=== PATIENT | female | born 1980 | race African-American/Black ===

== ENCOUNTER 2017-03-31 18:56 | Emergency (ER) | payer OTHER ==
[2017-03-31] MEDS ORDERED: ACETAMINOPHEN TAB 500 MG TAB PO STA (19:13)
--- NOTE | 2017-03-31 19:29 | ED ---
General Adult HPI - General Chief complaint: Chest Pain Stated complaint: chest pain Time Seen by Provider: 03/31/17 19:03 Source: patient, family, RN notes reviewed, old records reviewed Mode of arrival: wheelchair Limitations: no limitations - History of Present Illness Initial comments: Chief complaint and history of present illness a 36-year-old female here with his significant other. The patient reports she's had on-again off-again chest discomfort. No sensation. Nausea vomiting, no chills no fever no radiation of pain. Somewhat reproducible with deep pressure over the anterior chest wall. She can't think of having injured it but she does cleaning homes as a job. Patient reports she has had chest pain in the past review of her past chart from August 2015 find the patient with very similar complaints as final diagnosis of costochondritis. Patient states it feels somewhat like that. - Related Data Previous Rx's Medication Instructions Recorded Ibuprofen [Motrin] 600 mg PO Q6HR PRN #15 tab 03/31/17 Allergies Allergy/AdvReac Type Severity Reaction Status Date / Time No Known Allergies Allergy Verified 03/31/17 19:40 Review of Systems ROS Statement: Those systems with pertinent positive or pertinent negative responses have been documented in the HPI. Review of systems no visual acuity changes no headache no stiff neck no shortness of breath. She has anterior chest wall discomfort which can be reproduced by pushing hard on the anterior chest wall. Patient denies rashes or injuries. She does do housecleaning and some heavy lifting. Patient denies any GI/ problems or nausea vomiting or diarrhea. No change in appetite. No neuro deficits. All systems were reviewed. Past medical problems significant for hypertension and sickle cell trait. The patient's surgeries none. Family history grandmother had heart disease. Patient denies ALLERGIES nonsmoker drinks alcohol socially. She does smoke marijuana. ROS Other: All systems not noted in ROS Statement are negative. Past Medical History Past Medical History: Hypertension Additional Past Medical History / Comment(s): sickle cell trait History of Any Multi-Drug Resistant Organisms: None Reported Past Surgical History: No Surgical Hx Reported Past Psychological History: No Psychological Hx Reported Smoking Status: Never smoker Past Alcohol Use History: Occasional Past Drug Use History: Marijuana General Exam - General Exam Comments Initial Comments: General: The patient is awake and alert, in no distress, and does not appear acutely ill. You have a complaint of anterior chest wall discomfort. Vital signs shows temperature 98.2 pulse 80 respiratory rate 20 pulse ox 90% room air blood pressure 167/96. Patient reports that she does have a diagnosis of hypertension she used to be on blood pressure pills but has been noncompliant has not gone back for refills. We did discuss [id number] the danger of hypertension and the progressive worsening of symptoms possible stroke and heart attack. Eye: Pupils are equal, round and reactive to light, extra-ocular movements are intact ; there is normal conjunctiva bilaterally. No signs of icterus. Ears, nose, mouth and throat: There are moist mucous membranes and no oral lesions. Neck: The neck is supple, there is no tenderness. Cardiovascular: There is a regular rate and rhythm. No murmur, rub or gallop is appreciated. Slightly reproducible discomfort with her pushing on her own anterior chest wall. He states this feels like the chest pain that brought her in. Respiratory: Lungs are clear to auscultation, respirations are non-labored, breath sounds are equal. No wheezes, stridor, rales, or rhonchi. Gastrointestinal: Soft, non-distended, non-tender abdomen without masses or organomegaly noted. There is no rebound or guarding present. No CVA tenderness. Bowel sounds are unremarkable. Patient states no chance of being . Back: A complaint of back pain. Negative kidney punch his. Musculoskeletal: Normal ROM, no tenderness, There is no pedal edema. There is no calf tenderness or swelling. Sensation intact. Pulses equal bilaterally 2+. Neurological: No neuro deficits noted none complained of. No complaint of balance or weakness. Skin: Skin is warm and dry and no rashes or lesions are noted. Patient's denying any rashes. Limitations: no limitations Course Vital Signs 03/31/17 18:58 Temperature 98.2 F Pulse Rate 80 Respiratory 20 Rate Blood Pressure 167/96 O2 Sat by Pulse 98 Oximetry EKG Findings - EKG Comments: EKG Findings:: EKG was done and reviewed at 1921 showing normal sinus rhythm no acute ST elevation no ectopy no ischemic changes. Rate 66. I was 1:30 QRS 84 QT [address] Manzanares this EKG was compared to one done on 08/17/2015 and they are very similar. Dr. Manzanares Medical Decision Making - Medical Decision Making Medical decision making; patient's white count 8.8 hemoglobin 9.8 hematocrit of 32.3. D-dimer normal at 0.24. Potassium 3.9, BUN 11 creatinine 0.6 GFR greater than 60. Glucose 89. Troponin less than 0.012. Reticulocyte count normal 1.5. Has x-rays done AP and lateral views and reviewed by radiologist final impression is no acute cardiopulmonary process as read by Dr. Tang Discussed costochondritis patient was placed on ibuprofen for discomfort advised to follow-up with family physician. On discharge patient blood pressure 155/88. Again encouraged to follow with the family physician to take blood pressure pills if deemed necessary. - Lab Data Result diagrams: 03/31/17 19:28 03/31/17 19:28 Lab Results 03/31/17 03/31/17 03/31/17 Range/Units 19:28 19:28 19:28 WBC 8.8 (3.8-10.6) k/uL RBC 3.96 (3.80-5.40) m/uL Hgb 9.8 L (11.4-16.0) gm/dL Hct 32.3 L (34.0-46.0) % MCV 81.7 (80.0-100.0) fL MCH 24.9 L (25.0-35.0) pg MCHC 30.5 L (31.0-37.0) g/dL RDW 18.7 H (11.5-15.5) % Plt Count 267 (150-450) k/uL Neutrophils % 44 % Lymphocytes % 34 % Monocytes % 7 % Eosinophils % 10 % Basophils % 1 % Neutrophils # 3.9 (1.3-7.7) k/uL Lymphocytes # 3.0 (1.0-4.8) k/uL Monocytes # 0.6 (0-1.0) k/uL Eosinophils # 0.9 H (0-0.7) k/uL Basophils # 0.1 (0-0.2) k/uL Hypochromasia Moderate Anisocytosis Slight Microcytosis Slight Retic Count (0.5-2.0) % D-Dimer (<0.60) mg/L FEU Sodium 138 (137-145) mmol/L Potassium 3.9 (3.5-5.1) mmol/L Chloride 105 (98-107) mmol/L Carbon Dioxide 25 (22-30) mmol/L Anion Gap 8 mmol/L BUN 11 (7-17) mg/dL Creatinine 0.60 (0.52-1.04) mg/dL Est GFR (MDRD) Af Amer >60 (>60 ml/min/1.73 sqM) Est GFR (MDRD) Non-Af >60 (>60 ml/min/1.73 sqM) Glucose 89 (74-99) mg/dL Calcium 9.3 (8.4-10.2) mg/dL Total Bilirubin 0.5 (0.2-1.3) mg/dL AST 20 (14-36) U/L ALT 26 (9-52) U/L Alkaline Phosphatase 51 (38-126) U/L Total Creatine Kinase 88 (30-135) U/L CK-MB (CK-2) 0.3 (0.0-2.4) ng/mL CK-MB (CK-2) Rel Index 0.3 Troponin I <0.012 (0.000-0.034) ng/mL Total Protein 7.2 (6.3-8.2) g/dL Albumin 4.0 (3.5-5.0) g/dL 03/31/17 03/31/17 Range/Units 19:28 19:28 WBC (3.8-10.6) k/uL RBC (3.80-5.40) m/uL Hgb (11.4-16.0) gm/dL Hct (34.0-46.0) % MCV (80.0-100.0) fL MCH (25.0-35.0) pg MCHC (31.0-37.0) g/dL RDW (11.5-15.5) % Plt Count (150-450) k/uL Neutrophils % % Lymphocytes % % Monocytes % % Eosinophils % % Basophils % % Neutrophils # (1.3-7.7) k/uL Lymphocytes # (1.0-4.8) k/uL Monocytes # (0-1.0) k/uL Eosinophils # (0-0.7) k/uL Basophils # (0-0.2) k/uL Hypochromasia Anisocytosis Microcytosis Retic Count 1.5 (0.5-2.0) % D-Dimer 0.24 (<0.60) mg/L FEU Sodium (137-145) mmol/L Potassium (3.5-5.1) mmol/L Chloride (98-107) mmol/L Carbon Dioxide (22-30) mmol/L Anion Gap mmol/L BUN (7-17) mg/dL Creatinine (0.52-1.04) mg/dL Est GFR (MDRD) Af Amer (>60 ml/min/1.73 sqM) Est GFR (MDRD) Non-Af (>60 ml/min/1.73 sqM) Glucose (74-99) mg/dL Calcium (8.4-10.2) mg/dL Total Bilirubin (0.2-1.3) mg/dL AST (14-36) U/L ALT (9-52) U/L Alkaline Phosphatase (38-126) U/L Total Creatine Kinase (30-135) U/L CK-MB (CK-2) (0.0-2.4) ng/mL CK-MB (CK-2) Rel Index Troponin I (0.000-0.034) ng/mL Total Protein (6.3-8.2) g/dL Albumin (3.5-5.0) g/dL Disposition Clinical Impression: Costochondritis, acute Disposition: HOME SELF-CARE Condition: Fair Instructions: Costochondritis (ED) Additional Instructions: Try not to over stress your chest wall. Use ibuprofen 600 mg every 6 hours for pain. Follow-up with family physician evaluation for hypertension. Once you get to medications continue taking them. Prescriptions: Ibuprofen [Motrin] 600 mg PO Q6HR PRN #15 tab PRN Reason: Pain Referrals: None,Stated [Primary Care Provider] - 1-2 days Time of Disposition: 20:49
[2017-03-31 19:46] LABS: Anisocytosis Slight; Basophils # (A) 0.1 k/uL (0-0.2); Basophils % (A) 1 %; CH 25.1; CHCM 30.9; Eosinophils # (A) 0.9 k/uL (0-0.7); Eosinophils % (A) 10 %; HCT 32.3 % (34.0-46.0); HDW 3.03; HGB 9.8 gm/dL (11.4-16.0); Hypochromasia Moderate; Luc # (Auto) 0.37; Luc % (Auto) 4; Lymphocytes % (A) 34 %; MCH 24.9 pg (25.0-35.0); MCHC 30.5 g/dL (31.0-37.0); MCV 81.7 fL (80.0-100.0); Mean Platelet Volume 10.7; Microcytosis Slight; Monocytes # (A) 0.6 k/uL (0-1.0); Monocytes % (A) 7 %; Neutrophils # (A) 3.9 k/uL (1.3-7.7); Neutrophils % (A) 44 %; RBC 3.96 m/uL (3.80-5.40); RDW 18.7 % (11.5-15.5); WBC 8.8 k/uL (3.8-10.6)
--- NOTE | 2017-03-31 20:00 | XR ---
EXAMINATION TYPE: XR chest 2V DATE OF EXAM: 03/31/2017 COMPARISON: NONE HISTORY: Chest pain TECHNIQUE: Frontal and lateral views of the chest are obtained. FINDINGS: There is no focal air space opacity, pleural effusion, or pneumothorax seen. The cardiac silhouette size is within normal limits. The osseous structures are intact. IMPRESSION: No acute cardiopulmonary process.
[2017-03-31 20:14] LABS: ALT 26 U/L (9-52); AST 20 U/L (14-36); Alkaline Phosphatase 51 U/L (38-126); Anion Gap 8 mmol/L; Blood Urea Nitrogen 11 mg/dL (7-17); Calcium 9.3 mg/dL (8.4-10.2); Carbon Dioxide 25 mmol/L (22-30); Chloride 105 mmol/L (98-107); Glucose 89 mg/dL (74-99); Non-African American GFR(MDRD) >60 (>60 ml/min/1.73 sqM); Potassium 3.9 mmol/L (3.5-5.1); Sodium 138 mmol/L (137-145); Total Bilirubin 0.5 mg/dL (0.2-1.3); Total Protein 7.2 g/dL (6.3-8.2)
[2017-03-31 20:15] LABS: Creatine Kinase 88 U/L (30-135)
[2017-03-31 20:26] LABS: Creatine Kinase MB 0.3 ng/mL (0.0-2.4); Troponin I <0.012 ng/mL (0.000-0.034)
[2017-03-31 20:30] LABS: Reticulocyte % 1.5 % (0.5-2.0)
[2017-03-31] MEDS ORDERED: IBUPROFEN 600 MG STARTER PACK 4 TAB BTL PO STA (20:48)
[2017-03-31 21:37] VITALS: BP 145/72; PULSE 68; RESP 18; TEMP 98.1
== END 2017-03-31 21:37 | disposition home or self-care (01) ==
LOC: EC 18:56
DX: M94.0 Chondrocostal junction syndrome [Tietze] (principal)
CPT/HCPCS: 36415; 71020; 80053; 82550; 82553; 84484; 85025; 85045; 85379; 93005; 99285

== ENCOUNTER 2018-10-08 17:11 | Emergency (ER) | payer OTHER ==
[2018-10-08 17:16] VITALS: RESP 18
[2018-10-08] MEDS ORDERED: SODIUM CHLORIDE 0.9% 1,000 ML IV STA (17:43)
[2018-10-08] MEDS ORDERED: ACETAMINOPHEN TAB 500 MG TAB PO STA (17:43)
--- NOTE | 2018-10-08 17:45 | ED ---
General Adult HPI - General Chief complaint: Nausea/Vomiting/Diarrhea Stated complaint: Cough Time Seen by Provider: 10/08/18 17:21 Source: patient, RN notes reviewed, old records reviewed Mode of arrival: ambulatory Limitations: no limitations - History of Present Illness Initial comments: 37-year-old female patient past medical history of sickle cell trait presents to ED with complaint of 3 days of nonproductive cough, fevers, waxing waning nausea and vomiting. Patient also complains of some waxing and waning myalgias. Patient has not been previously evaluated for this problem. Patient denies other complaints. Patient denies chest pain, shortness breath, abdominal pain. Systemic: Pt denies fatigue, rash. Pt denies weakness, night sweats, weight loss. Neuro: Pt denies headache, visual disturbances, syncope or pre-syncope. HEENT: Pt denies ocular discharge or irritation, otalgia, rhinorrhea, pharyngitis or notable lymphadenopathy. Cardiopulmonary: Pt denies chest pain, SOB, heart palpitations, dyspnea on exertion. Abdominal/GI: Pt denies abdominal pain, diarrhea. : Pt denies dysuria, burning w/ urination, frequency/urgency. Denies new onset urinary or bowel incontinence. MSK: Pt denies loss of strength or function in extremities. Neuro: Pt denies new onset weakness, paresthesias. - Related Data Previous Rx's Medication Instructions Recorded Acetaminophen Tab [Tylenol] 1,000 mg PO TID 5 Days tablet 10/08/18 Ibuprofen [Motrin] 600 mg PO Q6HR PRN #40 day 10/08/18 Oseltamivir [Tamiflu] 75 mg PO Q12HR 5 Days cap 10/08/18 Allergies Allergy/AdvReac Type Severity Reaction Status Date / Time No Known Allergies Allergy Verified 10/08/18 17:38 Review of Systems ROS Statement: Those systems with pertinent positive or pertinent negative responses have been documented in the HPI. ROS Other: All systems not noted in ROS Statement are negative. Past Medical History Past Medical History: Hypertension Additional Past Medical History / Comment(s): sickle cell trait History of Any Multi-Drug Resistant Organisms: None Reported Past Surgical History: No Surgical Hx Reported Past Psychological History: No Psychological Hx Reported Smoking Status: Never smoker Past Alcohol Use History: Occasional Past Drug Use History: Marijuana General Exam - General Exam Comments Initial Comments: Constitutional: NAD, AOX3, Pt has pleasant affect. HEENT: NC/AT, trachea midline, neck supple, no lymphadenopathy. Posterior pharynx non erythematous, without exudates. External ears appear normal, without discharge. Mucous membranes moist. Eyes PERRLA, EOM intact. There is no scleral icterus. No pallor noted. Cardiopulmonary: RRR, no murmurs, rubs or gallops, no JVD noted. Lungs CTAB in anterior and posterior levi. No peripheral edema. Abdominal exam: Abdomen soft and non-distended. Abdomen non-tender to palpation in all 4 quadrants. Bowel sounds active in LLQ. No hepatosplenomegaly. No ecchymosis Neuro: CN II-XII grossly intact. No nuchal rigidity. MSK: No posterior calf tenderness bilaterally, homans sign negative bilaterally. Posterior tibialis and radial pulse +2 bilaterally. Sensation intact in upper and lower extremities. Full active ROM in upper and lower extremities, 5/5 stregnth. Limitations: no limitations Course Vital Signs 10/08/18 10/08/18 17:12 19:11 Temperature 100.4 F H 100.7 F H Pulse Rate 114 H 89 Respiratory 18 18 Rate Blood Pressure 143/96 147/96 O2 Sat by Pulse 100 100 Oximetry Medical Decision Making - Medical Decision Making 37-year-old female patient past medical history of sickle cell trait presents to ED with complaint of 3 days of nonproductive cough, fevers, waxing waning nausea and vomiting. Patient also complains of some waxing and waning myalgias. Patient has not been previously evaluated for this problem. Patient denies other complaints. Patient denies chest pain, shortness breath, abdominal pain. And vital signs initially displayed mild fever 100.4, mild tachycardia of 114. Heart rate within normal limits after fluid administration , antipyretic patient is still mildly febrile 100.7. Physical exam did not display acute pathology. Laboratory investigations revealed non-impressive CBC. Reticulocyte count 0.8. CMP noncompressive. UA contaminated. Influenza a positive. Chest x-ray displayed no acute process. Patient improved during course of treatment. Patient states that myalgias have improved with Tylenol, patient tolerating oral intake has not had any nausea or vomiting in ED. Patient to be treated with Tamiflu for influenza, will use tylenol / motrin for fever if necessary. Pt also prescribed zofran to use for nausea as needed. Pt denies that she is . Pt will follow up with PCP in 1-2 days. Pt to return to ED if new s/sx develop or if condition worsens in anyway. Case discussed with Dr. Bowles. - Lab Data Result diagrams: 10/08/18 18:08 10/08/18 18:08 Lab Results 10/08/18 10/08/18 10/08/18 Range/Units 18:00 18:08 18:08 WBC 4.3 (3.8-10.6) k/uL RBC 4.66 (3.80-5.40) m/uL Hgb 11.4 (11.4-16.0) gm/dL Hct 37.3 (34.0-46.0) % MCV 80.0 (80.0-100.0) fL MCH 24.6 L (25.0-35.0) pg MCHC 30.7 L (31.0-37.0) g/dL RDW 17.2 H (11.5-15.5) % Plt Count 274 (150-450) k/uL Neutrophils % 64 % Lymphocytes % 19 % Monocytes % 9 % Eosinophils % 2 % Basophils % 1 % Neutrophils # 2.8 (1.3-7.7) k/uL Lymphocytes # 0.8 L (1.0-4.8) k/uL Monocytes # 0.4 (0-1.0) k/uL Eosinophils # 0.1 (0-0.7) k/uL Basophils # 0.1 (0-0.2) k/uL Hypochromasia Moderate Anisocytosis Slight Microcytosis Slight Retic Count (0.5-2.0) % Sodium 137 (137-145) mmol/L Potassium 4.3 (3.5-5.1) mmol/L Chloride 100 (98-107) mmol/L Carbon Dioxide 28 (22-30) mmol/L Anion Gap 9 mmol/L BUN 6 L (7-17) mg/dL Creatinine 0.57 (0.52-1.04) mg/dL Est GFR (CKD-EPI)AfAm >90 (>60 ml/min/1.73 sqM) Est GFR (CKD-EPI)NonAf >90 (>60 ml/min/1.73 sqM) Glucose 99 (74-99) mg/dL Calcium 9.6 (8.4-10.2) mg/dL Total Bilirubin 0.2 (0.2-1.3) mg/dL AST 27 (14-36) U/L ALT 31 (9-52) U/L Alkaline Phosphatase 56 (38-126) U/L Total Protein 8.5 H (6.3-8.2) g/dL Albumin 4.4 (3.5-5.0) g/dL Urine Color Yellow Urine Appearance Cloudy H (Clear) Urine pH 6.5 (5.0-8.0) Ur Specific [place] 1.029 (1.001-1.035) Urine Protein 1+ H (Negative) Urine Glucose (UA) Negative (Negative) Urine Ketones Trace H (Negative) Urine Blood Negative (Negative) Urine Nitrite Negative (Negative) Urine Bilirubin Negative (Negative) Urine Urobilinogen 2.0 (<2.0) mg/dL Ur Leukocyte Esterase Trace H (Negative) Urine RBC 2 (0-5) /hpf Ur Squamous Epith Cells 96 H (0-4) /hpf Amorphous Sediment Occasional H (None) /hpf Urine Bacteria Few H (None) /hpf Hyaline Casts 16 H (0-2) /lpf Urine Mucus Occasional H (None) /hpf Influenza Type A RNA (Not Detectd) Influenza Type B (PCR) (Not Detectd) 10/08/18 10/08/18 Range/Units 18:08 18:08 WBC (3.8-10.6) k/uL RBC (3.80-5.40) m/uL Hgb (11.4-16.0) gm/dL Hct (34.0-46.0) % MCV (80.0-100.0) fL MCH (25.0-35.0) pg MCHC (31.0-37.0) g/dL RDW (11.5-15.5) % Plt Count (150-450) k/uL Neutrophils % % Lymphocytes % % Monocytes % % Eosinophils % % Basophils % % Neutrophils # (1.3-7.7) k/uL Lymphocytes # (1.0-4.8) k/uL Monocytes # (0-1.0) k/uL Eosinophils # (0-0.7) k/uL Basophils # (0-0.2) k/uL Hypochromasia Anisocytosis Microcytosis Retic Count 0.8 (0.5-2.0) % Sodium (137-145) mmol/L Potassium (3.5-5.1) mmol/L Chloride (98-107) mmol/L Carbon Dioxide (22-30) mmol/L Anion Gap mmol/L BUN (7-17) mg/dL Creatinine (0.52-1.04) mg/dL Est GFR (CKD-EPI)AfAm (>60 ml/min/1.73 sqM) Est GFR (CKD-EPI)NonAf (>60 ml/min/1.73 sqM) Glucose (74-99) mg/dL Calcium (8.4-10.2) mg/dL Total Bilirubin (0.2-1.3) mg/dL AST (14-36) U/L ALT (9-52) U/L Alkaline Phosphatase (38-126) U/L Total Protein (6.3-8.2) g/dL Albumin (3.5-5.0) g/dL Urine Color Urine Appearance (Clear) Urine pH (5.0-8.0) Ur Specific [place] (1.001-1.035) Urine Protein (Negative) Urine Glucose (UA) (Negative) Urine Ketones (Negative) Urine Blood (Negative) Urine Nitrite (Negative) Urine Bilirubin (Negative) Urine Urobilinogen (<2.0) mg/dL Ur Leukocyte Esterase (Negative) Urine RBC (0-5) /hpf Ur Squamous Epith Cells (0-4) /hpf Amorphous Sediment (None) /hpf Urine Bacteria (None) /hpf Hyaline Casts (0-2) /lpf Urine Mucus (None) /hpf Influenza Type A RNA Detected H (Not Detectd) Influenza Type B (PCR) Not Detected (Not Detectd) Disposition Clinical Impression: Influenza A Disposition: HOME SELF-CARE Condition: Stable Instructions (If sedation given, give patient instructions): Influenza (ED) Additional Instructions: Patient to adhere to previously discussed treatment plan and will take medication(s) as directed. Patient to follow up with PCP in 1-2 days. Patient to return to ED if symptoms do not improve. Please use Tylenol and Motrin for fever. Please see his Tamiflu as directed. Please follow-up with PCP in 1-2 days. Please return to ER if condition worsens in any way. Prescriptions: Acetaminophen Tab [Tylenol] 1,000 mg PO TID 5 Days tablet Ibuprofen [Motrin] 600 mg PO Q6HR PRN #40 day PRN Reason: Pain Oseltamivir [Tamiflu] 75 mg PO Q12HR 5 Days cap Is patient prescribed a controlled substance at d/c from ED?: No Referrals: None,Stated [Primary Care Provider] - 1-2 days Time of Disposition: 19:39
[2018-10-08 18:19] LABS: Anisocytosis Slight; Basophils # (A) 0.1 k/uL (0-0.2); Basophils % (A) 1 %; Eosinophils # (A) 0.1 k/uL (0-0.7); Eosinophils % (A) 2 %; HCT 37.3 % (34.0-46.0); HGB 11.4 gm/dL (11.4-16.0); Hypochromasia Moderate; Lymphocytes # (A) 0.8 k/uL (1.0-4.8); Lymphocytes % (A) 19 %; MCH 24.6 pg (25.0-35.0); MCHC 30.7 g/dL (31.0-37.0); Mean Platelet Volume 8.9; Microcytosis Slight; Monocytes # (A) 0.4 k/uL (0-1.0); Monocytes % (A) 9 %; Neutrophils # (A) 2.8 k/uL (1.3-7.7); Neutrophils % (A) 64 %; Platelet Count 274 k/uL (150-450); RBC 4.66 m/uL (3.80-5.40); RDW 17.2 % (11.5-15.5); WBC 4.3 k/uL (3.8-10.6)
[2018-10-08 18:24] LABS: Reticulocyte % 0.8 % (0.5-2.0)
[2018-10-08 18:30] LABS: ALT 31 U/L (9-52); AST 27 U/L (14-36); Albumin 4.4 g/dL (3.5-5.0); Alkaline Phosphatase 56 U/L (38-126); Anion Gap 9 mmol/L; Blood Urea Nitrogen 6 mg/dL (7-17); Calcium 9.6 mg/dL (8.4-10.2); Carbon Dioxide 28 mmol/L (22-30); Chloride 100 mmol/L (98-107); Glucose 99 mg/dL (74-99); Potassium 4.3 mmol/L (3.5-5.1); Sodium 137 mmol/L (137-145); Total Bilirubin 0.2 mg/dL (0.2-1.3); Total Protein 8.5 g/dL (6.3-8.2)
[2018-10-08 18:31] LABS: Amorphous Sediment,Urine Occasional /hpf; Appearance,Urine Cloudy (Clear); Bacteria,Urine Few /hpf; Bilirubin,Urine Negative (Negative); Blood,Urine Negative (Negative); Color,Urine Yellow; Glucose,Urine (UA) Negative (Negative); Hyaline Casts,Urine 16 /lpf (0-2); Ketones,Urine Trace (Negative); Leukocyte Esterase,Urine Trace (Negative); Mucus,Urine Occasional /hpf; Nitrite,Urine Negative (Negative); PH, Urine 6.5 (5.0-8.0); Protein,Urine 1+ (Negative); RBC,Urine 2 /hpf (0-5); Specific Gravity,Urine 1.029 (1.001-1.035); Squamous Epithelial Cell,Urine 96 /hpf (0-4)
--- NOTE | 2018-10-08 18:50 | XR ---
EXAMINATION TYPE: XR chest 2V DATE OF EXAM: 10/08/2018 COMPARISON: NONE HISTORY: Chest pain TECHNIQUE: Frontal and lateral views of the chest are obtained. FINDINGS: Heart and mediastinum are normal. Lungs are clear. Diaphragm is normal. Bony thorax is int act. Pulmonary vascularity is normal. IMPRESSION: Normal chest
[2018-10-08 19:11] VITALS: BP 147/96; PULSE 89; TEMP 100.7
== END 2018-10-08 20:06 | disposition home or self-care (01) ==
LOC: EC 17:11
DX: J10.1 Influenza due to other identified influenza virus with other respiratory manifestations (principal); R11.10 Vomiting, unspecified; R19.7 Diarrhea, unspecified
CPT/HCPCS: 36415; 71046; 80053; 81001; 85025; 85045; 87086; 87502; 96360; 99284

== ENCOUNTER 2019-05-21 07:53 | Emergency (ER) | payer OTHER ==
[2019-05-21 07:58] VITALS: RESP 18; TEMP 98.3
[2019-05-21] MEDS ORDERED: SODIUM CHLORIDE 0.9% 1,000 ML IV STA (08:01)
--- NOTE | 2019-05-21 08:23 | ED ---
General Adult HPI - General Chief complaint: Dizziness Stated complaint: Dizziness Time Seen by Provider: 05/21/19 08:01 Source: patient Mode of arrival: ambulatory Limitations: no limitations - History of Present Illness Initial comments: Dictation was produced using [employer] dictation software. please excuse any grammatical, word or spelling errors. Chief Complaint: 38-year-old female past medical history of sickle cell trait and hypertension presents with mild headache, intermittent lower extremity pain and numbness. History of Present Illness: Patient is a 38-year-old female she comes in with multiple complaints. Patient reports that over the last several days she's been having these symptoms. Patient states she has intermittent headaches. She states she has a history of these headaches. She gets them frequently. She states her headache is mild. Denies any headache at this time. She also complains of intermittent shooting pains and numbness to her bilateral lower extremities. She states that the symptoms are of the whole leg mainly at the lateral and anterior portions. States that these symptoms are intermittent and episodic lasting for several seconds. States that her symptoms are exacerbated with work. Patient localizes the intermittent numbness to her lateral thighs bilaterally. Patient has a history of tubal ligation. Denies any chest pain shortness of breath. No other pain complaints. Patient is asymptomatic at this time. The ROS documented in this emergency department record has been reviewed and confirmed by me. Those systems with pertinent positive or negative responses have been documented in the HPI. All other systems are other negative and/or noncontributory. PHYSICAL EXAM: General Impression: Alert and oriented x3, not in acute distress HEENT: Normocephalic atraumatic, extra-ocular movements intact, pupils equal and reactive to light bilaterally, mucous membranes moist. Cardiovascular: Heart regular rate and rhythm, S1&S2 audible, no murmurs, rubs or gallops Chest: Lungs clear to auscultation bilaterally, no rhonchi, no wheeze, no rales Abdomen: Bowel sounds present, abdomen soft, non-tender, non-distended, no organomegaly Musculoskeletal: Pulses present and equal in all extremities, no peripheral edema Motor: no focal deficits noted Neurological: CN II-XII grossly intact, no focal motor or sensory deficits noted Skin: Intact with no visualized rashes Psych: Normal affect and mood ED course:38 yo female presents with multiple complaints patient has history of sickle cell trait. Upon arrival are within acceptable limits. Patient's physical examination is benign.Laboratory evaluation obtained. CBC, metabolic panel, urinalysis is unremarkable. Patient's well-appearing at bedside she is reevaluated. At this point there is no clear reason for patient's symptoms. She is well-appearing. I doubt any serious pathology taking place at this time. She is advised to follow up with her primary care physician. Patient understandable agreeable to plan. Patient requests work note. Work note provided. EKG interpretation: Ventricular rate 63, normal sinus rhythm, NM interval 146, QS 84, QTC 454. Compared to EKG from 06/07/2017 without any changes.. Overall, this EKG is unremarkable - Related Data Home Medications Medication Instructions Recorded Confirmed No Known Home Medications 05/21/19 05/21/19 Allergies Allergy/AdvReac Type Severity Reaction Status Date / Time No Known Allergies Allergy Verified 05/21/19 09:01 Review of Systems ROS Statement: Those systems with pertinent positive or pertinent negative responses have been documented in the HPI. ROS Other: All systems not noted in ROS Statement are negative. Past Medical History Past Medical History: Hypertension Additional Past Medical History / Comment(s): sickle cell trait History of Any Multi-Drug Resistant Organisms: None Reported Past Surgical History: No Surgical Hx Reported Past Psychological History: No Psychological Hx Reported Smoking Status: Never smoker Past Alcohol Use History: Occasional Past Drug Use History: Marijuana General Exam Limitations: no limitations Course Vital Signs 05/21/19 07:55 Temperature 98.3 F Pulse Rate 70 Respiratory 18 Rate Blood Pressure 135/69 O2 Sat by Pulse 99 Oximetry Medical Decision Making - Lab Data Result diagrams: 05/21/19 08:36 05/21/19 08:36 Lab Results 05/21/19 05/21/19 05/21/19 Range/Units 08:36 08:36 08:55 WBC 5.6 (3.8-10.6) k/uL RBC 4.12 (3.80-5.40) m/uL Hgb 10.3 L (11.4-16.0) gm/dL Hct 32.9 L (34.0-46.0) % MCV 79.9 L (80.0-100.0) fL MCH 24.9 L (25.0-35.0) pg MCHC 31.2 (31.0-37.0) g/dL RDW 16.8 H (11.5-15.5) % Plt Count 213 (150-450) k/uL Neutrophils % 47 % Lymphocytes % 33 % Monocytes % 5 % Eosinophils % 10 % Basophils % 1 % Neutrophils # 2.7 (1.3-7.7) k/uL Lymphocytes # 1.8 (1.0-4.8) k/uL Monocytes # 0.3 (0-1.0) k/uL Eosinophils # 0.6 (0-0.7) k/uL Basophils # 0.1 (0-0.2) k/uL Hypochromasia Marked Anisocytosis Slight Microcytosis Slight Sodium 137 (137-145) mmol/L Potassium 4.2 (3.5-5.1) mmol/L Chloride 106 (98-107) mmol/L Carbon Dioxide 21 L (22-30) mmol/L Anion Gap 10 mmol/L BUN 13 (7-17) mg/dL Creatinine 0.51 L (0.52-1.04) mg/dL Est GFR (CKD-EPI)AfAm >90 (>60 ml/min/1.73 sqM) Est GFR (CKD-EPI)NonAf >90 (>60 ml/min/1.73 sqM) Glucose 116 H (74-99) mg/dL Calcium 9.8 (8.4-10.2) mg/dL Magnesium 2.0 (1.6-2.3) mg/dL Urine Color Light Yellow Urine Appearance Clear (Clear) Urine pH 6.0 (5.0-8.0) Ur Specific [place] 1.019 (1.001-1.035) Urine Protein Negative (Negative) Urine Glucose (UA) Negative (Negative) Urine Ketones Negative (Negative) Urine Blood Negative (Negative) Urine Nitrite Negative (Negative) Urine Bilirubin Negative (Negative) Urine Urobilinogen <2.0 (<2.0) mg/dL Ur Leukocyte Esterase Negative (Negative) Disposition Clinical Impression: Numbness Disposition: HOME SELF-CARE Condition: Good Instructions (If sedation given, give patient instructions): Pain Management in Older Adults (DC) Is patient prescribed a controlled substance at d/c from ED?: No Referrals: None,Stated [Primary Care Provider] - 1-2 days Time of Disposition: 10:01
[2019-05-21 09:09] LABS: African American GFR (CKD) >90 (>60 ml/min/1.73 sqM); Anion Gap 10 mmol/L; Blood Urea Nitrogen 13 mg/dL (7-17); Calcium 9.8 mg/dL (8.4-10.2); Carbon Dioxide 21 mmol/L (22-30); Chloride 106 mmol/L (98-107); Glucose 116 mg/dL (74-99); Potassium 4.2 mmol/L (3.5-5.1); Sodium 137 mmol/L (137-145)
[2019-05-21 09:13] LABS: Anisocytosis Slight; Basophils # (A) 0.1 k/uL (0-0.2); Basophils % (A) 1 %; Eosinophils # (A) 0.6 k/uL (0-0.7); Eosinophils % (A) 10 %; HCT 32.9 % (34.0-46.0); HGB 10.3 gm/dL (11.4-16.0); Hypochromasia Marked; Lymphocytes # (A) 1.8 k/uL (1.0-4.8); Lymphocytes % (A) 33 %; MCH 24.9 pg (25.0-35.0); MCHC 31.2 g/dL (31.0-37.0); MCV 79.9 fL (80.0-100.0); Mean Platelet Volume 8.5; Microcytosis Slight; Monocytes # (A) 0.3 k/uL (0-1.0); Monocytes % (A) 5 %; Neutrophils # (A) 2.7 k/uL (1.3-7.7); Neutrophils % (A) 47 %; Platelet Count 213 k/uL (150-450); RBC 4.12 m/uL (3.80-5.40); RDW 16.8 % (11.5-15.5); WBC 5.6 k/uL (3.8-10.6)
[2019-05-21 09:32] LABS: Appearance,Urine Clear (Clear); Bilirubin,Urine Negative (Negative); Blood,Urine Negative (Negative); Color,Urine Light Yellow; Glucose,Urine (UA) Negative (Negative); Ketones,Urine Negative (Negative); Leukocyte Esterase,Urine Negative (Negative); Nitrite,Urine Negative (Negative); Protein,Urine Negative (Negative); Specific Gravity,Urine 1.019 (1.001-1.035); Urobilinogen,Urine <2.0 mg/dL (<2.0)
[2019-05-21 10:22] VITALS: BP 124/79; PULSE 68
== END 2019-05-21 10:21 | disposition home or self-care (01) ==
LOC: EC 07:53
DX: R20.0 Anesthesia of skin (principal); R42 Dizziness and giddiness; R51 Headache; M79.604 Pain in right leg; M79.605 Pain in left leg
CPT/HCPCS: 36415; 80048; 81003; 83735; 85025; 93005; 96360; 99284

== ENCOUNTER → 2019-09-30 | Outpatient (CLI) | payer OTHER ==
--- NOTE | 2019-09-30 11:58 | MM ---
Reason for exam: screening (asymptomatic). History: Family history of breast cancer in paternal grandmother at age 50. Took hormonal contraceptives for 2 years beginning at age 19. Physical Findings: Nurse Summary: 1.0cm nodule in the right breast at 10 o'clock (nurse ingrid). MG Diagnostic Mammo w CAD ANA Bilateral CC and MLO view(s) were taken. The breast tissue is heterogeneously dense. This may lower the sensitivity of mammography. Mass right breast at site of palpable. Several nodules left breast. Ultrasound recommended. These results were verbally communicated with the patient and result sheet given to the patient on 09/30/19. ASSESSMENT: Incomplete: need additional imaging evaluation, BI-RAD 0 RECOMMENDATION: Ultrasound of both breasts. Manage patient on a clinical basis.
--- NOTE | 2019-09-30 12:01 | USB ---
Reason for exam: additional evaluation requested from abnormal screening. History: Family history of breast cancer in paternal grandmother at age 50. Took hormonal contraceptives for 2 years beginning at age 19. US Breast Workup Limited ANA Right limited breast ultrasound including focal area of concern, retroareolar and axilla demonstrates a 2.1 x 1.8 x 1.0cm solid, hypoechoic lesion at 10 o'clock, probable fibroadenoma, biopsy recommended. Left limited breast ultrasound including focal area of concern, retroareolar and axilla demonstrates a 0.8 x 0.7 x 0.5cm solid, hypoechoic lesion at 7 o'clock and a 0.9 x 1.2 x 0.7cm solid, hypoechoic lesion at 10 o'clock. These results were verbally communicated with the patient and result sheet given to the patient on 09/30/19. ASSESSMENT: Suspicious, BI-RAD 4 RECOMMENDATION: Ultrasound core biopsy of the right breast. Called Dr. Mccarthy's office with mammographic findings and has scheduled an appointment for the patient for 11/12/19 at 8:[address] Murguia. Biopsy scheduled for 10/26/19 at 12:20. PRELIMINARY REPORT CALLED AND FAXED TO DR. MURGUIA ON 09/30/19.
== END | disposition home or self-care (01) ==
LOC: RADMAMWWP 10:08
PROVIDERS: ATTEND Family Medicine
DX: N64.4 Mastodynia (principal); Z80.3 Family history of malignant neoplasm of breast; R92.8 Other abnormal and inconclusive findings on diagnostic imaging of breast
CPT/HCPCS: 77066

== ENCOUNTER 2020-03-30 11:25 | Emergency (ER) | payer OTHER ==
[2020-03-30 11:55] VITALS: TEMP 98.9
[2020-03-30] MEDS ORDERED: SODIUM CHLORIDE 0.9% 1,000 ML IV STA ×2 (12:12)
[2020-03-30] MEDS ORDERED: hydrALAZINE HCL 20 MG/ML 1 ML VIAL IVP STA (12:14)
--- NOTE | 2020-03-30 12:27 | ED ---
Dizziness HPI - General Chief Complaint: Dizziness Stated Complaint: High BP/headache Time Seen by Provider: 03/30/20 12:05 Source: patient, RN notes reviewed, old records reviewed Mode of arrival: ambulatory Limitations: no limitations - History of Present Illness Initial Comments: Patient is a 39-year-old female with history of hypertension and does take her medications. She presents emergency room today with complaints of a headache feeling lightheaded. She reports it seems to be related to elevated blood pressure. She reports that she was not feeling well prior to going to work today and took her blood pressure at home and was elevated. Patient states that she's had no fevers or chills, chest pain or shortness of breath. She reports that her headache feels like her typical headaches blood pressure. She denies any room spinning or visual changes. - Related Data Home Medications Medication Instructions Recorded Confirmed Chlorthalidone [Hygroton] 25 mg PO BID 03/23/20 03/30/20 amLODIPine [Norvasc] 5 mg PO DAILY 03/30/20 03/30/20 buPROPion HCL [Wellbutrin SR] 150 mg PO BID 03/30/20 03/30/20 traZODone HCL 100 mg PO HS PRN 03/30/20 03/30/20 Previous Rx's Medication Instructions Recorded Ferrous Sulfate [Iron] 325 mg PO DAILY #30 tablet 03/30/20 Allergies Allergy/AdvReac Type Severity Reaction Status Date / Time No Known Allergies Allergy Verified 03/30/20 13:27 Review of Systems ROS Statement: Those systems with pertinent positive or pertinent negative responses have been documented in the HPI. ROS Other: All systems not noted in ROS Statement are negative. Past Medical History Past Medical History: Hypertension Additional Past Medical History / Comment(s): sickle cell trait History of Any Multi-Drug Resistant Organisms: None Reported Past Surgical History: No Surgical Hx Reported Past Anesthesia/Blood Transfusion Reactions: No Reported Reaction Past Psychological History: No Psychological Hx Reported Smoking Status: Never smoker Past Alcohol Use History: Occasional Past Drug Use History: None Reported General Exam - General Exam Comments Initial Comments: 39 -year-old female. Patient is on the phone arguing with someone. Pt is upset. Limitations: no limitations General appearance: alert, in no apparent distress Head exam: Present: atraumatic, normocephalic, normal inspection Eye exam: Present: normal appearance, PERRL, EOMI. Absent: scleral icterus, conjunctival injection, periorbital swelling ENT exam: Present: normal exam, mucous membranes moist Neck exam: Present: normal inspection. Absent: tenderness, meningismus, lymphadenopathy Respiratory exam: Present: normal lung sounds bilaterally. Absent: respiratory distress, wheezes, rales, rhonchi, stridor Cardiovascular Exam: Present: regular rate, normal rhythm, normal heart sounds. Absent: systolic murmur, diastolic murmur, rubs, gallop, clicks GI/Abdominal exam: Present: soft Extremities exam: Present: normal inspection, full ROM, normal capillary refill. Absent: tenderness, pedal edema, joint swelling, calf tenderness Back exam: Present: normal inspection Neurological exam: Present: alert, oriented X3, CN II-XII intact Psychiatric exam: Present: normal affect, normal mood Skin exam: Present: warm, dry, intact, normal color. Absent: rash Course Vital Signs 03/30/20 03/30/20 03/30/20 11:50 12:30 12:38 Temperature 98.9 F Pulse Rate 79 75 Respiratory 18 18 Rate Blood Pressure 185/117 158/96 O2 Sat by Pulse 100 100 100 Oximetry 03/30/20 03/30/20 03/30/20 12:45 13:00 13:03 Temperature Pulse Rate 91 Respiratory 16 Rate Blood Pressure 158/96 158/96 147/98 O2 Sat by Pulse 100 100 100 Oximetry 03/30/20 13:15 Temperature Pulse Rate Respiratory Rate Blood Pressure 147/98 O2 Sat by Pulse 100 Oximetry Medical Decision Making - Medical Decision Making Pt is a 39 year old female presents today with CC of dizziness associated with elevated blood pressure. Patient reports his symptoms are similar to previous episodes of high blood pressure. The complaining of mild headache with cervical for classic headaches. Patient presents emergency room quite upset and was yelling at her friend on the phone. Discusses likely contributing to her blood pressure. Patient was given IV fluids. Labs were obtained and EKG was normal. Patient is given hydralazine blood pressure normalized. On reevaluation she states she showed better. Patient was found be slightly anemic with a hemoglobin 8.7. She does report that she has history of sickle cell trait and states that she does have occasional heavy menstrual periods discussed Patient is to have this rechecked. We'll start the Patient on iron as well. All questions are answered. - Lab Data Result diagrams: 03/30/20 12:21 03/30/20 12:21 Lab Results 03/30/20 03/30/20 03/30/20 Range/Units 12:21 12:21 12:21 WBC 7.1 (3.8-10.6) k/uL RBC 4.44 (3.80-5.40) m/uL Hgb 8.7 L (11.4-16.0) gm/dL Hct 30.7 L (34.0-46.0) % MCV 69.1 L (80.0-100.0) fL MCH 19.6 L (25.0-35.0) pg MCHC 28.3 L (31.0-37.0) g/dL RDW 20.2 H (11.5-15.5) % Plt Count 252 (150-450) k/uL Neutrophils % 61 % Lymphocytes % 24 % Monocytes % 7 % Eosinophils % 5 % Basophils % 1 % Neutrophils # 4.3 (1.3-7.7) k/uL Lymphocytes # 1.7 (1.0-4.8) k/uL Monocytes # 0.5 (0-1.0) k/uL Eosinophils # 0.3 (0-0.7) k/uL Basophils # 0.1 (0-0.2) k/uL Hypochromasia Marked Poikilocytosis Slight Anisocytosis Moderate Microcytosis Marked PT 10.7 (9.0-12.0) sec INR 1.0 (<1.2) Sodium 138 (137-145) mmol/L Potassium 3.5 (3.5-5.1) mmol/L Chloride 107 (98-107) mmol/L Carbon Dioxide 23 (22-30) mmol/L Anion Gap 8 mmol/L BUN 9 (7-17) mg/dL Creatinine 0.52 (0.52-1.04) mg/dL Est GFR (CKD-EPI)AfAm >90 (>60 ml/min/1.73 sqM) Est GFR (CKD-EPI)NonAf >90 (>60 ml/min/1.73 sqM) Glucose 107 H (74-99) mg/dL Calcium 9.6 (8.4-10.2) mg/dL Total Bilirubin 0.5 (0.2-1.3) mg/dL AST 22 (14-36) U/L ALT 13 (4-34) U/L Alkaline Phosphatase 50 (38-126) U/L Troponin I (0.000-0.034) ng/mL Total Protein 7.8 (6.3-8.2) g/dL Albumin 4.2 (3.5-5.0) g/dL 03/30/20 Range/Units 12:21 WBC (3.8-10.6) k/uL RBC (3.80-5.40) m/uL Hgb (11.4-16.0) gm/dL Hct (34.0-46.0) % MCV (80.0-100.0) fL MCH (25.0-35.0) pg MCHC (31.0-37.0) g/dL RDW (11.5-15.5) % Plt Count (150-450) k/uL Neutrophils % % Lymphocytes % % Monocytes % % Eosinophils % % Basophils % % Neutrophils # (1.3-7.7) k/uL Lymphocytes # (1.0-4.8) k/uL Monocytes # (0-1.0) k/uL Eosinophils # (0-0.7) k/uL Basophils # (0-0.2) k/uL Hypochromasia Poikilocytosis Anisocytosis Microcytosis PT (9.0-12.0) sec INR (<1.2) Sodium (137-145) mmol/L Potassium (3.5-5.1) mmol/L Chloride (98-107) mmol/L Carbon Dioxide (22-30) mmol/L Anion Gap mmol/L BUN (7-17) mg/dL Creatinine (0.52-1.04) mg/dL Est GFR (CKD-EPI)AfAm (>60 ml/min/1.73 sqM) Est GFR (CKD-EPI)NonAf (>60 ml/min/1.73 sqM) Glucose (74-99) mg/dL Calcium (8.4-10.2) mg/dL Total Bilirubin (0.2-1.3) mg/dL AST (14-36) U/L ALT (4-34) U/L Alkaline Phosphatase (38-126) U/L Troponin I <0.012 (0.000-0.034) ng/mL Total Protein (6.3-8.2) g/dL Albumin (3.5-5.0) g/dL 03/30/20 12:39 EKG shows normal sinus rhythm normal EKG. Ventricular rate of 75 bpm. NC interval is 1:30 milliseconds. QS duration is 86 no seconds. QT QTc is 402/448 ms. Disposition Clinical Impression: Hypertension, Anemia Disposition: HOME SELF-CARE Condition: Good Instructions (If sedation given, give patient instructions): Hypertension (ED), Anemia (ED) Additional Instructions: Please use medication as discussed. Please follow up with family doctor if symptoms have not improved over the next two days. Please return to the emergenc y room if your symptoms increase or worsen or for any other concerns. Prescriptions: Ferrous Sulfate [Iron] 325 mg PO DAILY #30 tablet Is patient prescribed a controlled substance at d/c from ED?: No Referrals: Roderick Mccarthy MD [Primary Care Provider] - 1-2 days Time of Disposition: 13:27
[2020-03-30 12:30] LABS: Anisocytosis Moderate; Basophils # (A) 0.1 k/uL (0-0.2); Basophils % (A) 1 %; Eosinophils # (A) 0.3 k/uL (0-0.7); Eosinophils % (A) 5 %; HCT 30.7 % (34.0-46.0); HGB 8.7 gm/dL (11.4-16.0); Hypochromasia Marked; Lymphocytes # (A) 1.7 k/uL (1.0-4.8); Lymphocytes % (A) 24 %; MCH 19.6 pg (25.0-35.0); MCHC 28.3 g/dL (31.0-37.0); MCV 69.1 fL (80.0-100.0); Mean Platelet Volume 9.1; Microcytosis Marked; Monocytes # (A) 0.5 k/uL (0-1.0); Monocytes % (A) 7 %; Neutrophils # (A) 4.3 k/uL (1.3-7.7); Neutrophils % (A) 61 %; Platelet Count 252 k/uL (150-450); Poikilocytosis Slight; RBC 4.44 m/uL (3.80-5.40); RDW 20.2 % (11.5-15.5); WBC 7.1 k/uL (3.8-10.6)
[2020-03-30 12:44] LABS: ALT 13 U/L (4-34); AST 22 U/L (14-36); African American GFR (CKD) >90 (>60 ml/min/1.73 sqM); Albumin 4.2 g/dL (3.5-5.0); Alkaline Phosphatase 50 U/L (38-126); Anion Gap 8 mmol/L; Blood Urea Nitrogen 9 mg/dL (7-17); Calcium 9.6 mg/dL (8.4-10.2); Carbon Dioxide 23 mmol/L (22-30); Chloride 107 mmol/L (98-107); Glucose 107 mg/dL (74-99); Non-African American GFR(CKD) >90 (>60 ml/min/1.73 sqM); Potassium 3.5 mmol/L (3.5-5.1); Sodium 138 mmol/L (137-145); Total Bilirubin 0.5 mg/dL (0.2-1.3); Total Protein 7.8 g/dL (6.3-8.2)
[2020-03-30 12:46] LABS: Prothrombin Time 10.7 sec (9.0-12.0)
[2020-03-30 13:04] VITALS: BP 147/98; PULSE 91; RESP 16
== END 2020-03-30 13:59 | disposition home or self-care (01) ==
LOC: EC 11:25
DX: I10 Essential (primary) hypertension (principal); D64.9 Anemia, unspecified; D57.3 Sickle-cell trait; Z79.899 Other long term (current) drug therapy
CPT/HCPCS: 36415; 93005; 80053; 84484; 85025; 85610; 99284; 96374; 96361; J0360

== ENCOUNTER → 2020-04-04 | Day surgery (SDC) | payer OTHER ==
[2020-04-04 09:48] VITALS: PULSE 74; RESP 16; TEMP 98.1
[2020-04-04 10:29] VITALS: BP 156/106
--- NOTE | 2020-04-04 10:52 | USB ---
EXAMINATION TYPE: US discontinued breast bx RT DATE OF EXAM: 04/04/2020 CLINICAL HISTORY: HIGH BP. TECHNIQUE: Ultrasound guided vaccuum assisted core biopsy of the breast. COMPARISON: NONE FINDINGS: Preprocedure evaluation was performed. Despite current medications, blood pressure remained elevated. The patient will be rescheduled when the blood pressure under tighter control. IMPRESSION: 1. Procedure terminated due to elevated blood pressure Recommendations: 1. Evaluation of patient's hypertension. 2. Reschedule exam following hypertension control.
== END ==
LOC: RADUSWWP 09:29
PROVIDERS: ATTEND Surgery
DX: R92.8 Other abnormal and inconclusive findings on diagnostic imaging of breast (principal); Z53.8 Procedure and treatment not carried out for other reasons

== ENCOUNTER → 2020-06-06 | Day surgery (SDC) | payer OTHER ==
[2020-06-06 13:40] VITALS: RESP 16
[2020-06-06 14:48] VITALS: BP 126/86; PULSE 68; TEMP 98.2
--- NOTE | 2020-06-06 14:49 | USB ---
EXAMINATION TYPE: US biopsy breast VAD RT, MG diagnostic mammo RT wo CAD DATE OF EXAM: 06/06/2020 CLINICAL HISTORY: R92.8 PREV ABNORMAL MAMMOGRAM. Abnormal ultrasound. TECHNIQUE: Ultrasound guided core biopsy of right breast with clip placement and follow-up right stefan st mammogram. COMPARISON: Bilateral breast ultrasound and mammogram September 30, 2019 FINDINGS: The procedure of ultrasound guided core biopsy was explained to the patient. Benefits, alt ernatives, and risks were discussed. An informed consent was then obtained. The patient was placed in supine positioning for imaging and for the procedure. Preprocedure ultraso und redemonstrates the largest oval hypoechoic solid mass 10:00 position zone A measuring near 2 cm l lor axis. The overlying skin was prepped and draped in usual sterile fashion. Lidocaine is used as a nesthetic into the skin and subcutaneous tissue up to area of concern in the right breast. Under ultrasound guidance, a vacuum assisted biopsy gun device was used to obtain 3 core samples. Fo llowing this, a biopsy clip was left in lesion. The patient tolerated the procedure well without any immediate complication. The patient was kept in the radiology department for short stay after the procedure and then discharged home in stable condi tion. Postprocedure mammogram shows successful deployment of clip corresponding to the largest lesion in th e anterior depth slightly outer aspect right breast along the posterior aspect of the lesion. Lesion noted mobile during sampling. IMPRESSION: Successful, uncomplicated ultrasound guided core biopsy of area of concern in the right b reast, full pathology results to follow. Low index of suspicion noted at time of procedure. Benign fibroadenoma favored.
== END ==
LOC: RADUSWWP 13:21
PROVIDERS: ATTEND Family Medicine
DX: D24.1 Benign neoplasm of right breast (principal)
CPT/HCPCS: 88305; 77065; 19083; A4648; J2001

== ENCOUNTER 2021-07-28 06:34 | Emergency (ER) | payer OTHER ==
[2021-07-28 07:13] VITALS: PULSE 70; RESP 18; TEMP 98.5
[2021-07-28] MEDS: ORPHENADRINE 30 MG/ML 2 ML VIAL IM STA (08:03)
[2021-07-28] MEDS: KETOROLAC 15 MG/ML 1 ML VIAL IM STA (08:03)
--- NOTE | 2021-07-28 08:07 | ED ---
General Adult HPI - General Chief complaint: Back Pain/Injury Stated complaint: Back and Leg Pain Time Seen by Provider: 07/28/21 07:17 Source: patient Mode of arrival: ambulatory Limitations: no limitations - History of Present Illness Initial comments: 40-year-old female presents to the emergency room for a chief of left lower back pain. Patient states she has a history of sciatica that was diagnosed by MRI a few months ago. Patient states that over the past couple days the pain is worsened. States she is supposed to have pain medication at home but hasn't had time to get to her doctor's office. Patient states it radiates down the left leg. Patient denies any bladder or bowel changes, saddle anesthesia, or weakness of the legs. Denies fevers or chills. Patient has no other complaints at this time including shortness of breath, chest pain, abdominal pain, nausea or vomiting, headache, or visual changes. - Related Data Home Medications Medication Instructions Recorded Confirmed Chlorthalidone [Hygroton] 25 mg PO BID 03/23/20 06/06/20 amLODIPine [Norvasc] 5 mg PO DAILY 03/30/20 06/06/20 buPROPion HCL [Wellbutrin SR] 150 mg PO BID 03/30/20 06/06/20 traZODone HCL 100 mg PO HS PRN 03/30/20 06/06/20 Previous Rx's Medication Instructions Recorded Ferrous Sulfate [Iron] 325 mg PO DAILY #30 tablet 03/30/20 predniSONE 50 mg PO DAILY #5 tablet 07/28/21 Allergies Allergy/AdvReac Type Severity Reaction Status Date / Time No Known Allergies Allergy Verified 07/28/21 07:13 Review of Systems ROS Statement: Those systems with pertinent positive or pertinent negative responses have been documented in the HPI. ROS Other: All systems not noted in ROS Statement are negative. Past Medical History Past Medical History: Hypertension Additional Past Medical History / Comment(s): sickle cell trait, anemia History of Any Multi-Drug Resistant Organisms: None Reported Past Surgical History: No Surgical Hx Reported Past Anesthesia/Blood Transfusion Reactions: No Reported Reaction Past Psychological History: No Psychological Hx Reported Smoking Status: Never smoker Past Alcohol Use History: Occasional Past Drug Use History: Marijuana General Exam Limitations: no limitations General appearance: alert, in no apparent distress Head exam: Present: atraumatic Eye exam: Present: normal appearance, PERRL, EOMI. Absent: scleral icterus, conjunctival injection ENT exam: Present: normal exam, mucous membranes moist Neck exam: Present: normal inspection, full ROM. Absent: tenderness Respiratory exam: Present: normal lung sounds bilaterally. Absent: respiratory distress, wheezes Cardiovascular Exam: Present: regular rate, normal rhythm, normal heart sounds GI/Abdominal exam: Present: soft, normal bowel sounds. Absent: distended, tenderness Course Vital Signs 07/28/21 07:10 Temperature 98.5 F Pulse Rate 70 Respiratory 18 Rate Blood Pressure 164/114 O2 Sat by Pulse 100 Oximetry Medical Decision Making - Medical Decision Making Vitals are stable. Patient mildly hypertensive likely secondary to pain. Patient was given Toradol and Norflex injections and did have improvement in symptoms. No red flag symptoms. Patient is stable for discharge home. We will try steroids outpatient. She was given referral to orthopedics if she is not seen a spine surgeon or specialists. She will also continue following up with her primary care doctor. She'll return here for any worsening symptoms. Disposition Clinical Impression: Sciatica Disposition: HOME SELF-CARE Condition: Good Instructions (If sedation given, give patient instructions): Acute Low Back Pain (ED) Additional Instructions: Continue to take her pain medication and muscle relaxers at home. Take steroid as directed. Follow up with primary care or orthopedics. Return to the emergency room for any worsening symptoms. Prescriptions: predniSONE 50 mg PO DAILY #5 tablet Is patient prescribed a controlled substance at d/c from ED?: No Referrals: Roderick Mccarthy MD [Primary Care Provider] - 1-2 days Flaquito Salas DO [Doctor of Osteopathic Medicine] - 1-2 days Time of Disposition: 08:29
[2021-07-28 08:46] VITALS: BP 174/105
== END 2021-07-28 08:46 | disposition home or self-care (01) ==
LOC: EC 06:34
DX: M54.42 Lumbago with sciatica, left side (principal); I10 Essential (primary) hypertension; F12.90 Cannabis use, unspecified, uncomplicated; Z79.52 Long term (current) use of systemic steroids; Z79.899 Other long term (current) drug therapy
CPT/HCPCS: 99283; 96372 ×2; J2360; J1885

== ENCOUNTER 2023-03-22 22:52 | Inpatient (IN) | payer OTHER ==
[2023-03-22 23:51] LABS: Anisocytosis Slight; Basophils % (A) 0 %; Eosinophils # (A) 0.3 k/uL (0-0.7); Eosinophils % (A) 2 %; HCT 30.5 % (34.0-46.0); HGB 8.9 gm/dL (11.4-16.0); Hypochromasia Marked; Lymphocytes # (A) 1.5 k/uL (1.0-4.8); Lymphocytes % (A) 9 %; MCH 20.3 pg (25.0-35.0); MCHC 29.1 g/dL (31.0-37.0); MCV 69.7 fL (80.0-100.0); Mean Platelet Volume 8.4; Microcytosis Marked; Monocytes # (A) 0.5 k/uL (0-1.0); Monocytes % (A) 3 %; Neutrophils # (A) 12.8 k/uL (1.3-7.7); Neutrophils % (A) 83 %; Platelet Count 248 k/uL (150-450); Poikilocytosis Slight; RBC 4.38 m/uL (3.80-5.40); RDW 19.1 % (11.5-15.5); Reticulocyte % 1.7 % (0.5-2.0); WBC 15.3 k/uL (3.8-10.6)
[2023-03-22 23:55] LABS: Partial Thromboplastin Time 22.9 sec (22.0-30.0); Prothrombin Time 10.2 sec (9.0-12.0)
[2023-03-22 23:58] LABS: ALT 27 U/L (4-34); AST 36 U/L (14-36); African American GFR (CKD) >90 (>60 ml/min/1.73 sqM); Alkaline Phosphatase 71 U/L (38-126); Anion Gap 12 mmol/L; Blood Urea Nitrogen 7 mg/dL (7-17); Calcium 9.4 mg/dL (8.4-10.2); Carbon Dioxide 18 mmol/L (22-30); Chloride 106 mmol/L (98-107); Glucose 123 mg/dL (74-99); Lipase 148 U/L (23-300); Magnesium 1.8 mg/dL (1.6-2.3); Non-African American GFR(CKD) >90 (>60 ml/min/1.73 sqM); Potassium 3.4 mmol/L (3.5-5.1); Sodium 136 mmol/L (137-145); Total Bilirubin 0.3 mg/dL (0.2-1.3); Total Protein 7.7 g/dL (6.3-8.2)
[2023-03-23] MEDS ORDERED: SODIUM CHLORIDE 0.9% 1,000 ML IV ONE (00:07)
[2023-03-23] MEDS ORDERED: MORPHINE SULFATE 4 MG/ML SYRINGE IVP STA ×2 (00:07→03:14)
--- NOTE | 2023-03-23 01:36 | ED ---
General Adult HPI - General Chief complaint: Chest Pain Stated complaint: Back pain Time Seen by Provider: 03/22/23 23:01 Source: patient Mode of arrival: ambulatory Limitations: no limitations - History of Present Illness Initial comments: This is a 42-year-old female with a past medical history including hypertension and sickle cell trait presents emergency department for back pain and lower leg pain similar to her sickle cell pain. The patient stated that she has not been hospitalized for sickle cell pain in over 2 years but stated that she does have a social problems specialist here on the side of [facility] if she is recently new. The patient stated that she also had some mild shortness of breath but denied any active current chest pain. The patient was otherwise resting in bed company. The patient denied any relief of pain from her [id number] medications that she took at home. The patient was otherwise denied any acute pain or distress. - Related Data Home Medications Medication Instructions Recorded Confirmed Chlorthalidone [Hygroton] 25 mg PO BID 03/23/20 06/06/20 amLODIPine [Norvasc] 5 mg PO DAILY 03/30/20 06/06/20 buPROPion HCL [Wellbutrin SR] 150 mg PO BID 03/30/20 06/06/20 traZODone HCL 100 mg PO HS PRN 03/30/20 06/06/20 Previous Rx's Medication Instructions Recorded Ferrous Sulfate [Iron] 325 mg PO DAILY #30 tablet 03/30/20 predniSONE 50 mg PO DAILY #5 tablet 07/28/21 Allergies Allergy/AdvReac Type Severity Reaction Status Date / Time No Known Allergies Allergy Verified 07/28/21 07:13 Review of Systems ROS Statement: Those systems with pertinent positive or pertinent negative responses have been documented in the HPI. ROS Other: All systems not noted in ROS Statement are negative. Past Medical History Past Medical History: Hypertension Additional Past Medical History / Comment(s): sickle cell trait, anemia History of Any Multi-Drug Resistant Organisms: None Reported Past Surgical History: No Surgical Hx Reported Past Anesthesia/Blood Transfusion Reactions: No Reported Reaction Past Psychological History: No Psychological Hx Reported Smoking Status: Never smoker Past Alcohol Use History: Occasional Past Drug Use History: Marijuana General Exam Limitations: no limitations General appearance: alert, in no apparent distress Head exam: Present: atraumatic, normocephalic, normal inspection Eye exam: Present: normal appearance, PERRL Pupils: Present: normal accommodation ENT exam: Present: normal exam, normal oropharynx, mucous membranes moist Neck exam: Present: normal inspection, full ROM Respiratory exam: Present: normal lung sounds bilaterally. Absent: respiratory distress Cardiovascular Exam: Present: normal rhythm, tachycardia, normal heart sounds GI/Abdominal exam: Present: soft, normal bowel sounds Extremities exam: Present: normal inspection, full ROM Back exam: Present: normal inspection, full ROM Neurological exam: Present: alert, oriented X3, CN II-XII intact Psychiatric exam: Present: normal affect, normal mood Skin exam: Present: warm, dry Course Vital Signs 03/22/23 03/22/23 03/22/23 22:54 22:57 23:30 Temperature 99.9 F H Pulse Rate 134 H 120 H Pulse Rate [ 129 H Environmental Protection Officer ] Respiratory 18 24 Rate Blood Pressure 157/107 160/103 O2 Sat by Pulse 100 99 Oximetry 03/23/23 03/23/23 00:00 01:00 Temperature Pulse Rate 120 H 107 H Pulse Rate [ Environmental Protection Officer ] Respiratory 20 20 Rate Blood Pressure 145/94 145/88 O2 Sat by Pulse 99 100 Oximetry EKG Findings - EKG Comments: EKG Findings:: An EKG was obtained and was interpreted by myself showing a rate of 129, MI interval 136, QR confucianism of 85 and QTC of 414. This EKG showed a sinus tachycardia with no ST segment elevation or depression noted. Medical Decision Making - Medical Decision Making Was pt. sent in by a medical professional or institution (, PA, HEALTH SAFETY INSTRUCTOR, urgent care, hospital, or snf...) When possible be specific @ -No Did you speak to anyone other than the patient for history (EMS, parent, family, police, friend...)? What history was obtained from this source @ -No Did you review nursing and triage notes (agree or disagree)? Why? @ -I reviewed and agree with nursing and triage notes Were old charts reviewed (outside hosp., previous admission, EMS record, old EKG, old radiological studies, urgent care reports/EKG's, snf records)? Report findings @ -No old charts were reviewed Differential Diagnosis (chest pain, altered mental status, abdominal pain women, abdominal pain men, vaginal bleeding, weakness, fever, dyspnea, syncope, headache, dizziness, GI bleed, back pain, seizure, CVA, palpatations, mental health)? @ -Sickle cell pain, acute chest syndrome, ACS EKG interpreted by me (3pts min.). @ -As above X-rays interpreted by me (1pt min.). @ -Chest x-ray was obtained and was interpreted by myself showing no acute process. CT interpreted by me (1pt min.). @ -None done U/S interpreted by me (1pt. min.). @ -None done What testing was considered but not performed or refused? (CT, X-rays, U/S, labs)? Why? @ -None What meds were considered but not given or refused? Why? @ -None Did you discuss the management of the patient with other professionals (professionals i.e. Dr., PA, HEALTH SAFETY INSTRUCTOR, lab, RT, psych nurse, manager social media, divorce lawyer, teacher, student officer, vocational case manager)? Give summary @ -Yes, many physician was contacted regarding patient admission. Was smoking cessation discussed for >3mins.? @ -No Was critical care preformed (if so, how long)? @ -No Were there social determinants of health that impacted care today? How? (Homelessness, low income, unemployed, alcoholism, drug addiction, transportation, low edu. Level, literacy, decrease access to med. care, care home, rehab)? @ -No Was there de-escalation of care discussed even if they declined (Discuss DNR or withdrawal of care, Hospice)? DNR status @ -No What co-morbidities impacted this encounter? (DM, HTN, Smoking, COPD, CAD, Cance r, CVA, ARF, Chemo, Hep., AIDS, mental health diagnosis, sleep apnea, morbid obesity)? @ -Sickle cell trait, hypertension Was patient admitted / discharged? Hospital course, mention meds given and route, prescriptions, significant lab abnormalities, going to OR and other pertinent info. @ -The patient was seen and evaluated emergency department. Physical exam, the patient was resting in bed in minimal distress secondary to sickle cell pain. Vital signs show tachycardia and admission. Laboratory workup was obtained and showed an elevated white blood cell count of 15.3 but a stable hemoglobin. The remainder of the patient's laboratory workup was within normal limits. The patient denied any active chest pain and with the negative chest x-ray was likely not acute chest syndrome at this time. The patient did receive 2 doses of pain medications but did not have any significant relief of her pain therefore the patient will be admitted for sickle cell pain treatment. The patient was a nursing of this and all her questions were answered. The patient was admitted in stable condition. Undiagnosed new problem with uncertain prognosis? @ -No Drug Therapy requiring intensive monitoring for toxicity (Heparin, Nitro, Insulin, Cardizem)? @ -No Were any procedures done? @ -No Diagnosis/symptom? @ -Sickle cell pain Acute, or Chronic, or Acute on Chronic? @ -Acute Uncomplicated (without systemic symptoms) or Complicated (systemic symptoms)? @ -Complicated Side effects of treatment? @ -No Exacerbation, Progression, or Severe Exacerbation? @ -No Poses a threat to life or bodily function? How? (Chest pain, USA, SD, pneumonia, PE, COPD, DKA, ARF, appy, cholecystitis, CVA, Diverticulitis, Homicidal, Suicidal, threat to staff... and all critical care pts) @ -No - Lab Data Result diagrams: 03/22/23 23:13 03/22/23 23:13 Lab Results 03/22/23 03/22/23 03/22/23 Range/Units 23:13 23:13 23:13 WBC 15.3 H (3.8-10.6) k/uL RBC 4.38 (3.80-5.40) m/uL Hgb 8.9 L (11.4-16.0) gm/dL Hct 30.5 L (34.0-46.0) % MCV 69.7 L (80.0-100.0) fL MCH 20.3 L (25.0-35.0) pg MCHC 29.1 L (31.0-37.0) g/dL RDW 19.1 H (11.5-15.5) % Plt Count 248 (150-450) k/uL MPV 8.4 Neutrophils % 83 % Lymphocytes % 9 % Monocytes % 3 % Eosinophils % 2 % Basophils % 0 % Neutrophils # 12.8 H (1.3-7.7) k/uL Lymphocytes # 1.5 (1.0-4.8) k/uL Monocytes # 0.5 (0-1.0) k/uL Eosinophils # 0.3 (0-0.7) k/uL Basophils # 0.0 (0-0.2) k/uL Hypochromasia Marked Poikilocytosis Slight Anisocytosis Slight Microcytosis Marked Retic Count 1.7 (0.5-2.0) % PT 10.2 (9.0-12.0) sec INR 1.0 (<1.2) APTT 22.9 (22.0-30.0) sec Sodium 136 L (137-145) mmol/L Potassium 3.4 L (3.5-5.1) mmol/L Chloride 106 (98-107) mmol/L Carbon Dioxide 18 L (22-30) mmol/L Anion Gap 12 mmol/L BUN 7 (7-17) mg/dL Creatinine 0.74 (0.52-1.04) mg/dL Est GFR (CKD-EPI)AfAm >90 (>60 ml/min/1.73 sqM) Est GFR (CKD-EPI)NonAf >90 (>60 ml/min/1.73 sqM) Glucose 123 H (74-99) mg/dL Calcium 9.4 (8.4-10.2) mg/dL Magnesium 1.8 (1.6-2.3) mg/dL Total Bilirubin 0.3 (0.2-1.3) mg/dL AST 36 (14-36) U/L ALT 27 (4-34) U/L Alkaline Phosphatase 71 (38-126) U/L Troponin I (0.000-0.034) ng/mL Total Protein 7.7 (6.3-8.2) g/dL Albumin 4.0 (3.5-5.0) g/dL Lipase 148 (23-300) U/L 03/22/23 Range/Units 23:13 WBC (3.8-10.6) k/uL RBC (3.80-5.40) m/uL Hgb (11.4-16.0) gm/dL Hct (34.0-46.0) % MCV (80.0-100.0) fL MCH (25.0-35.0) pg MCHC (31.0-37.0) g/dL RDW (11.5-15.5) % Plt Count (150-450) k/uL MPV Neutrophils % % Lymphocytes % % Monocytes % % Eosinophils % % Basophils % % Neutrophils # (1.3-7.7) k/uL Lymphocytes # (1.0-4.8) k/uL Monocytes # (0-1.0) k/uL Eosinophils # (0-0.7) k/uL Basophils # (0-0.2) k/uL Hypochromasia Poikilocytosis Anisocytosis Microcytosis Retic Count (0.5-2.0) % PT (9.0-12.0) sec INR (<1.2) APTT (22.0-30.0) sec Sodium (137-145) mmol/L Potassium (3.5-5.1) mmol/L Chloride (98-107) mmol/L Carbon Dioxide (22-30) mmol/L Anion Gap mmol/L BUN (7-17) mg/dL Creatinine (0.52-1.04) mg/dL Est GFR (CKD-EPI)AfAm (>60 ml/min/1.73 sqM) Est GFR (CKD-EPI)NonAf (>60 ml/min/1.73 sqM) Glucose (74-99) mg/dL Calcium (8.4-10.2) mg/dL Magnesium (1.6-2.3) mg/dL Total Bilirubin (0.2-1.3) mg/dL AST (14-36) U/L ALT (4-34) U/L Alkaline Phosphatase (38-126) U/L Troponin I <0.012 (0.000-0.034) ng/mL Total Protein (6.3-8.2) g/dL Albumin (3.5-5.0) g/dL Lipase (23-300) U/L Disposition Clinical Impression: Sickle cell pain crisis Disposition: ADMITTED IP TO THIS HOSP Condition: Stable Is patient prescribed a controlled substance at d/c from ED?: No Referrals: Roderick Mccarthy MD [Primary Care Provider] - 1-2 days Time of Disposition: 04:00 Decision to Admit Reason: Admit from EC Decision Date: 03/23/23 Decision Time: 04:00
--- NOTE | 2023-03-23 03:30 | XR ---
EXAMINATION TYPE: XR chest 2V DATE OF EXAM: 03/23/2023 3:27 AM COMPARISON: Chest radiographs from 10/08/2018 TECHNIQUE: XR chest 2V Frontal and lateral views of the chest. CLINICAL INDICATION:Female, 42 years old with history of CP; FINDINGS: Lungs/Pleura: There is no evidence of pleural effusion, focal consolidation, or pneumothorax. Pulmonary vascularity: Unremarkable. Heart/mediastinum: Cardiomediastinal silhouette is unremarkable. Musculoskeletal: No acute osseous pathology. IMPRESSION: No acute cardiopulmonary disease/process.
[2023-03-23] MEDS ORDERED: NALOXONE 0.4 MG/ML 1 ML VIAL IV PRN (04:55)
[2023-03-23] MEDS: MORPHINE SULFATE 4 MG/ML SYRINGE IV PRN (09:54)
[2023-03-23] MEDS ORDERED: ACETAMINOPHEN TAB 325 MG TAB PO PRN (10:02)
[2023-03-23] MEDS ORDERED: ONDANSETRON 4 MG/2 ML VIAL IVP PRN (10:02)
[2023-03-23] MEDS: FOLIC ACID 1 MG TAB PO SCH (10:27)
[2023-03-23] MEDS: SODIUM CHLORIDE 0.9% 1,000 ML IV SCH ×2 (10:28→21:45)
[2023-03-23] MEDS ORDERED: ALBUTEROL NEBULIZED 2.5 MG/3 ML INHALATION PRN (14:26)
[2023-03-23] MEDS ORDERED: POTASSIUM CHLORIDE ER 20 MEQ TAB.ER PO STA (14:27)
[2023-03-23] MEDS ORDERED: hydrALAZINE HCL 20 MG/ML 1 ML VIAL IVP PRN (14:29)
--- NOTE | 2023-03-23 14:29 | P.HPIM ---
History of Present Illness H&P Date: 03/23/23 * 42-year-old lady with past medical history of hypertension, sickle cell anemia presented to the emergency department with complaints of back pain, leg pain. Patient states her symptoms are typical to sickle cell crisis. Patient denies shortness of breath or chest pain * Workup initiated in ER including a CBC which showed white cell count of 15.3. Hemoglobin of 8.9, platelet count of 248 PT/INR within normal limits. * Basic metabolic panel showed sodium of 136 potassium of 3.4 magnesium of 1.8 * Patient to be admitted and treated for sickle cell pain crisis REVIEW OF SYSTEMS: CONSTITUTIONAL: Generalized pain, malaise, myalgia HEENT: No recent visual problems or hearing problems. Denied any sore throat. CARDIOVASCULAR: No chest pain, orthopnea, PND, no palpitations, no syncope. PULMONARY: No shortness of breath, no cough, no hemoptysis. GASTROINTESTINAL: No diarrhea, no nausea, no vomiting, no abdominal pain. NEUROLOGICAL: No headaches, no weakness, no numbness. HEMATOLOGICAL: Denies any bleeding or petechiae. GENITOURINARY: Denies any burning micturition, frequency, or urgency. MUSCULOSKELETAL/RHEUMATOLOGICAL: Denies any joint pain, swelling, or any muscle pain. ENDOCRINE: Denies any polyuria or polydipsia. The rest of the 14-point review of systems is negative. PHYSICAL EXAMINATION: GENERAL: The patient is alert and oriented x3, not in any acute distress. Well developed, well nourished. HEENT: Pupils are round and equally reacting to light. EOMI. No scleral icterus. No conjunctival pallor. Normocephalic, atraumatic. No pharyngeal erythema. No thyromegaly. CARDIOVASCULAR: S1 and S2 present. No murmurs, rubs, or gallops. PULMONARY: Chest is clear to auscultation, no wheezing or crackles. ABDOMEN: Soft, nontender, nondistended, normoactive bowel sounds. No palpable organomegaly. MUSCULOSKELETAL: No joint swelling or deformity. EXTREMITIES: No cyanosis, clubbing, or pedal edema. NEUROLOGICAL: Gross neurological examination did not reveal any focal deficits. SKIN: No rashes. Past Medical History Past Medical History: Hypertension Additional Past Medical History / Comment(s): sickle cell trait, anemia History of Any Multi-Drug Resistant Organisms: None Reported Past Surgical History: No Surgical Hx Reported Past Anesthesia/Blood Transfusion Reactions: No Reported Reaction Past Psychological History: No Psychological Hx Reported Smoking Status: Never smoker Past Alcohol Use History: Occasional Past Drug Use History: Marijuana Additional Drug Use History / Comment(s): OCCASIONAL ALCOHOL AND MARIJUANA Medications and Allergies Home Medications Medication Instructions Recorded Confirmed Type Chlorthalidone [Hygroton] 25 mg PO DAILY 03/23/20 03/23/23 History Albuterol Nebulized [Ventolin 2.5 mg INHALATION RT-BID PRN 03/23/23 03/23/23 History Nebulized] Budesonide/Formoterol Fumarate 2 puff INHALATION RT-BID 03/23/23 03/23/23 History [Symbicort 80-4.5 Mcg Inhaler] Clonidine(Unknown Dose) 1 tab PO DIRECTED 03/23/23 03/23/23 History Cyclobenzaprine [Flexeril] 10 mg PO DAILY PRN 03/23/23 03/23/23 History Ferrous Sulfate [Iron] 325 mg PO TID 03/23/23 03/23/23 History Naproxen [EC-Naprosyn] 500 mg PO BID PRN 03/23/23 03/23/23 History amLODIPine [Norvasc] 10 mg PO DAILY 03/23/23 03/23/23 History lisinopriL 40 mg PO DAILY 03/23/23 03/23/23 History Allergies Allergy/AdvReac Type Severity Reaction Status Date / Time No Known Allergies Allergy Verified 03/23/23 11:34 Physical Exam Vitals: Vital Signs Temp Pulse Pulse Resp BP BP Pulse Ox 03/23/23 07:13 98.1 F 82 18 126/81 100 03/23/23 05:34 99.5 F 96 18 141/97 98 03/23/23 03:00 88 18 147/91 97 03/23/23 02:00 86 22 125/97 100 03/23/23 01:00 107 H 20 145/88 100 03/23/23 00:00 120 H 20 145/94 99 03/22/23 23:30 120 H 24 160/103 99 03/22/23 22:57 129 H 03/22/23 22:54 99.9 F H 134 H 18 157/107 100 Intake and Output 08/18/23 08/19/23 08/19/23 22:59 06:59 14:59 Other: Weight 83.915 kg 83.915 kg Results CBC & Chem 7: 03/22/23 23:13 03/22/23 23:13 Labs: Abnormal Lab Results - Last 24 Hours (Table) 03/22/23 03/22/23 Range/Units 23:13 23:13 WBC 15.3 H (3.8-10.6) k/uL Hgb 8.9 L (11.4-16.0) gm/dL Hct 30.5 L (34.0-46.0) % MCV 69.7 L (80.0-100.0) fL MCH 20.3 L (25.0-35.0) pg MCHC 29.1 L (31.0-37.0) g/dL RDW 19.1 H (11.5-15.5) % Neutrophils # 12.8 H (1.3-7.7) k/uL Sodium 136 L (137-145) mmol/L Potassium 3.4 L (3.5-5.1) mmol/L Carbon Dioxide 18 L (22-30) mmol/L Glucose 123 H (74-99) mg/dL Thrombosis Risk Factor Assmnt - Choose All That Apply Any of the Below Risk Factors Present?: Yes Other congenital or acquired thrombophilia - If yes, enter type in comment: Yes (sickle cell disease) Assessment and Plan Assessment: Assessment and plan * Sickle cell pain crisis * Chronic anemia, iron deficiency * Hypertension * Electrolyte abnormality hypokalemia and hypomagnesemia * In regards to sickle cell pain crisis, continue patient on IV fluid, continue with pain control. Follow-up reticulocyte count ordered * In regards to anemia continue patient on ferrous sulfate continue to monitor H&H * In regards to hypertension continue patient on amlodipine, chlorthalidone, lisinopril * In regards to electrolyte abnormality potassium and magnesium replaced * CODE STATUS is full code
[2023-03-23] MEDS: CHLORTHALIDONE 25 MG TAB PO SCH (14:46)
[2023-03-23] MEDS: lisinopriL 20 MG TAB PO SCH (14:46)
[2023-03-23] MEDS: amLODIPine 10 MG TAB PO SCH (14:46)
[2023-03-23] MEDS: MAGNESIUM SULFATE-D5W PMX 1 GM in DEXTROSE/WATER 1 100ML.BAG IVPB SCH ×4 (14:46→18:00)
[2023-03-23] MEDS: HYDROcodone/APAP 5-325MG 1 EACH TAB PO PRN (14:46)
[2023-03-23] MEDS: FERROUS SULFATE 325 MG TAB PO SCH ×2 (16:37→21:46)
[2023-03-23 21:19] LABS: Reticulocyte % 1.2 % (0.5-2.0)
[2023-03-23] MEDS: SYMBICORT 80-4.5 MCG INHALER INHALATION SCH (21:24)
[2023-03-23] MEDS: ALBUTEROL NEBULIZED 2.5 MG/3 ML INHALATION SCH (21:24)
[2023-03-24] MEDS: MORPHINE SULFATE 4 MG/ML SYRINGE IV PRN ×2 (02:55→22:28)
[2023-03-24] MEDS: HYDROcodone/APAP 5-325MG 1 EACH TAB PO PRN ×2 (05:18→08:43)
[2023-03-24] MEDS: SYMBICORT 80-4.5 MCG INHALER INHALATION SCH ×2 (07:38→21:10)
[2023-03-24] MEDS: ALBUTEROL NEBULIZED 2.5 MG/3 ML INHALATION SCH ×2 (07:38→21:11)
[2023-03-24 07:59] LABS: Anisocytosis Slight; Basophils % (A) 0 %; Eosinophils # (A) 0.5 k/uL (0-0.7); Eosinophils % (A) 6 %; HCT 28.4 % (34.0-46.0); HGB 8.4 gm/dL (11.4-16.0); Hypochromasia Marked; Lymphocytes # (A) 1.7 k/uL (1.0-4.8); Lymphocytes % (A) 22 %; MCH 20.5 pg (25.0-35.0); MCHC 29.7 g/dL (31.0-37.0); Mean Platelet Volume 9.3; Microcytosis Marked; Monocytes # (A) 0.6 k/uL (0-1.0); Monocytes % (A) 8 %; Neutrophils # (A) 4.8 k/uL (1.3-7.7); Neutrophils % (A) 60 %; Platelet Count 255 k/uL (150-450); Poikilocytosis Slight; RBC 4.11 m/uL (3.80-5.40); WBC 7.9 k/uL (3.8-10.6)
[2023-03-24 08:27] LABS: African American GFR (CKD) >90 (>60 ml/min/1.73 sqM); Blood Urea Nitrogen 5 mg/dL (7-17); Carbon Dioxide 22 mmol/L (22-30); Glucose 105 mg/dL (74-99); LDH 223 U/L (120-246); Non-African American GFR(CKD) >90 (>60 ml/min/1.73 sqM); Potassium 3.9 mmol/L (3.5-5.1); Sodium 134 mmol/L (137-145)
[2023-03-24] MEDS: lisinopriL 20 MG TAB PO SCH (08:43)
[2023-03-24] MEDS: SODIUM CHLORIDE 0.9% 1,000 ML IV SCH ×2 (08:43→16:24)
[2023-03-24] MEDS: FOLIC ACID 1 MG TAB PO SCH (08:43)
[2023-03-24] MEDS: FERROUS SULFATE 325 MG TAB PO SCH ×3 (08:43→22:25)
[2023-03-24] MEDS: amLODIPine 10 MG TAB PO SCH (08:43)
[2023-03-24] MEDS: CHLORTHALIDONE 25 MG TAB PO SCH (08:43)
[2023-03-24 10:00] LABS: Anion Gap 9 mmol/L; Chloride 103 mmol/L (98-107)
[2023-03-24] MEDS: ENOXAPARIN 40 MG/0.4 ML SYRINGE SQ SCH (11:54)
--- NOTE | 2023-03-24 13:04 | P.PN ---
Subjective Progress Note Date: 03/24/23 * 42-year-old lady with past medical history of hypertension, sickle cell anemia presented to the emergency department with complaints of back pain, leg pain. Patient states her symptoms are typical to sickle cell crisis. Patient denies shortness of breath or chest pain * Workup initiated in ER including a CBC which showed white cell count of 15.3. Hemoglobin of 8.9, platelet count of 248 PT/INR within normal limits. * Basic metabolic panel showed sodium of 136 potassium of 3.4 magnesium of 1.8 * Patient to be admitted and treated for sickle cell pain crisis * 03/24/2023 : Patient continues to have generalized pain, consultation obtained from hematology. Continue patient with pain control and fluid resuscitation Objective - Vital Signs Vital signs: Vital Signs Temp 97.7 F 03/24/23 07:17 Pulse 92 03/24/23 07:53 Resp 18 03/24/23 07:17 BP 129/89 03/24/23 07:17 Pulse Ox 99 03/24/23 07:17 FiO2 Intake & Output 03/23/23 03/24/23 03/24/23 18:59 06:59 18:59 Intake Total 1080 Balance 1080 Intake: Oral 1080 Other: Voiding Method Toilet Toilet # Voids 3 2 - Exam PHYSICAL EXAMINATION: GENERAL: The patient is alert and oriented x3, not in any acute distress. Well developed, well nourished. HEENT: Pupils are round and equally reacting to light. EOMI. No scleral icterus. No conjunctival pallor. Normocephalic, atraumatic. No pharyngeal erythema. No thyromegaly. CARDIOVASCULAR: S1 and S2 present. No murmurs, rubs, or gallops. PULMONARY: Chest is clear to auscultation, no wheezing or crackles. ABDOMEN: Soft, nontender, nondistended, normoactive bowel sounds. No palpable organomegaly. MUSCULOSKELETAL: No joint swelling or deformity. EXTREMITIES: No cyanosis, clubbing, or pedal edema. NEUROLOGICAL: Gross neurological examination did not reveal any focal deficits. SKIN: No rashes. - Labs CBC & Chem 7: 03/24/23 06:14 03/24/23 06:14 Labs: Abnormal Lab Results - Last 24 Hours (Table) 03/24/23 03/24/23 Range/Units 06:14 06:14 Hgb 8.4 L (11.4-16.0) gm/dL Hct 28.4 L (34.0-46.0) % MCV 69.0 L (80.0-100.0) fL MCH 20.5 L (25.0-35.0) pg MCHC 29.7 L (31.0-37.0) g/dL RDW 19.0 H (11.5-15.5) % Sodium 134 L (137-145) mmol/L BUN 5 L (7-17) mg/dL Glucose 105 H (74-99) mg/dL Assessment and Plan Assessment: Assessment and plan * Sickle cell pain crisis * Chronic anemia, iron deficiency * Hypertension * Electrolyte abnormality hypokalemia and hypomagnesemia * In regards to sickle cell pain crisis, continue patient on IV fluid, continue with pain control. Follow-up reticulocyte count followed up * Hematology oncology consulted will need outpatient follow-up as well * In regards to anemia continue patient on ferrous sulfate continue to monitor H&H * In regards to hypertension continue patient on amlodipine, chlorthalidone, lisinopril * In regards to electrolyte abnormality potassium and magnesium replaced * . Lovenox for DVT prophylaxis * CODE STATUS is full code
[2023-03-24 13:39] LABS: Poikilocytosis (M) Present; Target Cells Present
--- NOTE | 2023-03-24 15:06 | P.CONS ---
History of Present Illness - Reason for Consult Consult date: 03/24/23 generalized pain, sickle cell trait - History of Present Illness the patient is a 42-year-old -[place] female, who came to the emergency room with complains of muscle skeletal pain, initially starting in the back and legs, and then migrating to other areas including back, flanks and neck. Patient also complained of chest wall pain and tightness off and on. Symptoms started about 4-5 days ago. The patient has a known history of sciatica and is on muscle relaxants at home. She states that these are not ef fective, leading her to come into the hospital. The patient gives a history of sickle cell trait. She states that she was tested around age 23, when her daughter was found to have overt sickle cell disease. According to her current symptoms feeling like a sickle cell pain crisis. She states that the previous such episode was several years ago. She has not seen a senior windows systems administrator in many years. She does have somewhat chronic anemia, based on labs reviewed and the EMR going back in the past 3-4 years. it appears that this is due to iron deficiency, from heavy menstrual losses. Patient is on oral iron outpatient. She denied any recent history of any acute illness or infection Review of Systems Constitutional: Reports fatigue Eyes: denies blurred vision, denies pain Ears: deny: decreased hearing, ear discharge, earache, tinnitus Ears, nose, mouth and throat: Denies headache, Denies sore throat Cardiovascular: Reports chest pain Respiratory: Reports pain Gastrointestinal: Denies abdominal pain, Denies diarrhea, Denies nausea, Denies vomiting Genitourinary: Denies dysuria, Denies hematuria Menstruation: Reports period heavy Musculoskeletal: Reports as per HPI, Reports myalgias Integumentary: Denies pruritus, Denies rash Neurological: Denies numbness, Denies weakness Psychiatric: Denies anxiety, Denies depression Endocrine: Denies fatigue, Denies weight change Hematologic/Lymphatic: Reports as per HPI Past Medical History Past Medical History: Hypertension Additional Past Medical History / Comment(s): sickle cell trait, anemia History of Any Multi-Drug Resistant Organisms: None Reported Past Surgical History: No Surgical Hx Reported Past Anesthesia/Blood Transfusion Reactions: No Reported Reaction Past Psychological History: No Psychological Hx Reported Smoking Status: Never smoker Past Alcohol Use History: Occasional Past Drug Use History: Marijuana Additional Drug Use History / Comment(s): OCCASIONAL ALCOHOL AND MARIJUANA Medications and Allergies Home Medications Medication Instructions Recorded Confirmed Type Chlorthalidone [Hygroton] 25 mg PO DAILY 03/23/20 03/23/23 History Albuterol Nebulized [Ventolin 2.5 mg INHALATION RT-BID PRN 03/23/23 03/23/23 History Nebulized] Budesonide/Formoterol Fumarate 2 puff INHALATION RT-BID 03/23/23 03/23/23 History [Symbicort 80-4.5 Mcg Inhaler] Clonidine(Unknown Dose) 1 tab PO DIRECTED 03/23/23 03/23/23 History Cyclobenzaprine [Flexeril] 10 mg PO DAILY PRN 03/23/23 03/23/23 History Ferrous Sulfate [Iron] 325 mg PO TID 03/23/23 03/23/23 History Naproxen [EC-Naprosyn] 500 mg PO BID PRN 03/23/23 03/23/23 History amLODIPine [Norvasc] 10 mg PO DAILY 03/23/23 03/23/23 History lisinopriL 40 mg PO DAILY 03/23/23 03/23/23 History Allergies Allergy/AdvReac Type Severity Reaction Status Date / Time No Known Allergies Allergy Verified 03/23/23 11:34 Physical Exam Vitals: Vital Signs Temp Pulse Pulse Resp BP Pulse Ox 03/24/23 07:53 92 03/24/23 07:39 90 03/24/23 07:17 97.7 F 88 18 129/89 99 03/24/23 01:49 98.2 F 92 18 136/88 100 03/23/23 21:33 90 03/23/23 21:25 90 03/23/23 19:34 97.9 F 90 20 149/99 100 03/23/23 16:39 130/81 Intake and Output 03/23/23 03/24/23 03/24/23 22:59 06:59 14:59 Intake Total 1080 Balance 1080 Intake: Oral 1080 Other: Voiding Method Toilet Toilet # Voids 3 2 - Constitutional General appearance: no acute distress - EENT Eyes: EOMI, PERRLA ENT: hearing grossly normal, normal oropharynx - Neck Neck: no lymphadenopathy Thyroid: bilateral: normal size - Respiratory Respiratory: bilateral: CTA - Cardiovascular Rhythm: regular Heart sounds: normal: S1, S2 - Gastrointestinal General gastrointestinal: normal bowel sounds, soft - Integumentary Integumentary: normal - Neurologic Neurologic: CNII-XII intact - Musculoskeletal Musculoskeletal: strength equal bilaterally - Psychiatric Psychiatric: A&O x's 3 Results CBC & Chem 7: 03/24/23 06:14 03/24/23 06:14 Labs: Abnormal Lab Results - Last 24 Hours (Table) 03/24/23 03/24/23 Range/Units 06:14 06:14 Hgb 8.4 L (11.4-16.0) gm/dL Hct 28.4 L (34.0-46.0) % MCV 69.0 L (80.0-100.0) fL MCH 20.5 L (25.0-35.0) pg MCHC 29.7 L (31.0-37.0) g/dL RDW 19.0 H (11.5-15.5) % Sodium 134 L (137-145) mmol/L BUN 5 L (7-17) mg/dL Glucose 105 H (74-99) mg/dL Chest x-ray: report reviewed Assessment and Plan (1) Sickle cell pain crisis Narrative/Plan: the patient is presenting with a new onset of generalized muscle and bone pain, affecting multiple areas of the body as described in the HPI. She has a history of sickle cell trait. Her CBC shows a hemoglobin of 8.6, though other labs are not consistent with any significant degree of hemolysis. The patient states that her symptoms are consistent with pain crisis that she had previously, but this was many years ago. She has not seen a senior windows systems administrator for several years. - We discussed while it is more common for while it is much less common for pain crisis to occur without hemolysis, and in patients with sickle cell trait only, they can occur, though usually much less frequently than in a patient with over disease. the patient does not give history of any obvious precipitating factors such as significant dehydration, infection or other conditions causing hypoxia. - Continue IV fluids, as well as pain medication. Patient has been placed on IV morphine, and [place] per IM - Continue IV hydration - The patient will also be placed on oxygen, even though her oxygen saturations are normal. This will be continued even with normal saturations, with further increase in oxygen flow rate if needed. -Check labs including hemolysis markers and Hgb EP Current Visit: Yes Status: Acute Code(s): D57.00 - HB-SS DISEASE WITH CRISIS, UNSPECIFIED SNOMED Code(s): 157451046 (2) Anemia Narrative/Plan: this appears to be more likely due to iron deficiency from menstrual losses, rather than hemolysis. As noted above hemolysis markers will be ordered. I will also check for deficiency states. The patient is already on oral iron. Current Visit: Yes Status: Acute Code(s): D64.9 - ANEMIA, UNSPECIFIED SNOMED Code(s): 150646162
[2023-03-24] MEDS: CYCLOBENZAPRINE 10 MG TAB PO PRN (16:26)
[2023-03-24 23:43] LABS: Ferritin 22.7 ng/mL (10.0-291.0)
[2023-03-25] MEDS: SODIUM CHLORIDE 0.9% 1,000 ML IV SCH ×3 (03:16→23:44)
[2023-03-25] MEDS: HYDROcodone/APAP 5-325MG 1 EACH TAB PO PRN (03:17)
[2023-03-25] MEDS: SYMBICORT 80-4.5 MCG INHALER INHALATION SCH ×2 (07:51→21:02)
[2023-03-25] MEDS: ALBUTEROL NEBULIZED 2.5 MG/3 ML INHALATION SCH ×2 (07:51→21:02)
[2023-03-25] MEDS: lisinopriL 20 MG TAB PO SCH (08:20)
[2023-03-25] MEDS: amLODIPine 10 MG TAB PO SCH (08:21)
[2023-03-25] MEDS: FERROUS SULFATE 325 MG TAB PO SCH ×3 (08:22→19:58)
[2023-03-25] MEDS: FOLIC ACID 1 MG TAB PO SCH (08:22)
[2023-03-25] MEDS: CHLORTHALIDONE 25 MG TAB PO SCH (08:22)
[2023-03-25] MEDS: MORPHINE SULFATE 4 MG/ML SYRINGE IV PRN ×2 (08:24→17:25)
[2023-03-25] MEDS: ENOXAPARIN 40 MG/0.4 ML SYRINGE SQ SCH (08:24)
[2023-03-25 08:40] LABS: Reticulocyte % 0.76 % (0.10-1.80)
[2023-03-25 08:51] LABS: BUN/Creat Ratio 14.67 Ratio (12.00-20.00); Blood Urea Nitrogen 8.8 mg/dL (9.0-27.0); Calcium 9.6 mg/dL (8.7-10.3); Carbon Dioxide 24.3 mmol/L (21.6-31.8); Chloride 104 mmol/L (96-109); Glucose 103 mg/dL (70-110); Potassium 4.1 mmol/L (3.5-5.5); Sodium 138 mmol/L (135-145)
[2023-03-25 09:31] LABS: HCT 28.4 % (37.2-46.3); HGB 8.2 d/dL (12.0-15.0); MCH 19.2 pg (27.0-32.0); MCHC 28.9 d/dL (32.0-37.0); MCV 66.5 FL (80.0-97.0); Mean Platelet Volume 10.8 FL (9.5-12.2); NRBC Per 100 WBC 0 X 10*3/uL (0.00-0.01); Platelet Count 307 X 10*3/uL (140-440); RBC 4.27 X 10*6/uL (4.10-5.20); RDW 19.8 % (11.5-14.5); WBC 7.07 X 10*3/uL (4.50-10.00)
[2023-03-25] MEDS ORDERED: SODIUM FERRIC GLUCONAT-SUCROSE 125 MG in SODIUM CHLORIDE 0.9% 100 ML IVPB ONE (11:00)
--- NOTE | 2023-03-25 14:05 | P.PN ---
Subjective Progress Note Date: 03/25/23 Principal diagnosis: sickle cell trait pain crisis In f/u today pt is resting, pain is managed on current analgesics, no current bleeding to report Objective - Vital Signs Vital signs: Vital Signs Temp 97.6 F 03/25/23 07:24 Pulse 86 03/25/23 08:09 Resp 15 03/25/23 07:24 BP 109/71 03/25/23 07:24 Pulse Ox 100 03/25/23 07:51 FiO2 Intake & Output 03/24/23 03/25/23 03/25/23 18:59 06:59 18:59 Intake Total 1080 Balance 1080 Intake: Oral 1080 Other: Voiding Method Toilet Toilet # Voids 3 2 - Constitutional General appearance: Present: average body habitus, cooperative, no acute distress - EENT Eyes: Present: anicteric sclerae, EOMI ENT: Present: hearing grossly normal - Respiratory Details: resp even and unlabored at rest - Cardiovascular Details: skin warm and dry to the touch - Neurologic Neurologic: Present: CNII-XII intact (grossly) - Musculoskeletal Musculoskeletal: Present: strength equal bilaterally - Psychiatric Psychiatric: Present: A&O x's 3, appropriate affect, intact judgment & insight - Labs CBC & Chem 7: 03/25/23 04:40 03/25/23 04:40 Labs: Abnormal Lab Results - Last 24 Hours (Table) 03/24/23 03/24/23 03/25/23 Range/Units 16:26 16:26 04:40 Hgb 8.2 L (12.0-15.0) d/dL Hct 28.4 L (37.2-46.3) % MCV 66.5 L (80.0-97.0) FL MCH 19.2 L (27.0-32.0) pg MCHC 28.9 L (32.0-37.0) d/dL RDW 19.8 H (11.5-14.5) % Haptoglobin 352.0 H (31.2-198.0) mg/dL BUN (9.0-27.0) mg/dL Iron 24 L (50-170) UG/DL TIBC 480 H (228-460) UG/DL % Saturation 5.00 L (12.00-45.00) 03/25/23 Range/Units 04:40 Hgb (12.0-15.0) d/dL Hct (37.2-46.3) % MCV (80.0-97.0) FL MCH (27.0-32.0) pg MCHC (32.0-37.0) d/dL RDW (11.5-14.5) % Haptoglobin (31.2-198.0) mg/dL BUN 8.8 L (9.0-27.0) mg/dL Iron (50-170) UG/DL TIBC (228-460) UG/DL % Saturation (12.00-45.00) Assessment and Plan (1) Anemia Current Visit: Yes Status: Acute Priority: High Code(s): D64.9 - ANEMIA, UNSPECIFIED SNOMED Code(s): 992204136 (2) Sickle cell pain crisis Current Visit: Yes Status: Acute Priority: High Code(s): D57.00 - HB-SS DISEASE WITH CRISIS, UNSPECIFIED SNOMED Code(s): 112638333 Plan: Microcytic, hypochromic Anemia -Labs showing iron deficiency with a saturation 5%, ferritin 22.7 -Bilirubin within normal limits. LDH within normal limits With an elevated haptoglobin, no evidence of hemolysis at this time. -Literature reviewed anemia, sickle cell crisis in sickle cell trait, and administration of iron. With low saturation and ferritin administration of iron is a reasonable treatment option to improve Hgb levels and oxygenation. Large doses of iron are not recommended. The goal is not to have a normal hemoglobin in this population, just to improve Hgb levels and try to achieve better ox ygenation. -1 dose of parenteral iron ordered -Pt cont on oral iron at this time -Cont supportive care-fluids, O2, pain meds Time with Patient: Greater than 30
[2023-03-25] MEDS: CYCLOBENZAPRINE 10 MG TAB PO PRN (18:42)
[2023-03-26] MEDS: MORPHINE SULFATE 4 MG/ML SYRINGE IV PRN ×2 (06:04→11:06)
--- NOTE | 2023-03-26 06:15 | PN ---
PROGRESS NOTE CHIEF COMPLAINT: Generalized pain and supposed sickle cell crisis. HISTORY OF PRESENT ILLNESS: This lady continues to complain of generalized pain. She is somewhat lethargic. She is not a good historian. Apparently, she has sickle cell trait and it would be unusual for her to have this degree of crisis. In addition, the pain is generalized, which does not make a lot of sense. PHYSICAL EXAMINATION: CHEST: Clear. CARDIAC: Normal. ABDOMEN: Soft, nontender. IMPRESSION: 1. Generalized abdominal pain possibly due to sickling. 2. Sickle cell trait. PLAN: Continue with analgesics. MMODL / IJN: [id number] /
[2023-03-26] MEDS: HYDROcodone/APAP 5-325MG 1 EACH TAB PO PRN (07:41)
[2023-03-26] MEDS: ALBUTEROL NEBULIZED 2.5 MG/3 ML INHALATION SCH (08:51)
[2023-03-26] MEDS: SYMBICORT 80-4.5 MCG INHALER INHALATION SCH (08:51)
[2023-03-26] MEDS: FOLIC ACID 1 MG TAB PO SCH (09:51)
[2023-03-26] MEDS: CHLORTHALIDONE 25 MG TAB PO SCH (09:51)
[2023-03-26] MEDS: amLODIPine 10 MG TAB PO SCH (09:52)
[2023-03-26] MEDS: lisinopriL 20 MG TAB PO SCH (09:52)
[2023-03-26] MEDS: FERROUS SULFATE 325 MG TAB PO SCH ×2 (09:52→16:31)
[2023-03-26] MEDS: ENOXAPARIN 40 MG/0.4 ML SYRINGE SQ SCH (09:52)
[2023-03-26] MEDS: SODIUM CHLORIDE 0.9% 1,000 ML IV SCH (10:09)
[2023-03-26 14:52] VITALS: BP 112/71; PULSE 92; RESP 15; TEMP 98.2
--- NOTE | 2023-03-27 20:47 | DS ---
DISCHARGE SUMMARY CHIEF COMPLAINT: Generalized pain. HISTORY OF PRESENT ILLNESS AND PHYSICAL EXAMINATION: Details of this lady's history and physical can be found in the initial workup. LABORATORY STUDIES: While she was in the hospital, she had laboratory studies, details of which can be found in the laboratory section of her chart. COURSE IN THE HOSPITAL: After admission, she was placed on bedrest and started on intravenous fluids and analgesics. Laboratory studies remained normal. She was seen by Hematology. She was doing well. It was felt she could be discharged on the even though she did not want to go home. She will be followed up in the office. Her presentation is unusual, in that, she only had sickle cell trait and was complaining of pain "all over her body". FINAL DIAGNOSES: 1. Generalized body pain. 2. Sickle cell trait. 3. Sickle cell crisis. OPERATIONS: None. CONSULTATIONS: Hematology. CONDITION: She is improved. MMODL / LUCAS: [id number] /
[2023-03-28 16:18] LABS: Methylmalonic Acid 0.11 umol/L (<0.40)
== END 2023-03-26 17:03 | disposition home or self-care (01) | DRG 662 ==
LOC: EC 22:52 → 4SSUR 03-23 04:55
PROVIDERS: ADMIT Family Medicine; ATTEND Family Medicine
DX: D57.00 Hb-SS disease with crisis, unspecified (principal); E83.42 Hypomagnesemia; E87.6 Hypokalemia; I10 Essential (primary) hypertension; D50.9 Iron deficiency anemia, unspecified; N93.8 Other specified abnormal uterine and vaginal bleeding; Z79.51 Long term (current) use of inhaled steroids; Z79.899 Other long term (current) drug therapy; Z28.310 Unvaccinated for COVID-19
CPT/HCPCS: 36415; 71046; 80048; 80053; 82607; 82728; 82747; 83010; 83540; 83550; 83615; 83690; 83735; 83921; 84484; 85025; 85027; 85045; 85610; 85730; 93005; 94640; 94760; 96361; 96374; 96376; 99285

== ENCOUNTER 2023-11-20 10:10 | Emergency (ER) | payer OTHER ==
[2023-11-20 10:34] VITALS: BP 164/96; PULSE 62; RESP 19; TEMP 98.5
--- NOTE | 2023-11-20 10:55 | ED ---
URI HPI - General Chief Complaint: Upper Respiratory Infection Stated Complaint: Cough Time Seen by Provider: 11/20/23 10:54 Source: patient, RN notes reviewed Mode of arrival: ambulatory Limitations: no limitations - History of Present Illness Initial Comments: 43-year-old female presented to the ER with chief complaint of myalgias and cough. She states she was recently exposed to COVID. She also endorses congestion and recent diarrhea. States her symptoms have been going on for the past 3 to 4 days. She denies any headache, chest pain, shortness of breath, abdominal pain or peripheral edema. Denies smoking. - Related Data Home Medications Medication Instructions Recorded Confirmed Chlorthalidone [Hygroton] 25 mg PO DAILY 03/23/20 03/23/23 Albuterol Nebulized [Ventolin 2.5 mg INHALATION RT-BID PRN 03/23/23 03/23/23 Nebulized] Budesonide/Formoterol Fumarate 2 puff INHALATION RT-BID 03/23/23 03/23/23 [Symbicort 80-4.5 Mcg Inhaler] Clonidine(Unknown Dose) 1 tab PO DIRECTED 03/23/23 03/23/23 Cyclobenzaprine [Flexeril] 10 mg PO DAILY PRN 03/23/23 03/23/23 Ferrous Sulfate [Iron] 325 mg PO TID 03/23/23 03/23/23 Naproxen [EC-Naprosyn] 500 mg PO BID PRN 03/23/23 03/23/23 amLODIPine [Norvasc] 10 mg PO DAILY 03/23/23 03/23/23 lisinopriL 40 mg PO DAILY 03/23/23 03/23/23 Allergies Allergy/AdvReac Type Severity Reaction Status Date / Time No Known Allergies Allergy Verified 11/20/23 10:30 Review of Systems ROS Statement: Those systems with pertinent positive or pertinent negative responses have been documented in the HPI. ROS Other: All systems not noted in ROS Statement are negative. Past Medical History Past Medical History: Hypertension Additional Past Medical History / Comment(s): sickle cell trait, anemia History of Any Multi-Drug Resistant Organisms: None Reported Past Surgical History: No Surgical Hx Reported Past Anesthesia/Blood Transfusion Reactions: No Reported Reaction Past Psychological History: No Psychological Hx Reported Smoking Status: Never smoker Past Alcohol Use History: Occasional Past Drug Use History: Marijuana General Exam - General Exam Comments Initial Comments: Visual Physical Exam Vital signs reviewed General: Well-appearing, nontoxic, no acute distress. Head: Normocephalic, atraumatic Eyes: PERRLA, EOMI ENT: Airway patent Chest: Nonlabored breathing Skin: No visual rash, normal skin tone Neuro: Alert and oriented 3 Musculoskeletal: No gross abnormalities Limitations: no limitations General appearance: alert, in no apparent distress Head exam: Present: atraumatic, normocephalic, normal inspection ENT exam: Present: normal exam, normal oropharynx, mucous membranes moist, TM's normal bilaterally Neck exam: Present: normal inspection. Absent: tenderness, meningismus, lymphadenopathy Respiratory exam: Present: normal lung sounds bilaterally. Absent: respiratory distress, wheezes, rales, rhonchi, stridor Cardiovascular Exam: Present: regular rate, normal rhythm, normal heart sounds. Absent: systolic murmur, diastolic murmur, rubs, gallop, clicks Neurological exam: Present: alert, oriented X3, CN II-XII intact Skin exam: Present: warm, dry, intact, normal color. Absent: rash Course Vital Signs 11/20/23 10:27 Temperature 98.5 F Pulse Rate 62 Respiratory 19 Rate Blood Pressure 164/96 O2 Sat by Pulse 97 Oximetry Medical Decision Making - Medical Decision Making I performed the quick note portion of this chart. Electronically signed by Emelia Pineda PA-C Was pt. sent in by a medical professional or institution (ULISES Padilla, EFFICIENCY MANAGER, urgent care, hospital, or longterm...) When possible be specific @ -No Did you speak to anyone other than the patient for history (EMS, parent, family, police, friend...)? What history was obtained from this source @ -No Did you review nursing and triage notes (agree or disagree)? Why? @ -I reviewed and agree with nursing and triage notes Were old charts reviewed (outside hosp., previous admission, EMS record, old EKG, old radiological studies, urgent care reports/EKG's, longterm records)? Report findings @ -No old charts were reviewed Differential Diagnosis (chest pain, altered mental status, abdominal pain women, abdominal pain men, vaginal bleeding, weakness, fever, dyspnea, syncope, headache, dizziness, GI bleed, back pain, seizure, CVA, palpatations, mental health, musculoskeletal)? @ -COVID, RSV, influenza, viral sinusitis, pneumonia this list is not meant to be all-inclusive EKG interpreted by me (3pts min.). @ -None X-rays interpreted by me (1pt min.). @ -None done CT interpreted by me (1pt min.). @ -None done U/S interpreted by me (1pt. min.). @ -None done What testing was considered but not performed or refused? (CT, X-rays, U/S, labs)? Why? @ -None What meds were considered but not given or refused? Why? @ -None Did you discuss the management of the patient with other professionals (professionals i.e. , PA, EFFICIENCY MANAGER, lab, RT, psych nurse, social services coordinator, registered pharmacist, teacher, ground defence officer, behavioral health case manager)? Give summary @ -No Was smoking cessation discussed for >3mins.? @ -No Was critical care preformed (if so, how long)? @ -No Were there social determinants of health that impacted care today? How? (Homelessness, low income, unemployed, alcoholism, drug addiction, transportation, low edu. Level, literacy, decrease access to med. care, long-term, rehab)? @ -No Was there de-escalation of care discussed even if they declined (Discuss DNR or withdrawal of care, Hospice)? DNR status @ -No What co-morbidities impacted this encounter? (DM, HTN, Smoking, COPD, CAD, Cancer, CVA, ARF, Chemo, Hep., AIDS, mental health diagnosis, sleep apnea, morbid obesity)? @ -None Was patient admitted / discharged? Hospital course, mention meds given and route, prescriptions, significant lab abnormalities, going to OR and other pertinent info. @ -Discharge. 43-year-old female presenting to the ER with a chief complaint of myalgias. History and physical exam completed. Vitals stable. Patient no signs of acute distress and nontoxic-appearing. COVID, influenza, RSV negative. Results discussed with patient, all questions answered. I advised [id number] Tylenol and Motrin for symptom control. Return parameters discussed. Patient discharged in stable condition with follow-up to PCP. Patient verbally expressed understanding and agreement with care plan. Case discussed with ED attending, Dr. Quinn. Undiagnosed new problem with uncertain prognosis? @ -No Drug Therapy requiring intensive monitoring for toxicity (Heparin, Nitro, Insulin, Cardizem)? @ -No Were any procedures done? @ -No Diagnosis/symptom? @ -Viral sinusitis/viral illness Acute, or Chronic, or Acute on Chronic? @ -Acute Uncomplicated (without systemic symptoms) or Complicated (systemic symptoms)? @ -Uncomplicated Side effects of treatment? @ -No Exacerbation, Progression, or Severe Exacerbation? @ -No Poses a threat to life or bodily function? How? (Chest pain, [place], DC, pneumonia, PE, COPD, DKA, ARF, appy, cholecystitis, CVA, Diverticulitis, Homicidal, Suicidal, threat to staff... and all critical care pts) @ -No - Lab Data Lab Results 11/20/23 Range/Units 10:40 Influenza Type A (PCR) Not Detected (Not Detectd) Influenza Type B (PCR) Not Detected (Not Detectd) RSV (PCR) Not Detected (Not Detectd) SARS-CoV-2 (PCR) Not Detected (Not Detectd) Disposition Clinical Impression: Viral infection, Acute viral sinusitis Disposition: HOME SELF-CARE Condition: Stable Instructions (If sedation given, give patient instructions): Fever in Adults (ED) Additional Instructions: Alternate [id number] Tylenol and Motrin for symptom control. Follow-up with PCP. Return to the ER for any new or worsening concerns. Is patient prescribed a controlled substance at d/c from ED?: No Referrals: Roderick Mccarthy MD [Primary Care Provider] - 1-2 days Time of Disposition: 11:53
== END 2023-11-20 12:12 | disposition home or self-care (01) ==
LOC: EC 10:10
DX: B34.9 Viral infection, unspecified (principal); J01.90 Acute sinusitis, unspecified; F12.90 Cannabis use, unspecified, uncomplicated; Z20.822 Contact with and (suspected) exposure to COVID-19
CPT/HCPCS: 87636; 99283

== ENCOUNTER 2024-02-15 14:20 | Emergency (ER) | payer OTHER ==
--- NOTE | 2024-02-15 15:23 | ED ---
Dizziness HPI - General Chief Complaint: Dizziness Stated Complaint: Sickle cell pain Time Seen by Provider: 02/15/24 14:56 Source: patient, EMS, RN notes reviewed, old records reviewed Mode of arrival: EMS Limitations: no limitations - History of Present Illness Initial Comments: This is a 43-year-old female to the ER today. Patient presents today for evaluation of sickle cell disease/sickle cell pain generalized bodyaches and pains with cough no current shortness of breath no fevers MD Complaint: dizziness, other (Chest pain body aches body pain) Timing: gradual onset History of Same: Yes History of Trauma: No Severity: moderate Improves With: nothing Worsens With: nothing Associated Symptoms: chest pain, shortness of breath, weakness - Related Data Home Medications Medication Instructions Recorded Confirmed Chlorthalidone [Hygroton] 25 mg PO DAILY 03/23/20 03/23/23 Albuterol Nebulized [Ventolin 2.5 mg INHALATION RT-BID PRN 03/23/23 03/23/23 Nebulized] Budesonide/Formoterol Fumarate 2 puff INHALATION RT-BID 03/23/23 03/23/23 [Symbicort 80-4.5 Mcg Inhaler] Clonidine(Unknown Dose) 1 tab PO DIRECTED 03/23/23 03/23/23 Cyclobenzaprine [Flexeril] 10 mg PO DAILY PRN 03/23/23 03/23/23 Ferrous Sulfate [Iron] 325 mg PO TID 03/23/23 03/23/23 Naproxen [EC-Naprosyn] 500 mg PO BID PRN 03/23/23 03/23/23 amLODIPine [Norvasc] 10 mg PO DAILY 03/23/23 03/23/23 lisinopriL 40 mg PO DAILY 03/23/23 03/23/23 Previous Rx's Medication Instructions Recorded HYDROcodone/APAP 5-325MG [[place] 1 tab PO Q6HR PRN #12 tab 02/15/24 5-325] Orphenadrine [Norflex] 100 mg PO Q12H #20 tab 02/15/24 Allergies Allergy/AdvReac Type Severity Reaction Status Date / Time No Known Allergies Allergy Verified 02/15/24 14:49 Review of Systems ROS Statement: Those systems with pertinent positive or pertinent negative responses have been documented in the HPI. ROS Other: All systems not noted in ROS Statement are negative. Past Medical History Past Medical History: Hypertension Additional Past Medical History / Comment(s): sickle cell trait, anemia History of Any Multi-Drug Resistant Organisms: None Reported Past Surgical History: No Surgical Hx Reported Past Anesthesia/Blood Transfusion Reactions: No Reported Reaction Past Psychological History: Depression Smoking Status: Never smoker Past Alcohol Use History: Occasional Past Drug Use History: Marijuana General Exam Limitations: no limitations General appearance: alert, in no apparent distress, anxious Head exam: Present: atraumatic, normocephalic, normal inspection Eye exam: Present: normal appearance, PERRL, EOMI. Absent: scleral icterus, c onjunctival injection, periorbital swelling ENT exam: Present: normal exam, mucous membranes moist Neck exam: Present: normal inspection. Absent: tenderness, meningismus, lymphadenopathy Respiratory exam: Present: normal lung sounds bilaterally. Absent: respiratory distress, wheezes, rales, rhonchi, stridor Cardiovascular Exam: Present: regular rate, normal rhythm, normal heart sounds. Absent: systolic murmur, diastolic murmur, rubs, gallop, clicks GI/Abdominal exam: Present: soft, normal bowel sounds. Absent: distended, tenderness, guarding, rebound, rigid Extremities exam: Present: normal inspection, full ROM, normal capillary refill. Absent: tenderness, pedal edema, joint swelling, calf tenderness Back exam: Present: normal inspection Neurological exam: Present: alert, oriented X3, CN II-XII intact Psychiatric exam: Present: normal affect, normal mood Skin exam: Present: warm, dry, intact, normal color. Absent: rash Course Vital Signs 02/15/24 02/15/24 14:46 17:52 Temperature 98.5 F 98.7 F Pulse Rate 84 74 Respiratory 20 18 Rate Blood Pressure 160/96 147/98 O2 Sat by Pulse 100 100 Oximetry - Reevaluation(s) Reevaluation #1: Medical records reviewed Reevaluation #2: Symptoms unchanged Reevaluation #3: Patient informed of results and questions answered Reevaluation #4: Was pt. sent in by a medical professional or institution (, PA, VICE CHAIRMAN, urgent care, hospital, or fci...) When possible be specific @ -no Did you speak to anyone other than the patient for history (EMS, parent, family, police, friend...)? What history was obtained from this source @ -no Did you review nursing and triage notes (agree or disagree)? Why? @ -agree Are old charts reviewed (outside hosp., previous admission, EMS record, old EKG, old radiological studies, urgent care reports/EKG's, fci records)? Report findings @ -yes Differential Diagnosis (chest pain, altered mental status, abdominal pain women, abdominal pain men, vaginal bleeding, weakness, fever, dyspnea, syncope, headache, dizziness, GI bleed, back pain, seizure, CVA, palpatations, mental health, musculoskeletal)? @ -prior EKG interpreted by me (3pts min.). @ -yes X-rays interpreted by me (1pt min.). @ -yes negative for acute disease CT interpreted by me (1pt min.). @ -no U/S interpreted by me (1pt. min.). @ -no What testing was considered but not performed or refused? (CT, X-rays, U/S, labs)? Why? @ -none What meds were considered but not given or refused? Why? @ -none Did you discuss the management of the patient with other professionals (prof keikoionals i.e. , PA, VICE CHAIRMAN, lab, RT, psych nurse, social work faculty member, pinmaker, teacher, anti air warfare operations officer, social work case manager)? Give summary @ -no Was smoking cessation discussed for >3mins.? @ -no Was critical care preformed (if so, how long)? @ -no Were there social determinants of health that impacted care today? How? (Homelessness, low income, unemployed, alcoholism, drug addiction, transportation, low edu. Level, literacy, decrease access to med. care, custodial, rehab)? @ -none Was there de-escalation of care discussed even if they declined (Discuss DNR or withdrawal of care, Hospice)? DNR status @ -no What co-morbidities impacted this encounter? (DM, HTN, Smoking, COPD, CAD, Cancer, CVA, ARF, Chemo, Hep., AIDS, mental health diagnosis, sleep apnea, morbid obesity)? @ -none Was patient admitted / discharged? Hospital course, mention meds given and route, prescriptions, significant lab abnormalities, going to OR and other pertinent info. @ - 43 female to ER for evaluation of sickle cell disease patient presents for sickle cell pain pain is improved here in the ER is in no acute distress and can be discharged home Discharged Undiagnosed new problem with uncertain prognosis? @ -no Drug Therapy requiring intensive monitoring for toxicity (Heparin, Nitro, Insulin, Cardizem)? @ -no Were any procedures done? @ -no Diagnosis/symptom? @ -sickle cell disease Acute, or Chronic, or Acute on Chronic? @ -Acute Uncomplicated (without systemic symptoms) or Complicated (systemic symptoms)? @ -Complicated Side effects of treatment? @ -no Exacerbation, Progression, or Severe Exacerbation? @ -exacerbation Poses a threat to life or bodily function? How? (Chest pain, [place], [place], pneumonia, PE, COPD, DKA, ARF, appy, cholecystitis, CVA, Diverticulitis, Homicidal, Suicidal, threat to staff... and all critical care pts) @ -yes sickle cell crisis Reevaluation #5: Differential Dizziness: Benign paroxysmal positional Vertigo, Menieres disease, otitis media, acoustic neuroma, vertebrobasilar insufficiency, cerebellar stroke, encephalitis, hypovolemic, arrhythmia, coronary artery syndrome, anemia, this is not meant to be an all-inclusive list EKG Findings - EKG Comments: EKG Findings:: EKG is sinus 61 OK 172 QRS 95 QTc 422 - EKG Results: EKG: interpreted by LALA Medical Decision Making - Medical Decision Making 43 female to ER for evaluation of sickle cell disease patient presents for sickle cell pain pain is improved here in the ER is in no acute distress and can be discharged home - Lab Data Result diagrams: 02/15/24 15:52 02/15/24 15:52 Lab Results 02/15/24 02/15/24 02/15/24 Range/Units 15:52 15:52 15:52 WBC 11.0 H (3.8-10.6) k/uL RBC 4.38 (3.80-5.40) m/uL Hgb 9.2 L (11.4-16.0) gm/dL Hct 31.3 L (34.0-46.0) % MCV 71.5 L (80.0-100.0) fL MCH 20.9 L (25.0-35.0) pg MCHC 29.3 L (31.0-37.0) g/dL RDW 20.4 H (11.5-15.5) % Plt Count 306 (150-450) k/uL MPV 10.3 Neutrophils % (Manual) 45 % Lymphocytes % (Manual) 20 % Monocytes % (Manual) 5 % Eosinophils % (Manual) 30 % Basophils % (Manual) 1 % Neutrophils # (Manual) 4.95 (1.3-7.7) k/uL Lymphocytes # (Manual) 2.20 (1.0-4.8) k/uL Monocytes # (Manual) 0.55 (0-1.0) k/uL Eosinophils # (Manual) 3.30 H (0-0.7) k/uL Basophils # (Manual) 0.11 (0-0.2) k/uL Nucleated RBCs 0 (0-0) /100 WBC Manual Slide Review Performed Hypochromasia Marked Poikilocytosis Slight Anisocytosis Moderate Microcytosis Marked Retic Count (0.5-2.0) % PT 10.5 (10.0-12.5) sec INR 0.9 (<1.2) APTT 22.0 (22.0-30.0) sec Sodium 138 (137-145) mmol/L Potassium 4.2 (3.5-5.1) mmol/L Chloride 109 H (98-107) mmol/L Carbon Dioxide 23 (22-30) mmol/L Anion Gap 6 mmol/L BUN 11 (7-17) mg/dL Creatinine 0.52 (0.52-1.04) mg/dL Est GFR (CKD-EPI)AfAm >90 (>60 ml/min/1.73 sqM) Est GFR (CKD-EPI)NonAf >90 (>60 ml/min/1.73 sqM) Glucose 98 (74-99) mg/dL Calcium 9.8 (8.4-10.2) mg/dL Phosphorus 3.0 (2.5-4.5) mg/dL Magnesium 2.1 (1.6-2.3) mg/dL Total Bilirubin 0.3 (0.2-1.3) mg/dL AST 23 (14-36) U/L ALT 11 (4-34) U/L Alkaline Phosphatase 53 (38-126) U/L Lactate Dehydrogenase 238 (120-246) U/L Troponin I (0.000-0.034) ng/mL NT-Pro-B Natriuret Pep <20 pg/mL Total Protein 7.1 (6.3-8.2) g/dL Albumin 4.0 (3.5-5.0) g/dL Influenza Type A (PCR) (Not Detectd) Influenza Type B (PCR) (Not Detectd) RSV (PCR) (Not Detectd) SARS-CoV-2 (PCR) (Not Detectd) 02/15/24 02/15/24 02/15/24 Range/Units 15:52 15:52 15:52 WBC (3.8-10.6) k/uL RBC (3.80-5.40) m/uL Hgb (11.4-16.0) gm/dL Hct (34.0-46.0) % MCV (80.0-100.0) fL MCH (25.0-35.0) pg MCHC (31.0-37.0) g/dL RDW (11.5-15.5) % Plt Count (150-450) k/uL MPV Neutrophils % (Manual) % Lymphocytes % (Manual) % Monocytes % (Manual) % Eosinophils % (Manual) % Basophils % (Manual) % Neutrophils # (Manual) (1.3-7.7) k/uL Lymphocytes # (Manual) (1.0-4.8) k/uL Monocytes # (Manual) (0-1.0) k/uL Eosinophils # (Manual) (0-0.7) k/uL Basophils # (Manual) (0-0.2) k/uL Nucleated RBCs (0-0) /100 WBC Manual Slide Review Hypochromasia Poikilocytosis Anisocytosis Microcytosis Retic Count 1.3 (0.5-2.0) % PT (10.0-12.5) sec INR (<1.2) APTT (22.0-30.0) sec Sodium (137-145) mmol/L Potassium (3.5-5.1) mmol/L Chloride (98-107) mmol/L Carbon Dioxide (22-30) mmol/L Anion Gap mmol/L BUN (7-17) mg/dL Creatinine (0.52-1.04) mg/dL Est GFR (CKD-EPI)AfAm (>60 ml/min/1.73 sqM) Est GFR (CKD-EPI)NonAf (>60 ml/min/1.73 sqM) Glucose (74-99) mg/dL Calcium (8.4-10.2) mg/dL Phosphorus (2.5-4.5) mg/dL Magnesium (1.6-2.3) mg/dL Total Bilirubin (0.2-1.3) mg/dL AST (14-36) U/L ALT (4-34) U/L Alkaline Phosphatase (38-126) U/L Lactate Dehydrogenase (120-246) U/L Troponin I <0.012 (0.000-0.034) ng/mL NT-Pro-B Natriuret Pep pg/mL Total Protein (6.3-8.2) g/dL Albumin (3.5-5.0) g/dL Influenza Type A (PCR) Not Detected (Not Detectd) Influenza Type B (PCR) Not Detected (Not Detectd) RSV (PCR) Not Detected (Not Detectd) SARS-CoV-2 (PCR) Not Detected (Not Detectd) - Radiology Data Radiology results: report reviewed (Chest x-ray is negative for acute disease), image reviewed Disposition Clinical Impression: Sickle cell pain crisis, Dizziness, Anemia Disposition: HOME SELF-CARE Condition: Good Instructions (If sedation given, give patient instructions): Dizziness (ED) Prescriptions: HYDROcodone/APAP 5-325MG [[place] 5-325] 1 tab PO Q6HR PRN #12 tab PRN Reason: Pain Orphenadrine [Norflex] 100 mg PO Q12H #20 tab Is patient prescribed a controlled substance at d/c from ED?: No Referrals: Roderick Mccarthy MD [Primary Care Provider] - 1-2 days Time of Disposition: 17:00
[2024-02-15] MEDS: KETOROLAC 15 MG/ML 1 ML VIAL IVP STA (16:02)
[2024-02-15] MEDS: diphenhydrAMINE 50 MG/ML 1 ML VIAL IVP STA (16:02)
[2024-02-15] MEDS: HYDROmorphone 1 MG/ML 1 ML SYRINGE IVP STA (16:03)
[2024-02-15] MEDS: SODIUM CHLORIDE 0.9% 1,000 ML IV STA (16:05)
[2024-02-15 16:18] LABS: Reticulocyte % 1.3 % (0.5-2.0)
--- NOTE | 2024-02-15 16:19 | XR ---
EXAMINATION TYPE: XR chest 1V DATE OF EXAM: 02/15/2024 COMPARISON: NONE HISTORY: Chest pain TECHNIQUE: Single frontal view of the chest is obtained. FINDINGS: There is no focal air space opacity, pleural effusion, or pneumothorax seen. The cardiac silhouette size is within normal limits. The osseous structures are intact. IMPRESSION: 1. No acute process.
[2024-02-15 16:26] LABS: ALT 11 U/L (4-34); AST 23 U/L (14-36); African American GFR (CKD) >90 (>60 ml/min/1.73 sqM); Alkaline Phosphatase 53 U/L (38-126); Anion Gap 6 mmol/L; Blood Urea Nitrogen 11 mg/dL (7-17); Calcium 9.8 mg/dL (8.4-10.2); Carbon Dioxide 23 mmol/L (22-30); Chloride 109 mmol/L (98-107); Glucose 98 mg/dL (74-99); LDH 238 U/L (120-246); Magnesium 2.1 mg/dL (1.6-2.3); Non-African American GFR(CKD) >90 (>60 ml/min/1.73 sqM); Potassium 4.2 mmol/L (3.5-5.1); Sodium 138 mmol/L (137-145); Total Bilirubin 0.3 mg/dL (0.2-1.3); Total Protein 7.1 g/dL (6.3-8.2)
[2024-02-15 16:33] LABS: NT-Pro-B-Type Natriuretic Pept <20 pg/mL
[2024-02-15 16:35] LABS: Anisocytosis Moderate; HCT 31.3 % (34.0-46.0); HGB 9.2 gm/dL (11.4-16.0); Hypochromasia Marked; MCH 20.9 pg (25.0-35.0); MCHC 29.3 g/dL (31.0-37.0); MCV 71.5 fL (80.0-100.0); Mean Platelet Volume 10.3; Microcytosis Marked; Platelet Count 306 k/uL (150-450); Poikilocytosis Slight; RBC 4.38 m/uL (3.80-5.40); RDW 20.4 % (11.5-15.5)
[2024-02-15 16:41] LABS: INR 0.9 (<1.2); Prothrombin Time 10.5 sec (10.0-12.5)
[2024-02-15 17:31] LABS: Basophils # (M) 0.11 k/uL (0-0.2); Monocytes # (M) 0.55 k/uL (0-1.0); Neutrophils # (M) 4.95 k/uL (1.3-7.7); Neutrophils % (M) 45 %; Nucleated Red Blood Cells 0 /100 WBC (0-0); Total Cells Counted 200
[2024-02-15 17:53] VITALS: BP 147/98; PULSE 74; RESP 18; TEMP 98.7
== END 2024-02-15 17:54 | disposition home or self-care (01) ==
LOC: EC 14:20
DX: D57.00 Hb-SS disease with crisis, unspecified (principal); D64.9 Anemia, unspecified; R42 Dizziness and giddiness; Z11.52 Encounter for screening for COVID-19
CPT/HCPCS: 36415; 83880; 80053; 83615; 83735; 84100; 84484; 85025; 85610; 85045; 85730; 87636; 71045; 99284; 96374; 96375 ×2; 96361; J1200; J1170; J1885

== ENCOUNTER 2024-03-26 06:00 | Inpatient (IN) | payer OTHER ==
[~2024-03-26 06:00] MED LIST: HYDROmorphone 1 MG/ML 1 ML SYRINGE ONE
[2024-03-26] MEDS ORDERED: HYDROmorphone 1 MG/ML 1 ML SYRINGE ONE ×3 (07:47→17:01)
[2024-03-26] MEDS ORDERED: FERROUS SULFATE 325 MG TAB PO ONE (21:38)
[2024-03-26] MEDS ORDERED: SODIUM CHLORIDE 0.9% 1,000 ML BAG ONE (21:45)
[2024-03-27] MEDS ORDERED: SODIUM CHLORIDE 0.9% 1,000 ML BAG ONE ×2 (01:58→14:55)
[2024-03-27] MEDS ORDERED: FERROUS SULFATE 325 MG TAB PO ONE ×2 (07:47→14:52)
[2024-03-27] MEDS ORDERED: lamoTRIgine 25 MG TAB ONE (07:48)
[2024-03-27] MEDS ORDERED: HYDROmorphone 1 MG/ML 1 ML SYRINGE ONE ×2 (07:48→17:28)
[2024-03-27] MEDS ORDERED: CYCLOBENZAPRINE 10 MG TAB ONE (07:48)
[2024-03-28] MEDS ORDERED: HYDROmorphone 1 MG/ML 1 ML SYRINGE ONE ×2 (03:18→08:44)
[2024-03-28] MEDS ORDERED: SODIUM CHLORIDE 0.9% 1,000 ML BAG ONE (04:55)
[2024-03-28] MEDS ORDERED: FERROUS SULFATE 325 MG TAB PO ONE (08:29)
[2024-03-28] MEDS ORDERED: lamoTRIgine 25 MG TAB ONE (08:29)
[2024-03-28] MEDS ORDERED: CYCLOBENZAPRINE 10 MG TAB ONE (08:29)
[2024-03-28] MEDS ORDERED: NALOXONE 0.4 MG/ML 1 ML VIAL IV PRN (14:28)
[2024-03-28] MEDS ORDERED: ONDANSETRON 4 MG/2 ML VIAL IVP PRN (15:43)
[2024-03-29] MEDS ORDERED: ACETAMINOPHEN TAB 325 MG TAB PO PRN
[2024-03-29] MEDS ORDERED: NALOXONE 0.4 MG/ML 1 ML VIAL IVP PRN
[2024-03-29] MEDS: SODIUM CHLORIDE 0.9% 1,000 ML IV SCH (05:37)
[2024-03-29 06:18] LABS: ALT 12 U/L (4-34); AST 21 U/L (14-36); African American GFR (CKD) >90 (>60 ml/min/1.73 sqM); Albumin 3.6 g/dL (3.5-5.0); Albumin/Globulin Ratio 1.2; Alkaline Phosphatase 60 U/L (38-126); Anion Gap 6 mmol/L; Blood Urea Nitrogen 5 mg/dL (7-17); Calcium 9.3 mg/dL (8.4-10.2); Carbon Dioxide 27 mmol/L (22-30); Chloride 101 mmol/L (98-107); Glucose 115 mg/dL (74-99); Non-African American GFR(CKD) >90 (>60 ml/min/1.73 sqM); Potassium 3.7 mmol/L (3.5-5.1); Sodium 134 mmol/L (137-145); Total Bilirubin 0.3 mg/dL (0.2-1.3); Total Protein 6.6 g/dL (6.3-8.2)
[2024-03-29 06:33] LABS: Anisocytosis Moderate; Basophils % (A) 0 %; Eosinophils # (A) 8.5 k/uL (0-0.7); Eosinophils % (A) 58 %; HCT 29.1 % (34.0-46.0); HGB 9.1 gm/dL (11.4-16.0); Hypochromasia Marked; Lymphocytes # (A) 2.4 k/uL (1.0-4.8); Lymphocytes % (A) 17 %; MCH 22.2 pg (25.0-35.0); MCHC 31.1 g/dL (31.0-37.0); MCV 71.2 fL (80.0-100.0); Mean Platelet Volume 8.7; Microcytosis Marked; Monocytes # (A) 0.4 k/uL (0-1.0); Monocytes % (A) 3 %; Neutrophils # (A) 3.2 k/uL (1.3-7.7); Neutrophils % (A) 22 %; Platelet Count 278 k/uL (150-450); RBC 4.09 m/uL (3.80-5.40); RDW 21.1 % (11.5-15.5); WBC 14.7 k/uL (3.8-10.6)
[2024-03-29] MEDS: HYDROmorphone 1 MG/ML 1 ML SYRINGE IVP PRN (08:50)
[2024-03-29] MEDS: FERROUS SULFATE 325 MG TAB PO SCH (08:50)
[2024-03-29] MEDS: CYCLOBENZAPRINE 10 MG TAB PO SCH (08:51)
[2024-03-29] MEDS: lamoTRIgine 25 MG TAB PO SCH (08:51)
[2024-03-29] MEDS: amLODIPine 10 MG TAB PO SCH (08:51)
[2024-03-29] MEDS: CHLORTHALIDONE 25 MG TAB PO SCH (09:54)
[2024-03-29] MEDS: HYDROcodone/APAP 5-325MG 1 EACH TAB PO PRN (15:17)
[2024-03-29] MEDS: polyethylene glycoL 3350 17 GM POWD.PACK PO SCH (15:18)
[2024-03-30] MEDS: HYDROmorphone 1 MG/ML 1 ML SYRINGE ONE ×4 (12:56→12:58)
[2024-03-30] MEDS: HYDROcodone/APAP 5-325MG 1 EACH TAB ONE (12:56)
[2024-03-30 19:45] VITALS: RESP 16
[2024-03-31 12:20] VITALS: BP 143/102; PULSE 101; TEMP 98.1
--- NOTE | 2024-04-17 14:04 | PN ---
PROGRESS NOTE DATE OF SERVICE: 03/27/2024 CHIEF COMPLAINT: Sickle cell crisis. HISTORY OF PRESENT ILLNESS: This lady is doing well, but she is still has quite a bit of pain. PHYSICAL EXAMINATION: VITAL SIGNS: Normal. She is afebrile. CHEST: Clear. CARDIAC: Normal. IMPRESSION: Sickle cell crisis. PLAN: Continue with IV fluids and analgesics for least another day. MMODL / IJN: [id number] /
--- NOTE | 2024-04-17 15:37 | PN ---
PROGRESS NOTE DATE OF SERVICE: 03/28/2024 CHIEF COMPLAINT: Sickle cell crisis. HISTORY OF PRESENT ILLNESS: This lady is still complaining of quite a bit of pain and she should be doing better. She has had no fever or chills. She states she has some chest pain. PHYSICAL EXAMINATION: CHEST: Chest wall is nontender and the chest is clear. CARDIAC: Normal. ABDOMEN: Soft and nontender. IMPRESSION: 1. Sickle cell crisis. 2. Chest pain. PLAN: 1. EKG. 2. Chem profile, lipase, and CBC and reassess in 24 hours. MMODL / IJN: [id number] /
--- NOTE | 2024-04-17 15:46 | PN ---
PROGRESS NOTE DATE OF SERVICE: 03/29/2024 CHIEF COMPLAINT: Sickle cell crisis and chest pain. HISTORY OF PRESENT ILLNESS: This lady is doing well and pain is gone. Apparently, she told nurse that she has been having her chest pain for months. EKG was normal. Blood work was repeated and is within normal limits. Blood pressure is up slightly, but she has been back on antihypertensives. Will change her Dilaudid to Vicodin and hopefully, be able to discharge her tomorrow. MMODL / IJN: [id number] /
--- NOTE | 2024-04-30 14:47 | HP ---
HISTORY AND PHYSICAL CHIEF COMPLAINT: Generalized abdominal pain. HISTORY OF PRESENT ILLNESS: This lady is admitted through the emergency room with sickle cell crisis. REVIEW OF SYSTEMS: She has had no fever or chills, nausea, vomiting, hematuria, etc. Past medical history, family history and personal and social histories are all otherwise unremarkable or noncontributory. PHYSICAL EXAMINATION: VITAL SIGNS: Normal. HEAD, EARS, EYES, NOSE, MOUTH AND THROAT: Normal. CHEST: Clear. CARDIAC: Exam is normal. ABDOMEN: Soft and nontender. EXTREMITIES: Normal. NEUROLOGIC: She is intact. ASSESSMENT: She is admitted to the hospital with diagnosis of sickle cell crisis. PLAN: 1. Bedrest. 2. IV fluids. 3. Analgesics. MMODL / IJN: [id number] /
== END 2024-03-31 18:48 | disposition home or self-care (01) | DRG 812 ==
LOC: 5NMEDONC 06:00
PROVIDERS: ADMIT Family Medicine; ATTEND Family Medicine
DX: D57.09 Hb-SS disease with crisis with other specified complication (principal); R07.89 Other chest pain; Z79.899 Other long term (current) drug therapy
CPT/HCPCS: 80053; 83874; 85025; 86850; 86900; 86901; 93005; 94760; 96361; 96374; 99285

== ENCOUNTER 2024-04-14 00:11 | Observation (INO) | payer OTHER ==
--- NOTE | 2024-04-14 00:53 | ED ---
Chest Pain HPI - General Chief Complaint: Chest Pain Stated Complaint: chest pain Time Seen by Provider: 04/14/24 00:33 Source: patient Mode of arrival: ambulatory Limitations: no limitations - History of Present Illness Initial Comments: This patient is a 43-year-old woman who states she has history of sickle cell disease, and presents with what she believes is a flare of her sickle cell disease. She states that this is similar to previous episodes. She describes having pain throughout her body as well as chest pain. The patient states that she had been in the hospital earlier in the month, her symptoms had improved and she was discharged however she had not gone back to her baseline. She states that things have gotten worse since leaving. When I question about infectious type symptoms, the patient does relate some sore throat on the right side. She has not noted fever or chills. No cough or dyspnea. No change in urination or bowel movements. MD Complaint: chest pain -: days(s) Onset: during rest Pain Location: left chest, right chest Pain Radiation: none Quality: aching Consistency: constant Improves With: nothing Worsens With: nothing Treatments Prior to Arrival: none - Related Data Home Medications Medication Instructions Recorded Confirmed Chlorthalidone [Hygroton] 25 mg PO DAILY 03/23/20 04/14/24 Cyclobenzaprine [Flexeril] 10 mg PO DAILY PRN 03/23/23 04/14/24 Ferrous Sulfate [Iron] 325 mg PO TID 03/23/23 04/14/24 amLODIPine [Norvasc] 10 mg PO DAILY 03/23/23 04/14/24 lisinopriL 40 mg PO DAILY 03/23/23 04/14/24 HYDROcodone/APAP 7.5-325MG [[place] 1 tab PO BID PRN 04/14/24 04/14/24 7.5-325] lamoTRIgine [LaMICtal] 25 mg PO DAILY 04/14/24 04/14/24 Allergies Allergy/AdvReac Type Severity Reaction Status Date / Time No Known Allergies Allergy Verified 04/14/24 09:33 Review of Systems ROS Statement: Those systems with pertinent positive or pertinent negative responses have been documented in the HPI. ROS Other: All systems not noted in ROS Statement are negative. Constitutional: Denies: fever, chills, weakness ENT: Reports: throat pain Respiratory: Denies: cough, dyspnea Cardiovascular: Reports: chest pain. Denies: palpitations, edema, syncope Gastrointestinal: Denies: abdominal pain, nausea, vomiting, diarrhea Genitourinary: Denies: dysuria, frequency, hematuria Musculoskeletal: Reports: as per HPI, arthralgia Skin: Denies: rash Neurological: Denies: headache, weakness, numbness EKG Findings - EKG Results: EKG: interpreted by ERMD, sinus rhythm (Rate 88 bpm), normal axis, normal QRS - Blocks, [place], Hypertrophy, ST Abn: Repolarization changes or abnormalities: nonspecific abnormality, ST segment, and/or T wave Past Medical History Past Medical History: Hypertension Additional Past Medical History / Comment(s): sickle cell trait, anemia History of Any Multi-Drug Resistant Organisms: None Reported Past Surgical History: No Surgical Hx Reported Past Anesthesia/Blood Transfusion Reactions: No Reported Reaction Past Psychological History: Depression Smoking Status: Never smoker Past Alcohol Use History: Occasional Past Drug Use History: Marijuana General Exam Limitations: no limitations General appearance: alert, in no apparent distress Head exam: Present: atraumatic, normocephalic Eye exam: Present: normal appearance. Absent: scleral icterus, conjunctival injection ENT exam: Present: normal oropharynx Neck exam: Present: normal inspection, full ROM. Absent: tenderness, meningismus Respiratory exam: Present: normal lung sounds bilaterally. Absent: respiratory distress, wheezes, rales, rhonchi, stridor, accessory muscle use Cardiovascular Exam: Present: regular rate, normal rhythm, normal heart sounds. Absent: systolic murmur, diastolic murmur, rubs, gallop GI/Abdominal exam: Present: soft. Absent: distended, tenderness, guarding, rebound, rigid, mass Extremities exam: Present: normal inspection Back exam: Present: normal inspection. Absent: vertebral tenderness Neurological exam: Present: alert Psychiatric exam: Present: normal affect Skin exam: Present: warm, dry, intact, normal color. Absent: rash Course Vital Signs 04/14/24 04/14/24 04/14/24 00:14 04:15 04:37 Temperature 97.9 F Pulse Rate 110 H 79 98 Respiratory 20 18 17 Rate Blood Pressure 143/104 135/88 122/75 O2 Sat by Pulse 99 98 97 Oximetry 04/14/24 04/14/24 04/14/24 06:00 08:45 11:43 Temperature 98.1 F Pulse Rate 85 72 70 Respiratory 18 17 18 Rate Blood Pressure 139/81 147/93 162/113 O2 Sat by Pulse 94 L 99 98 Oximetry Chest Pain MDM - MDM The patient had chest x-ray that I interpreted as negative for acute infiltrate, pneumothorax, congestive heart failure. Patient is a 43-year-old woman with history of sickle cell disease presenting with symptoms of her typical pain crisis. She has had multiple analgesic here with only minimal relief of symptoms. Will admit to have further IV hydration as well as hematology. Was pt. sent in by a medical professional or institution (, PA, BOILER ROOM HELPER, urgent care, hospital, or fdc...) When possible be specific @ -[No] Did you speak to anyone other than the patient for history (EMS, parent, family, police, friend...)? What history was obtained from this source @ -[No] Did you review nursing and triage notes (agree or disagree)? Why? @ -[I reviewed and agree with nursing and triage notes] Were old charts reviewed (outside hosp., previous admission, EMS record, old EKG, old radiological studies, urgent care reports/EKG's, fdc records)? Report findings @ -[No old charts were reviewed] Differential Diagnosis (chest pain, altered mental status, abdominal pain women, abdominal pain men, vaginal bleeding, weakness, fever, dyspnea, syncope, headache, dizziness, GI bleed, back pain, seizure, CVA, palpatations, mental health, musculoskeletal)? @ -[Differential Chest Pain: Stable Angina, Unstable Angina, STEMI, NSTEMI Aortic Dissection, Pneumothorax, Musculoskeletal, Esophageal Spasm GERD, Cholecystitis, Pancreatitis, Zoster, this is not meant to be an all-inclusive list. EKG interpreted by me (3pts min.). @ -[I interpreted as above] X-rays interpreted by me (1pt min.). @ -[I interpreted as above CT interpreted by me (1pt min.). @ -[None done] U/S interpreted by me (1pt. min.). @ -[None done] What testing was considered but not performed or refused? (CT, X-rays, U/S, labs)? Why? @ -[None] What meds were considered but not given or refused? Why? @ -[None] Did you discuss the management of the patient with other professionals (professionals i.e. , PA, BOILER ROOM HELPER, lab, RT, psych nurse, long term care social worker, preventive maintenance coordinator, teacher, search and rescue officer, vocational case manager)? Give summary @ -[Case discussed with admitting physician and treatment recommendations incorporated Was smoking cessation discussed for >3mins.? @ -[No] Was critical care preformed (if so, how long)? @ -[No] Were there social determinants of health that impacted care today? How? (Homelessness, low income, unemployed, alcoholism, drug addiction, transportation, low edu. Level, literacy, decrease access to med. care, prison, rehab)? @ -[No] Was there de-escalation of care discussed even if they declined (Discuss DNR or withdrawal of care, Hospice)? DNR status @ -[No] What co-morbidities impacted this encounter? (DM, HTN, Smoking, COPD, CAD, Cancer, CVA, ARF, Chemo, Hep., AIDS, mental health diagnosis, sleep apnea, morbid obesity)? @ -[History of sickle cell disease Was patient admitted / discharged? Hospital course, mention meds given and route, prescriptions, significant lab abnormalities, going to OR and other pertinent info. @ -[See above Undiagnosed new problem with uncertain prognosis? @ -[No] Drug Therapy requiring intensive monitoring for toxicity (Heparin, Nitro, Insulin, Cardizem)? @ -[No] Were any procedures done? @ -[No] Diagnosis/symptom? @ -[Acute sickle cell pain crisis Acute, or Chronic, or Acute on Chronic? @ -[Acute Uncomplicated (without systemic symptoms) or Complicated (systemic symptoms)? @ -[Uncomplicated Side effects of treatment? @ -[No] Exacerbation, Progression, or Severe Exacerbation? @ -[No] Poses a threat to life or bodily function? How? (Chest pain, [place], [place], pneumonia, PE, COPD, DKA, ARF, appy, cholecystitis, CVA, Diverticulitis, Homicidal, Suicidal, threat to staff... and all critical care pts) @ -[No] Disposition Clinical Impression: Sickle cell pain crisis Disposition: ADMITTED IP TO THIS [facility] Condition: Fair Is patient prescribed a controlled substance at d/c from ED?: No
[2024-04-14] MEDS: SODIUM CHLORIDE 0.9% 1,000 ML IV STA (01:27)
[2024-04-14] MEDS: MORPHINE SULFATE 4 MG/ML SYRINGE IV STA ×2 (01:27→04:34)
[2024-04-14] MEDS: SODIUM CHLORIDE 0.9% 1,000 ML IV ONE (01:27)
[2024-04-14 01:53] LABS: Anisocytosis Moderate; HCT 32.8 % (34.0-46.0); HGB 10.1 gm/dL (11.4-16.0); Hypochromasia Moderate; MCH 22.2 pg (25.0-35.0); MCHC 30.7 g/dL (31.0-37.0); MCV 72.5 fL (80.0-100.0); Microcytosis Marked; Platelet Count 295 k/uL (150-450); RBC 4.53 m/uL (3.80-5.40); RDW 22.8 % (11.5-15.5); Reticulocyte % 1.3 % (0.5-2.0); WBC 8.9 k/uL (3.8-10.6)
[2024-04-14 02:00] LABS: ALT 12 U/L (4-34); AST 21 U/L (14-36); African American GFR (CKD) >90 (>60 ml/min/1.73 sqM); Albumin 3.9 g/dL (3.5-5.0); Alkaline Phosphatase 54 U/L (38-126); Anion Gap 6 mmol/L; Blood Urea Nitrogen 7 mg/dL (7-17); Calcium 9.7 mg/dL (8.4-10.2); Carbon Dioxide 27 mmol/L (22-30); Chloride 105 mmol/L (98-107); Glucose 98 mg/dL (74-99); Non-African American GFR(CKD) >90 (>60 ml/min/1.73 sqM); Potassium 3.6 mmol/L (3.5-5.1); Sodium 138 mmol/L (137-145); Total Bilirubin 0.4 mg/dL (0.2-1.3); Total Protein 7.3 g/dL (6.3-8.2)
[2024-04-14 04:15] LABS: Amorphous Sediment,Urine Few /hpf; Appearance,Urine Cloudy (Clear); Bacteria,Urine Occasional /hpf; Bilirubin,Urine Negative (Negative); Blood,Urine Large (Negative); Color,Urine Colorless; Glucose,Urine (UA) Negative (Negative); Ketones,Urine Negative (Negative); Leukocyte Esterase,Urine Trace (Negative); Mucus,Urine Many /hpf; Nitrite,Urine Negative (Negative); Protein,Urine Negative (Negative); RBC,Urine 2 /hpf (0-5); Specific Gravity,Urine 1.008 (1.001-1.035); Squamous Epithelial Cell,Urine 13 /hpf (0-4); Urobilinogen,Urine <2.0 mg/dL (<2.0); WBC,Urine 17 /hpf (0-5)
--- NOTE | 2024-04-14 04:20 | XR ---
EXAM: XR Chest, 2 Views CLINICAL HISTORY: ITS.REASON XR Reason: chest pain TECHNIQUE: Frontal and lateral views of the chest. COMPARISON: Chest radiograph on 02/15/2024 FINDINGS: Hardware: None. Lungs/pleura: Mild bibasilar opacities likely represent atelectasis. No focal consolidation. No pleural effusion or pneumothorax. Heart/mediastinum: Normal. No cardiomegaly. Soft tissues: Unremarkable. Bones: No acute fracture. Upper abdomen: Normal. IMPRESSION: Mild bibasilar opacities likely represent atelectasis. No focal consolidation.
[2024-04-14 04:26] LABS: Anisocytosis (M) Present; Eosinophils # (M) 3.83 k/uL (0-0.7); Lymphocytes # (M) 2.14 k/uL (1.0-4.8); Monocytes # (M) 0.18 k/uL (0-1.0); Neutrophils # (M) 2.76 k/uL (1.3-7.7); Neutrophils % (M) 31 %; Nucleated Red Blood Cells 0 /100 WBC (0-0); Polychromasia Present; Target Cells Present; Total Cells Counted 100
[2024-04-14 04:27] LABS: Hypochromasia (M) Present; RBC Fragments Present
[2024-04-14] MEDS ORDERED: NALOXONE 0.4 MG/ML 1 ML VIAL IV PRN (07:10)
[2024-04-14] MEDS ORDERED: ACETAMINOPHEN TAB 325 MG TAB PO PRN (07:10)
[2024-04-14] MEDS ORDERED: HYDROcodone/APAP 5-325MG 1 EACH TAB PO PRN (07:12)
[2024-04-14] MEDS ORDERED: ALBUTEROL NEBULIZED 2.5 MG/3 ML INHALATION PRN (07:12)
[2024-04-14] MEDS ORDERED: NAPROXEN 250 MG TAB PO PRN (07:12)
[2024-04-14] MEDS: SYMBICORT 80-4.5 MCG INHALER INHALATION SCH (07:59)
[2024-04-14] MEDS: FERROUS SULFATE 325 MG TAB PO SCH (08:48)
[2024-04-14] MEDS: amLODIPine 10 MG TAB PO SCH (08:48)
[2024-04-14] MEDS: CHLORTHALIDONE 25 MG TAB PO SCH (08:48)
[2024-04-14] MEDS: lisinopriL 20 MG TAB PO SCH (08:48)
[2024-04-14] MEDS: MORPHINE SULFATE 4 MG/ML SYRINGE IV PRN (09:04)
[2024-04-14] MEDS ORDERED: CYCLOBENZAPRINE 10 MG TAB PO PRN (12:00)
[2024-04-14] MEDS: HYDROcodone/APAP 7.5-325MG 1 EACH TAB PO PRN (13:27)
[2024-04-14] MEDS: SODIUM CHLORIDE 0.9% 1,000 ML IV SCH (13:28)
--- NOTE | 2024-04-14 15:40 | P.CONS ---
History of Present Illness - Reason for Consult Consult date: 04/14/24 sickle cell pain Requesting physician: Marcelino Carrasco - Chief Complaint chest pain - History of Present Illness Patient is a 43 year old female. Consult was placed for sickle cell pain. Pt presented to the emergency room with complains of generalized muscle skeletal pain and chest pain. She reports she was diagnosed with sickle cell trait in [place]. She does not recall her physicians name. She states this pain is different than their her typical pain, which usually in her back and legs. She states that she was tested around age 23, when her daughter was found to have overt sickle cell disease. She has not seen a bi solutions architect in many years. She does have somewhat chronic anemia, based on labs reviewed and the EMR going back in the past 4-5 years. It appears that this is due to iron deficiency, from heavy menstrual losses. She is on no contraceptives and states she has f/u with EMPLOYMENT LEGAL ASSISTANT previously who had recommended possible ablation but states she never ended up following up on their recoemmendations. She states she has heavy menstruation for 7 days, with clotting. Labs showed hgb 10.1, MCV 72.5, MCH 22.2, WBC 8.9, plt 295,000. Retic normal at 1.3. Trop negative. CXR showed mild bibasilar opacities, likely atelectasis. SPO2 99% on room air Review of Systems 10 point ROS is negative except as stated in the HPI Past Medical History Past Medical History: Hypertension Additional Past Medical History / Comment(s): sickle cell trait, anemia History of Any Multi-Drug Resistant Organisms: None Reported Past Surgical History: No Surgical Hx Reported Past Anesthesia/Blood Transfusion Reactions: No Reported Reaction Past Psychological History: Depression Smoking Status: Never smoker Past Alcohol Use History: Occasional Past Drug Use History: Marijuana Medications and Allergies Home Medications Medication Instructions Recorded Confirmed Type Chlorthalidone [Hygroton] 25 mg PO DAILY 03/23/20 04/14/24 History Cyclobenzaprine [Flexeril] 10 mg PO DAILY PRN 03/23/23 04/14/24 History Ferrous Sulfate [Iron] 325 mg PO TID 03/23/23 04/14/24 History amLODIPine [Norvasc] 10 mg PO DAILY 03/23/23 04/14/24 History lisinopriL 40 mg PO DAILY 03/23/23 04/14/24 History HYDROcodone/APAP 7.5-325MG [[place] 1 tab PO BID PRN 04/14/24 04/14/24 History 7.5-325] lamoTRIgine [LaMICtal] 25 mg PO DAILY 04/14/24 04/14/24 History Allergies Allergy/AdvReac Type Severity Reaction Status Date / Time No Known Allergies Allergy Verified 04/14/24 09:33 Physical Exam Vitals: Vital Signs Temp Pulse Resp BP Pulse Ox 04/14/24 11:43 70 18 162/113 98 04/14/24 08:45 98.1 F 72 17 147/93 99 04/14/24 06:00 85 18 139/81 94 L 04/14/24 04:37 98 17 122/75 97 04/14/24 04:15 79 18 135/88 98 04/14/24 00:14 97.9 F 110 H 20 143/104 99 Intake and Output 04/13/24 04/14/24 04/14/24 22:59 06:59 14:59 Other: Weight 81.647 kg - Constitutional General appearance: average body habitus, no acute distress - EENT Eyes: anicteric sclerae, EOMI ENT: hearing grossly normal - Respiratory Respiratory: bilateral: CTA - Cardiovascular Rhythm: regular - Gastrointestinal General gastrointestinal: soft, no tenderness - Integumentary Integumentary: no cyanotic, no jaundiced - Neurologic Neurologic: CNII-XII intact - Musculoskeletal Musculoskeletal: strength equal bilaterally Results CBC & Chem 7: 04/14/24 01:29 04/14/24 01:29 Labs: Abnormal Lab Results - Last 24 Hours (Table) 04/14/24 04/14/24 Range/Units 01:29 02:33 Hgb 10.1 L (11.4-16.0) gm/dL Hct 32.8 L (34.0-46.0) % MCV 72.5 L (80.0-100.0) fL MCH 22.2 L (25.0-35.0) pg MCHC 30.7 L (31.0-37.0) g/dL RDW 22.8 H (11.5-15.5) % Eosinophils # (Manual) 3.83 H (0-0.7) k/uL Urine Appearance Cloudy H (Clear) Urine Blood Large H (Negative) Ur Leukocyte Esterase Trace H (Negative) Urine WBC 17 H (0-5) /hpf Ur Squamous Epith Cells 13 H (0-4) /hpf Amorphous Sediment Few H (None) /hpf Urine Bacteria Occasional H (None) /hpf Urine Mucus Many H (None) /hpf Chest x-ray: report reviewed Assessment and Plan (1) Sickle cell pain crisis Current Visit: Yes Status: Acute Priority: High Code(s): D57.00 - HB-SS DISEASE WITH CRISIS, UNSPECIFIED SNOMED Code(s): 265798380 (2) Anemia Current Visit: Yes Status: Acute Priority: Medium Code(s): D64.9 - ANEMIA, UNSPECIFIED SNOMED Code(s): 293958577 Plan: Sickle cell pain: Presented to the emergency room with complains of generalized muscle skeletal pain and chest pain. She reports she was diagnosed with sickle cell trait in [place]. She does not recall her physicians name. She states this pain is different than their her typical pain, which usually in her back and legs. Has not followed up with hematology in many years -CXR showing mild bibasilar opacities, likely atelectasis. Troponin negative -Hgb stable at 10.1, retic normal at 1.3. Bilirubin 0.4 -SPO2 99% on room air. Reporting improvement in pain at todays visit -Will obtain hemoglobin electrophoresis -Will establish care in outpt setting Microcytic, hypochromic Anemia History chronic anemia, based on labs reviewed and the EMR going back in the past 4-5 years. It appears that this is due to iron deficiency, from heavy menstrual losses. She is on no contraceptives and states she has f/u with EMPLOYMENT LEGAL ASSISTANT previously who had recommended possible ablation but states she never ended up following up on their recommendations. States her menstruation is typically for 7 days with heavy bleeding/clotting -Labs showed hgb 10.1, MCV 72.5, MCH 22.2, WBC 8.9, plt 295,000 -Anemia workup ordered -Continue to monitor CBC -Recommend f/u with EMPLOYMENT LEGAL ASSISTANT to further evaluate menorrhagia
[2024-04-14 16:30] LABS: % Iron Saturation 5.68 (12.00-45.00); Ferritin 20.6 ng/mL (10.0-291.0)
--- NOTE | 2024-04-14 23:10 | HP ---
HISTORY AND PHYSICAL Room 9 in the intensive care unit. CHIEF COMPLAINT: Generalized pain with sickle cell crisis. HISTORY OF PRESENT ILLNESS: This is another admission for this 43-year-old Afro-[place] female. She was just in the hospital, released. She went home and stated the pain never completely went away and started to come back until she got more severe. She denies any stressful events. REVIEW OF SYSTEMS: Otherwise unremarkable and unchanged. She has had no headaches, chest pain, shortness of breath, abdominal pain, fever, chills, etc. PAST MEDICAL HISTORY, FAMILY HISTORY, PERSONAL AND SOCIAL HISTORIES: Unchanged. PHYSICAL EXAMINATION: VITAL SIGNS: Blood pressure is 162/113 with a pulse of 93, respirations of 38. GENERAL: She appeared to be in some discomfort. HEENT: Head, ears, eyes, nose, mouth and throat were normal. NECK: Supple. CHEST: Clear. CARDIAC: Normal. ABDOMEN: Soft and nontender. EXTREMITIES: Normal. NEUROLOGIC: She is intact. DIAGNOSES: She is admitted to the hospital with diagnoses, 1. Sickle cell crisis. 2. Hypertension. PLAN: 1. Bed rest. 2. Analgesics. 3. Follow her blood pressure. MMODL / IJN: [id number] /
[2024-04-15] MEDS: lamoTRIgine 25 MG TAB PO SCH (09:04)
[2024-04-15] MEDS: SODIUM FERRIC GLUCONAT-SUCROSE 125 MG in SODIUM CHLORIDE 0.9% 100 ML IVPB SCH (14:05)
[2024-04-15] MEDS: FERROUS SULFATE 325 MG TAB PO SCH (16:53)
[2024-04-15] MEDS ORDERED: ALBUTEROL NEBULIZED 2.5 MG/3 ML INHALATION PRN (22:31)
[2024-04-15] MEDS: SYMBICORT 160-4.5 MCG INHALER INHALATION SCH (22:34)
[2024-04-16 04:37] LABS: Methylmalonic Acid 0.1 umol/L (<0.40)
[2024-04-16] MEDS ORDERED: IPRATROPIUM-ALBUTEROL 3 ML NEB INHALATION PRN (12:43)
[2024-04-16] MEDS ORDERED: ONDANSETRON 4 MG/2 ML VIAL IVP PRN (12:54)
--- NOTE | 2024-04-16 15:12 | P.PN ---
Subjective Progress Note Date: 04/16/24 No acute events. Reporting persisting generalized body pain. Also reporting congestion and feels like her asthma is flaring up. Hgb 10.1 on 04/14 Objective - Vital Signs Vital signs: Vital Signs Temp 97.4 F L 04/16/24 07:00 Pulse 91 04/16/24 08:00 Resp 16 04/16/24 08:00 BP 125/82 04/16/24 07:00 Pulse Ox 100 04/16/24 07:00 FiO2 Intake & Output 04/15/24 04/16/24 04/16/24 18:59 06:59 18:59 Other: # Voids 3 1 - Constitutional General appearance: Present: no acute distress - EENT Eyes: Present: anicteric sclerae, EOMI ENT: Present: hearing grossly normal - Respiratory Details: breathing is even and unlabored - Cardiovascular Details: skin warm and dry - Integumentary Integumentary: Absent: cyanotic, jaundiced - Neurologic Neurologic: Present: CNII-XII intact - Musculoskeletal Musculoskeletal: Present: strength equal bilaterally - Psychiatric Psychiatric: Present: A&O x's 3 - Labs CBC & Chem 7: 04/14/24 01:29 04/14/24 01:29 Labs: Abnormal Lab Results - Last 24 Hours (Table) 04/14/24 Range/Units 09:53 Hemoglobin A1 94.8 L (96.5-97.8) % Hemoglobin A2 4.4 H (2.2-3.2) % Assessment and Plan (1) Sickle cell pain crisis Current Visit: Yes Status: Acute Priority: High Code(s): D57.00 - HB-SS DISEASE WITH CRISIS, UNSPECIFIED SNOMED Code(s): 059712162 (2) Anemia Current Visit: Yes Status: Acute Priority: Medium Code(s): D64.9 - ANEMIA, UNSPECIFIED SNOMED Code(s): 026599365 Plan: Sickle cell pain: Presented to the emergency room with complains of generalized muscle skeletal pain and chest pain. She reports she was diagnosed with sickle cell trait in [place]. She does not recall her physicians name. She states this pain is different than their her typical pain, which usually in her back and legs. Has not followed up with hematology in many years -CXR showing mild bibasilar opacities, likely atelectasis. Troponin negative -Hgb stable at 10.1, retic normal at 1.3. Bilirubin 0.4 -SPO2 99% on room air. 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 It appears that this is due to iron deficiency, from heavy menstrual losses. She is on no contraceptives and states she has f/u with ARTIFICIAL STONE APPLICATOR previously who had recommended possible ablation but states she never ended up following up on their recommendations. States her menstruation is typically for 7 days with heavy bleeding/clotting -Labs showed hgb 10.1, MCV 72.5, MCH 22.2, WBC 8.9, plt 295,000 -Anemia workup showed iron def anemia, parenteral iron ordered -Continue to monitor CBC -Recommend f/u with ARTIFICIAL STONE APPLICATOR to further evaluate menorrhagia
[2024-04-17 09:55] VITALS: RESP 16
[2024-04-17 12:06] LABS: Anisocytosis Moderate; HCT 34.1 % (34.0-46.0); HGB 10.1 gm/dL (11.4-16.0); Hypochromasia Marked; MCH 22.2 pg (25.0-35.0); MCHC 29.8 g/dL (31.0-37.0); MCV 74.7 fL (80.0-100.0); Mean Platelet Volume 8.9; Microcytosis Marked; Platelet Count 332 k/uL (150-450); RBC 4.56 m/uL (3.80-5.40); RDW 22.5 % (11.5-15.5); WBC 9.5 k/uL (3.8-10.6)
[2024-04-17 14:46] LABS: Eosinophils # (M) 3.14 k/uL (0-0.7); Lymphocytes # (M) 2.47 k/uL (1.0-4.8); Monocytes # (M) 0.57 k/uL (0-1.0); Neutrophils # (M) 3.33 k/uL (1.3-7.7); Neutrophils % (M) 35 %; Nucleated Red Blood Cells 0 /100 WBC (0-0); Total Cells Counted 200
[2024-04-17 14:47] LABS: Target Cells Present
[2024-04-17 14:48] LABS: Poikilocytosis (M) Present
[2024-04-17 16:22] VITALS: BP 132/81; PULSE 92; TEMP 98
--- NOTE | 2024-04-17 19:06 | XR ---
EXAMINATION TYPE: XR chest 1V portable DATE OF EXAM: 04/17/2024 6:45 PM CLINICAL INDICATION:Female, 43 years old with history of pain with inspiration; [facility] COMPARISON: Chest radiographs from 04/14/2024 TECHNIQUE: XR chest 1V portable Frontal view of the chest. FINDINGS: Lungs/Pleura: There is no evidence of pleural effusion, focal consolidation, or pneumothorax. Pulmonary vascularity: Unremarkable. Heart/mediastinum: Cardiomediastinal silhouette is unremarkable. Musculoskeletal: No acute osseous pathology. IMPRESSION: No acute cardiopulmonary disease/process or significant change from recent chest radiograph.
--- NOTE | 2024-04-17 20:16 | PN ---
PROGRESS NOTE DATE OF SERVICE: 04/16/2024 CHIEF COMPLAINT: Sickle cell crisis with total body pain as well as shortness of breath. HISTORY OF PRESENT ILLNESS: This lady is still experiencing pain throughout her whole body and now she is complaining of shortness of breath. She has had no chest pain. She has had no fever or chills. PHYSICAL EXAMINATION: CHEST: Clear. CARDIAC: Normal. ABDOMEN: Soft, nontender. IMPRESSION: 1. Sickle cell crisis. 2. Shortness of breath. PLAN: 1. Chest x-ray. 2. Updrafts. 3. Repeat laboratory studies. She cannot be discharged today due to her new complaint of shortness of breath. MMODL / IJN: [id number] /
--- NOTE | 2024-04-17 22:31 | DS ---
DISCHARGE SUMMARY CHIEF COMPLAINT: Sickle cell crisis. HISTORY OF PRESENT ILLNESS AND PHYSICAL EXAMINATION: Details of this lady's history and physical can be found in the initial workup. LABORATORY STUDIES: While she was in the hospital, she had laboratory studies, details of which can be found in the laboratory section of her chart. COURSE IN THE HOSPITAL: After admission, she was placed on bedrest, started on intravenous fluids and analgesics. She continued to improve, although she continued to complain of some pain. It was felt that she could be discharged and then she stated that she was short of breath. This was addressed and no obvious abnormalities were identified. It was felt that she could be discharged on the , even though she seemed reluctant to leave the hospital. She will be follow up as an outpatient. FINAL DIAGNOSES: 1. Sickle cell crisis. 2. Hypertension. 3. Shortness of breath, etiology unknown. OPERATIONS: None. CONSULTATION: None. She is improved. MMODL / IJN: [id number] /
--- NOTE | 2024-04-18 01:07 | PN ---
PROGRESS NOTE DATE OF SERVICE: 04/15/2024 CHIEF COMPLAINT: Generalized pain due to sickle cell crisis. HISTORY OF PRESENT ILLNESS: This is another recent admission for this 43-year-old female, who came back in with "pain." She has had no fever, or chills. REVIEW OF SYSTEMS: Unremarkable. PHYSICAL EXAMINATION: VITAL SIGNS: Blood pressure is slightly elevated. CHEST: Clear. CARDIAC: Normal. ABDOMEN: Soft, nontender. IMPRESSION: 1. Sickle cell crisis. 2. Hypertension. PLAN: Admit to floor with IV fluids and analgesics. MMODL / IJN: [id number] /
== END 2024-04-17 19:56 | disposition home or self-care (01) ==
LOC: EC 00:11 → 6NMEDSUR 07:12 → 1SOBS 11:09 → 6NMEDSUR 04-16 18:53
PROVIDERS: ADMIT Family Medicine; ATTEND Family Medicine
DX: D57.00 Hb-SS disease with crisis, unspecified (principal); D50.9 Iron deficiency anemia, unspecified; I10 Essential (primary) hypertension; R06.02 Shortness of breath; Z79.899 Other long term (current) drug therapy
CPT/HCPCS: 36415; 71045; 71046; 80053; 81001; 81025; 82607; 82728; 82747; 83021; 83540; 83550; 83605; 83921; 84484; 85025; 85045; 87651; 93005; 94640; 96361; 96365; 96366; 96375; 96376; 99285

== ENCOUNTER → 2024-05-08 | Outpatient (CLI) | payer OTHER ==
--- NOTE | 2024-05-08 21:41 | US ---
EXAMINATION TYPE: US abdomen limited DATE OF EXAM: 05/08/2024 COMPARISON: NONE CLINICAL INDICATION: Female, 43 years old with history of R10.84 GENERAL ABD PAIN D57.1; Chest pain x few months; Hx sickle cell anemia TECHNIQUE: Multiple sonographic images of the left upper quadrant are obtained. FINDINGS: EXAM MEASUREMENTS: Spleen: 7.9 cm LADLE WATCHER NOTES: 1. Spleen: wnl IMPRESSION: 1. Normal left upper quadrant ultrasound. No suspicious splenic changes by ultrasound [facility], Workstation: [facility], 05/08/2024 9:39 PM
--- NOTE | 2024-05-10 20:46 | CT ---
EXAMINATION TYPE: CT chest wo con DATE OF EXAM: 05/08/2024 COMPARISON: None HISTORY: CHEST PAIN, SOB CT DLP: 277.7 mGycm, Automated exposure control for dose reduction was used. CONTRAST: Performed injected with 0 mL of Isovue 300. TECHNIQUE: Axial images were obtained at 5 mm thick sections. Reconstructed images are reviewed on [employer] computer in the coronal plane. FINDINGS: Portion of the thyroid visualized is normal. No suspicious lung nodules or focal infiltrates are present. Minimal bilateral pleural effusions are present. No enlarged mediastinal or hilar adenopathy is evident. The ascending aorta diameter at the level o f the main pulmonary artery is 3.6 cm. The main pulmonary artery diameter at the bifurcation is 2.[address] sections are obtained through the upper abdomen. Abdomen is essentially unremarkable. IMPRESSION: 1. No suspicious CT thorax abnormality [facility], Workstation: [facility], 05/10/2024 8:44 PM
== END | disposition home or self-care (01) ==
LOC: RADUSWWP 08:02
PROVIDERS: ATTEND Family Medicine
DX: R10.84 Generalized abdominal pain (principal); D57.1 Sickle-cell disease without crisis; R07.9 Chest pain, unspecified
CPT/HCPCS: 71250; 76705

== ENCOUNTER 2024-06-25 06:59 | Emergency (ER) | payer OTHER ==
[2024-06-25 07:15] VITALS: RESP 18; TEMP 98
--- NOTE | 2024-06-25 07:16 | ED ---
General Adult HPI - General Source: patient, RN notes reviewed Mode of arrival: ambulatory Limitations: no limitations <Tania Mcgrath - Last Filed: 06/25/24 07:20> <Taye Jones - Last Filed: 06/25/24 12:58> - General Chief complaint: Recheck/Abnormal Lab/Rx Stated complaint: Myalgia Time Seen by Provider: 06/25/24 07:15 - History of Present Illness Initial comments: Quick note: 43-year-old female with a history of sickle cell disease presents to the emergency department for evaluation of "pain all over" she states that this has been going on for the past 3 or so days. (Tania Mcgrath) This is a 43-year-old female with a past medical history that she states includes sickle cell disease. Patient comes in today because she has pain all over. I ask if she has any particular area that is painful she says no I asked her if there is any area that is painful to touch she denies. Patient does deny a headache. Patient denies numbness weakness. Patient denies difficulty breathing or shortness of breath. Patient has any nausea vomiting. Patient denies she is . Patient denies any fever or chills. Patient denies a cough patient denies a sore throat. (Taye Jones) - Related Data Home Medications Medication Instructions Recorded Confirmed Chlorthalidone [Hygroton] 25 mg PO DAILY 03/23/20 04/14/24 Cyclobenzaprine [Flexeril] 10 mg PO DAILY PRN 03/23/23 04/14/24 Ferrous Sulfate [Iron] 325 mg PO TID 03/23/23 04/14/24 amLODIPine [Norvasc] 10 mg PO DAILY 03/23/23 04/14/24 lisinopriL 40 mg PO DAILY 03/23/23 04/14/24 HYDROcodone/APAP 7.5-325MG [[place] 1 tab PO BID PRN 04/14/24 04/14/24 7.5-325] lamoTRIgine [LaMICtal] 25 mg PO DAILY 04/14/24 04/14/24 Allergies Allergy/AdvReac Type Severity Reaction Status Date / Time No Known Allergies Allergy Verified 06/25/24 07:15 Review of Systems ROS Other: All systems not noted in ROS Statement are negative. <Tania Mcgrath - Last Filed: 06/25/24 07:20> ROS Other: All systems not noted in ROS Statement are negative. <Taye Jones - Last Filed: 06/25/24 12:58> ROS Statement: Those systems with pertinent positive or pertinent negative responses have been documented in the HPI. Past Medical History Past Medical History: Hypertension Additional Past Medical History / Comment(s): sickle cell trait, anemia History of Any Multi-Drug Resistant Organisms: None Reported Past Surgical History: No Surgical Hx Reported Past Anesthesia/Blood Transfusion Reactions: No Reported Reaction Past Psychological History: Depression Smoking Status: Never smoker Past Alcohol Use History: Occasional Past Drug Use History: Marijuana <AlcidesTania - Last Filed: 06/25/24 07:20> General Exam Limitations: no limitations <DanieldaijaTania quezada - Last Filed: 06/25/24 07:20> <Taye Jones - Last Filed: 06/25/24 12:58> - General Exam Comments Initial Comments: Visual Physical Exam Vital signs reviewed General: Well-appearing, nontoxic, no acute distress. Head: Normocephalic, atraumatic Eyes: PERRLA, EOMI ENT: Airway patent Chest: Nonlabored breathing Skin: No visual rash, normal skin tone Neuro: Alert and oriented 3 Musculoskeletal: No gross abnormalities (Tania Mcgrath) GENERAL: Patient is well-developed and well-nourished. Patient is nontoxic and well- hydrated and is in no acute distress. I could not find any area of pain when I palpated her chest abdomen back or extremities. ENT: Neck is soft and supple. No significant lymphadenopathy is noted. Oropharynx is clear. Moist mucous membranes. Neck has full range of motion without eliciting any pain. EYES: The sclera were anicteric and conjunctiva were pink and moist. Extraocular movements were intact and pupils were equal round and reactive to light. Eyelids were unremarkable. PULMONARY: Unlabored respirations. Good breath sounds bilaterally. No audible rales rhonchi or wheezing was noted. CARDIOVASCULAR: There is a regular rate and rhythm without any murmurs gallops or rubs. ABDOMEN: Soft and nontender with normal bowel sounds. SKIN: Skin is clear with no lesions or rashes and otherwise unremarkable. NEUROLOGIC: Patient is alert and oriented x3. Cranial nerves II through XII are grossly intact. Motor and sensory are also intact. Normal speech, volume and content. Symmetrical smile. MUSCULOSKELETAL: Normal extremities with adequate strength and full range of motion. LYMPHATICS: No significant lymphadenopathy is noted PSYCHIATRIC: Normal psychiatric evaluation. (Taye Jones) Course Vital Signs 06/25/24 06/25/24 06/25/24 07:14 08:43 09:48 Temperature 98 F Pulse Rate 71 89 71 Respiratory 18 Rate Blood Pressure 166/116 156/91 193/113 O2 Sat by Pulse 98 95 Oximetry Medical Decision Making <Tania Mcgrath - Last Filed: 06/25/24 07:20> - Lab Data Result diagrams: 06/25/24 08:13 06/25/24 07:36 <Taye Jones - Last Filed: 06/25/24 12:58> - Medical Decision Making Quick note preformed and electronically signed by Tania Mcgrath PA-C (Hernan Mcgrath) EKG is interpreted by myself. EKG shows sinus rhythm at 65 bpm MS interval is 143 QRS is 86 QT interval is 432 QTc is 444. Patient's EKG shows no ST segment elevation or depression. Was pt. sent in by a medical professional or institution (ULISES Padilla, MILITARY TECHNOLOGY MANAGER, urgent care, hospital, or skilled nursing...) When possible be specific @ -No Did you speak to anyone other than the patient for history (EMS, parent, family, police, friend...)? What history was obtained from this source @ -No Did you review nursing and triage notes (agree or disagree)? Why? @ -I reviewed and agree with nursing and triage notes Were old charts reviewed (outside hosp., previous admission, EMS record, old EKG , old radiological studies, urgent care reports/EKG's, skilled nursing records)? Report findings @ -No old charts were reviewed Differential Diagnosis? @ -Sickle cell pain crisis, myalgias, fibromyalgia, is not an all-inclusive list EKG interpreted by me (3pts min.). @ -As above X-rays interpreted by me (1pt min.). @ -None done CT interpreted by me (1pt min.). @ -None done U/S interpreted by me (1pt. min.). @ -None done What testing was considered but not performed or refused? (CT, X-rays, U/S, l abs)? Why? @ -None What meds were considered but not given or refused? Why? @ -None Did you discuss the management of the patient with other professionals (professionals i.e. , PA, MILITARY TECHNOLOGY MANAGER, lab, RT, psych nurse, social services analyst, manager hvac, teacher, customs patrol officer, welfare case worker)? Give summary @ -No Was smoking cessation discussed for >3mins.? @ -No Was critical care preformed (if so, how long)? @ -No Were there social determinants of health that impacted care today? How? (Homelessness, low income, unemployed, alcoholism, drug addiction, transportation, low edu. Level, literacy, decrease access to med. care, [facility], rehab)? @ -No Was there de-escalation of care discussed even if they declined (Discuss DNR or withdrawal of care, Hospice)? DNR status @ -No What co-morbidities impacted this encounter? (DM, HTN, Smoking, COPD, CAD, Cancer, CVA, ARF, Chemo, Hep., AIDS, mental health diagnosis, sleep apnea, morbid obesity)? @ -None Was patient admitted / discharged? Hospital course, mention meds given and route, prescriptions, significant lab abnormalities, going to OR and other pertinent info. @ -Patient's lab work came back within normal range except for some hematuria I had a call out to Dr. Mccarthy and the patient left AMA prior to the call back from Dr. Mccarthy. I eventually did speak with Dr. Mccarthy and informed him that the patient left AMA and about her hematuria. I will was going to give the patient something for elevated blood pressure but she had left AMA Undiagnosed new problem with uncertain prognosis? @ -No Drug Therapy requiring intensive monitoring for toxicity (Heparin, Nitro, Insulin, Cardizem)? @ -No Were any procedures done? @ -No Diagnosis/symptom? @ -Sickle cell pain crisis Acute, or Chronic, or Acute on Chronic? @ -Acute Uncomplicated (without systemic symptoms) or Complicated (systemic symptoms)? @ -Complicated Side effects of treatment? @ -No Exacerbation, Progression, or Severe Exacerbation? @ -No Poses a threat to life or bodily function? How? (Chest pain, [place], [place], pneumonia, PE, COPD, DKA, ARF, appy, cholecystitis, CVA, Diverticulitis, Homicidal, Charity cidal, threat to staff... and all critical care pts) @ -No Diagnosis/symptom? @ -Hematuria Acute, or Chronic, or Acute on Chronic? @ -Acute Uncomplicated (without systemic symptoms) or Complicated (systemic symptoms)? @ -Complicated Side effects of treatment? @ -None Exacerbation, Progression, or Severe Exacerbation] @ -No Poses a threat to life or bodily function? @ -No Diagnosis/symptom? @ -Hypertensive urgency Acute, or Chronic, or Acute on Chronic? @ -Acute Uncomplicated (without systemic symptoms) or Complicated (systemic symptoms)? @ -complicated Side effects of treatment? @ -None Exacerbation, Progression, or Severe Exacerbation] @ -No Poses a threat to life or bodily function? @ -Yes this could lead to endorgan damage (Taye Jones) - Lab Data Lab Results 06/25/24 06/25/24 06/25/24 Range/Units 07:36 08:13 08:40 WBC 8.5 (3.8-10.6) k/uL RBC 3.93 (3.80-5.40) m/uL Hgb 10.1 L (11.4-16.0) gm/dL Hct 31.7 L (34.0-46.0) % MCV 80.9 (80.0-100.0) fL MCH 25.8 (25.0-35.0) pg MCHC 32.0 (31.0-37.0) g/dL RDW 17.9 H (11.5-15.5) % Plt Count 275 (150-450) k/uL MPV 9.8 Neutrophils % 38 % Lymphocytes % 27 % Monocytes % 5 % Eosinophils % 27 % Basophils % 1 % Neutrophils # 3.2 (1.3-7.7) k/uL Lymphocytes # 2.3 (1.0-4.8) k/uL Monocytes # 0.4 (0-1.0) k/uL Eosinophils # 2.3 H (0-0.7) k/uL Basophils # 0.0 (0-0.2) k/uL Manual Slide Review Performed Hypochromasia Moderate Anisocytosis Slight Microcytosis Slight Retic Count 1.3 (0.5-2.0) % PT 10.7 (10.0-12.5) sec INR 1.0 (<1.2) APTT 23.1 (22.0-30.0) sec Sodium 135 L (137-145) mmol/L Potassium 5.3 H (3.5-5.1) mmol/L Chloride 105 (98-107) mmol/L Carbon Dioxide 26 (22-30) mmol/L Anion Gap 4 mmol/L BUN 9 (7-17) mg/dL Creatinine 0.55 (0.52-1.04) mg/dL Est GFR (CKD-EPI)AfAm >90 (>60 ml/min/1.73 sqM) Est GFR (CKD-EPI)NonAf >90 (>60 ml/min/1.73 sqM) Glucose 103 H (74-99) mg/dL Calcium 9.3 (8.4-10.2) mg/dL Total Bilirubin 0.7 (0.2-1.3) mg/dL AST 34 (14-36) U/L ALT 14 (4-34) U/L Alkaline Phosphatase 34 L (38-126) U/L Total Protein 7.8 (6.3-8.2) g/dL Albumin 4.3 (3.5-5.0) g/dL Urine Color Urine Appearance (Clear) Urine pH (5.0-8.0) Ur Specific [place] (1.001-1.035) Urine Protein (Negative) Urine Glucose (UA) (Negative) Urine Ketones (Negative) Urine Blood (Negative) Urine Nitrite (Negative) Urine Bilirubin (Negative) Urine Urobilinogen (<2.0) mg/dL Ur Leukocyte Esterase (Negative) Urine RBC (0-5) /hpf Urine WBC (0-5) /hpf Ur Squamous Epith Cells (0-4) /hpf Urine Mucus (None) /hpf Urine HCG, Qual (Not Detectd) 06/25/24 06/25/24 Range/Units 08:55 08:55 WBC (3.8-10.6) k/uL RBC (3.80-5.40) m/uL Hgb (11.4-16.0) gm/dL Hct (34.0-46.0) % MCV (80.0-100.0) fL MCH (25.0-35.0) pg MCHC (31.0-37.0) g/dL RDW (11.5-15.5) % Plt Count (150-450) k/uL MPV Neutrophils % % Lymphocytes % % Monocytes % % Eosinophils % % Basophils % % Neutrophils # (1.3-7.7) k/uL Lymphocytes # (1.0-4.8) k/uL Monocytes # (0-1.0) k/uL Eosinophils # (0-0.7) k/uL Basophils # (0-0.2) k/uL Manual Slide Review Hypochromasia Anisocytosis Microcytosis Retic Count (0.5-2.0) % PT (10.0-12.5) sec INR (<1.2) APTT (22.0-30.0) sec Sodium (137-145) mmol/L Potassium (3.5-5.1) mmol/L Chloride (98-107) mmol/L Carbon Dioxide (22-30) mmol/L Anion Gap mmol/L BUN (7-17) mg/dL Creatinine (0.52-1.04) mg/dL Est GFR (CKD-EPI)AfAm (>60 ml/min/1.73 sqM) Est GFR (CKD-EPI)NonAf (>60 ml/min/1.73 sqM) Glucose (74-99) mg/dL Calcium (8.4-10.2) mg/dL Total Bilirubin (0.2-1.3) mg/dL AST (14-36) U/L ALT (4-34) U/L Alkaline Phosphatase (38-126) U/L Total Protein (6.3-8.2) g/dL Albumin (3.5-5.0) g/dL Urine Color Colorless Urine Appearance Clear (Clear) Urine pH 7.5 (5.0-8.0) Ur Specific [place] 1.012 (1.001-1.035) Urine Protein Negative (Negative) Urine Glucose (UA) Negative (Negative) Urine Ketones Negative (Negative) Urine Blood Moderate H (Negative) Urine Nitrite Negative (Negative) Urine Bilirubin Negative (Negative) Urine Urobilinogen <2.0 (<2.0) mg/dL Ur Leukocyte Esterase Negative (Negative) Urine RBC 85 H (0-5) /hpf Urine WBC 2 (0-5) /hpf Ur Squamous Epith Cells 1 (0-4) /hpf Urine Mucus Rare H (None) /hpf Urine HCG, Qual Not Detected (Not Detectd) Disposition <Tania Mcgrath - Last Filed: 06/25/24 07:20> Time of Disposition: 12:26 <Taye Jones - Last Filed: 06/25/24 12:58> Clinical Impression: Sickle cell pain crisis, Hematuria, Hypertensive urgency Disposition: LEFT AGAINST MEDICAL ADVICE Condition: Undetermined Referrals: Roderick Mccarthy MD [Primary Care Provider] - 1-2 days
[2024-06-25] MEDS: SODIUM CHLORIDE 0.9% 1,000 ML IV ONE (08:03)
[2024-06-25 08:05] LABS: ALT 14 U/L (4-34); African American GFR (CKD) >90 (>60 ml/min/1.73 sqM); Anion Gap 4 mmol/L; Blood Urea Nitrogen 9 mg/dL (7-17); Calcium 9.3 mg/dL (8.4-10.2); Carbon Dioxide 26 mmol/L (22-30); Chloride 105 mmol/L (98-107); Glucose 103 mg/dL (74-99); Non-African American GFR(CKD) >90 (>60 ml/min/1.73 sqM); Sodium 135 mmol/L (137-145)
--- NOTE | 2024-06-25 08:05 | XR ---
EXAMINATION TYPE: XR chest 2V DATE OF EXAM: 06/25/2024 CLINICAL HISTORY: Pain TECHNIQUE: Frontal and lateral views of the chest are obtained. COMPARISON: 04/17/2024 FINDINGS: There is no focal air space opacity, pleural effusion, or pneumothorax seen. The cardiac silhouette size is within normal limits. The osseous structures are intact. IMPRESSION: No acute cardiopulmonary process. [facility], , 06/25/2024 8:02 AM
[2024-06-25 08:09] LABS: Potassium 5.3 mmol/L (3.5-5.1); Total Protein 7.8 g/dL (6.3-8.2)
[2024-06-25 08:10] LABS: AST 34 U/L (14-36); Albumin 4.3 g/dL (3.5-5.0); Alkaline Phosphatase 34 U/L (38-126); Total Bilirubin 0.7 mg/dL (0.2-1.3)
[2024-06-25 08:41] LABS: Anisocytosis Slight; Basophils % (A) 1 %; Eosinophils # (A) 2.3 k/uL (0-0.7); Eosinophils % (A) 27 %; HCT 31.7 % (34.0-46.0); HGB 10.1 gm/dL (11.4-16.0); Hypochromasia Moderate; Lymphocytes # (A) 2.3 k/uL (1.0-4.8); Lymphocytes % (A) 27 %; MCH 25.8 pg (25.0-35.0); MCV 80.9 fL (80.0-100.0); Mean Platelet Volume 9.8; Microcytosis Slight; Monocytes # (A) 0.4 k/uL (0-1.0); Monocytes % (A) 5 %; Neutrophils # (A) 3.2 k/uL (1.3-7.7); Neutrophils % (A) 38 %; Platelet Count 275 k/uL (150-450); RBC 3.93 m/uL (3.80-5.40); RDW 17.9 % (11.5-15.5); WBC 8.5 k/uL (3.8-10.6)
[2024-06-25 09:06] LABS: Appearance,Urine Clear (Clear); Bilirubin,Urine Negative (Negative); Blood,Urine Moderate (Negative); Color,Urine Colorless; Glucose,Urine (UA) Negative (Negative); Ketones,Urine Negative (Negative); Leukocyte Esterase,Urine Negative (Negative); Mucus,Urine Rare /hpf; Nitrite,Urine Negative (Negative); PH, Urine 7.5 (5.0-8.0); Protein,Urine Negative (Negative); RBC,Urine 85 /hpf (0-5); Specific Gravity,Urine 1.012 (1.001-1.035); Squamous Epithelial Cell,Urine 1 /hpf (0-4); Urobilinogen,Urine <2.0 mg/dL (<2.0); WBC,Urine 2 /hpf (0-5)
[2024-06-25 09:12] LABS: Partial Thromboplastin Time 23.1 sec (22.0-30.0); Prothrombin Time 10.7 sec (10.0-12.5)
[2024-06-25 09:14] LABS: Reticulocyte % 1.3 % (0.5-2.0)
[2024-06-25] MEDS: HYDROmorphone 0.5 MG/0.5 ML SYRINGE IVP STA (09:14)
[2024-06-25 09:49] VITALS: BP 193/113; PULSE 71
== END 2024-06-25 12:22 | disposition left against medical advice (07) ==
LOC: EC 06:59
DX: D57.00 Hb-SS disease with crisis, unspecified (principal); R31.9 Hematuria, unspecified; I16.0 Hypertensive urgency; Z53.29 Procedure and treatment not carried out because of patient's decision for other reasons
CPT/HCPCS: 36415; 80053; 85025; 85610; 85045; 85730; 81001; 81025; 71046; 99284; 96374; 96361 ×2; J1171

== ENCOUNTER 2024-08-31 19:23 | Emergency (ER) | payer OTHER ==
--- NOTE | 2024-08-31 19:50 | ED ---
General Adult HPI - General Source: patient Mode of arrival: EMS Limitations: no limitations <Aki Gutierrez - Last Filed: 08/31/24 19:45> <Goyo Ambrocio - Last Filed: 08/31/24 21:55> - General Chief complaint: Upper Respiratory Infection Stated complaint: Sickle Cell, Cough congestion Time Seen by Provider: 08/31/24 19:45 - History of Present Illness Initial comments: 43-year-old female with history of sickle cell disease presenting with chief complaint of cough nausea and vomiting. States that she has had this cough for about 3 weeks. She recently started experiencing nausea and vomiting. States that when she is sick her sickle cell flares up and she has been having pain all over her body. (Aki Gutierrez) - Related Data Home Medications Medication Instructions Recorded Confirmed Chlorthalidone [Hygroton] 25 mg PO DAILY 03/23/20 04/14/24 Cyclobenzaprine [Flexeril] 10 mg PO DAILY PRN 03/23/23 04/14/24 Ferrous Sulfate [Iron] 325 mg PO TID 03/23/23 04/14/24 amLODIPine [Norvasc] 10 mg PO DAILY 03/23/23 04/14/24 lisinopriL 40 mg PO DAILY 03/23/23 04/14/24 HYDROcodone/APAP 7.5-325MG [[place] 1 tab PO BID PRN 04/14/24 04/14/24 7.5-325] lamoTRIgine [LaMICtal] 25 mg PO DAILY 04/14/24 04/14/24 Previous Rx's Medication Instructions Recorded Oseltamivir [Tamiflu] 75 mg PO Q12HR 5 Days #10 cap 08/31/24 Allergies Allergy/AdvReac Type Severity Reaction Status Date / Time No Known Allergies Allergy Verified 08/31/24 19:42 Review of Systems ROS Other: All systems not noted in ROS Statement are negative. <Aki Gutierrez - Last Filed: 08/31/24 19:45> ROS Other: All systems not noted in ROS Statement are negative. <Goyo Ambrocio - Last Filed: 08/31/24 21:55> ROS Statement: Those systems with pertinent positive or pertinent negative responses have been documented in the HPI. Past Medical History Past Medical History: Hypertension Additional Past Medical History / Comment(s): sickle cell trait, anemia History of Any Multi-Drug Resistant Organisms: None Reported Past Surgical History: No Surgical Hx Reported Past Anesthesia/Blood Transfusion Reactions: No Reported Reaction Past Psychological History: Depression Smoking Status: Never smoker Past Alcohol Use History: Occasional Past Drug Use History: Marijuana <Aki Gutierrez - Last Filed: 08/31/24 19:45> General Exam Limitations: no limitations <Aki Gutierrez - Last Filed: 08/31/24 19:45> General appearance: alert, in no apparent distress Head exam: Present: atraumatic, normocephalic Eye exam: Present: normal appearance, PERRL ENT exam: Present: normal exam Neck exam: Present: normal inspection. Absent: tenderness, meningismus Respiratory exam: Present: normal lung sounds bilaterally. Absent: respiratory distress, wheezes Cardiovascular Exam: Present: normal rhythm, tachycardia GI/Abdominal exam: Present: soft. Absent: distended, tenderness, guarding Neurological exam: Present: alert, oriented X3, CN II-XII intact. Absent: motor sensory deficit Psychiatric exam: Present: normal affect, normal mood Skin exam: Present: warm, dry, intact. Absent: cyanosis, diaphoretic <Goyo Ambrocio - Last Filed: 08/31/24 21:55> - General Exam Comments Initial Comments: Visual Physical Exam Vital signs reviewed General: Well-appearing, nontoxic, no acute distress. Head: Normocephalic, atraumatic Eyes: PERRLA, EOMI ENT: Airway patent Chest: Nonlabored breathing Skin: No visual rash, normal skin tone Neuro: Alert and oriented 3 Musculoskeletal: No gross abnormalities (Aki Gutierrez) Course Vital Signs 08/31/24 08/31/24 19:40 21:23 Temperature 99.1 F Pulse Rate 131 H 107 H Respiratory 20 18 Rate Blood Pressure 121/87 122/90 O2 Sat by Pulse 98 99 Oximetry Medical Decision Making <Aki Gutierrez - Last Filed: 08/31/24 19:45> - Lab Data Result diagrams: 08/31/24 20:45 08/31/24 20:45 <Goyo Ambrocio - Last Filed: 08/31/24 21:55> - Medical Decision Making I performed the quick note portion of this visit, electronically signed Aki Brar PA-C) Was pt. sent in by a medical professional or institution (ULISES Padilla, PLANT BIOLOGY PROFESSOR, urgent care, hospital, or [facility]...) When possible be specific @ -No Did you speak to anyone other than the patient for history (EMS, parent, family, police, friend...)? What history was obtained from this source @ -No Did you review nursing and triage notes (agree or disagree)? Why? @ -I reviewed and agree with nursing and triage notes Were old charts reviewed (outside hosp., previous admission, EMS record, old EKG, old radiological studies, urgent care reports/EKG's, [facility] records)? Report findings @ -No old charts were reviewed Differential Weakness: Hypoglycemia, shock, sepsis, hyponatremia, anemia, infection, [place], ETOH, adverse medicine reaction, overdose, stroke, this is not meant to be an all-inclusive list. EKG interpreted by me (3pts min.). @Sinus tach rate of 105, [place] interval 140, QRS duration 95, QTc 381 diffuse T wave inversion no ST segment elevation. X-rays interpreted by me (1pt min.). @Chest x-ray negative for acute cardiopulmonary findings CT interpreted by me (1pt min.). @ -None done U/S interpreted by me (1pt. min.). @ -None done What testing was considered but not performed or refused? (CT, X-rays, U/S, labs)? Why? @ -None What meds were considered but not given or refused? Why? @ -None Did you discuss the management of the patient with other professionals (professionals i.e. ULISES Padilla, PLANT BIOLOGY PROFESSOR, lab, RT, psych nurse, older adult social work specialist, head of history, teacher, weapons electrical engineering officer, rifle case repairer)? Give summary @ -No Was smoking cessation discussed for >3mins.? @ -No Was critical care preformed (if so, how long)? @ -No Were there social determinants of health that impacted care today? How? (Homelessness, low income, unemployed, alcoholism, drug addiction, transportation, low edu. Level, literacy, decrease access to med. care, fpc, rehab)? @ -No Was there de-escalation of care discussed even if they declined (Discuss DNR or withdrawal of care, Hospice)? DNR status @ -No What co-morbidities impacted this encounter? (DM, HTN, Smoking, COPD, CAD, Cancer, CVA, ARF, Chemo, Hep., AIDS, mental health diagnosis, sleep apnea, morbid obesity)? @ -[Sickle cell anemia Was patient admitted / discharged? Hospital course, mention meds given and route, prescriptions, significant lab abnormalities, going to OR and other pertinent info. @ -43-year-old female with myalgia, cough, congestion, patient testing positive for influenza A. Given IV fluids, pain medication and started on Tamiflu. Patient has stable hemoglobin. Her potassium 3.1 which is replaced. Patient feels significantly better on reevaluation. She is stable for discharge with return parameters. Undiagnosed new problem with uncertain prognosis? @ -[No Drug Therapy requiring intensive monitoring for toxicity (Heparin, Nitro, Insulin, Cardizem)? @ -No Were any procedures done? @ -No Diagnosis/symptom? @ -[Influenza A Acute, or Chronic, or Acute on Chronic? @ -Acute Uncomplicated (without systemic symptoms) or Complicated (systemic symptoms)? @ -[default Side effects of treatment? @ -No Exacerbation, Progression, or Severe Exacerbation? @ -No Poses a threat to life or bodily function? How? (Chest pain, [place], [place], pneumonia, PE, COPD, DKA, ARF, appy, cholecystitis, CVA, Diverticulitis, Homicidal, Suicidal, threat to staff... and all critical care pts) @Low risk at this time (Goyo Ambrocio) - Lab Data Lab Results 08/31/24 08/31/24 08/31/24 Range/Units 20:45 20:45 20:45 WBC 4.5 (3.8-10.6) k/uL RBC 4.89 (3.80-5.40) m/uL Hgb 11.6 (11.4-16.0) gm/dL Hct 36.7 (34.0-46.0) % MCV 75.2 L (80.0-100.0) fL MCH 23.8 L (25.0-35.0) pg MCHC 31.6 (31.0-37.0) g/dL RDW 18.0 H (11.5-15.5) % Plt Count 287 (150-450) k/uL MPV 10.0 Neutrophils % 48 % Lymphocytes % 32 % Monocytes % 6 % Eosinophils % 9 % Basophils % 1 % Neutrophils # 2.2 (1.3-7.7) k/uL Lymphocytes # 1.4 (1.0-4.8) k/uL Monocytes # 0.3 (0-1.0) k/uL Eosinophils # 0.4 (0-0.7) k/uL Basophils # 0.0 (0-0.2) k/uL Hypochromasia Slight Anisocytosis Slight Microcytosis Moderate Retic Count 0.8 (0.5-2.0) % Sodium 135 L (137-145) mmol/L Potassium 3.1 L (3.5-5.1) mmol/L Chloride 100 (98-107) mmol/L Carbon Dioxide 26 (22-30) mmol/L Anion Gap 9 mmol/L BUN 14 (7-17) mg/dL Creatinine 0.78 (0.52-1.04) mg/dL Est GFR (CKD-EPI)AfAm >90 (>60 ml/min/1.73 sqM) Est GFR (CKD-EPI)NonAf >90 (>60 ml/min/1.73 sqM) Glucose 108 H (74-99) mg/dL Calcium 9.9 (8.4-10.2) mg/dL Total Bilirubin 0.3 (0.2-1.3) mg/dL AST 30 (14-36) U/L ALT 23 (4-34) U/L Alkaline Phosphatase 55 (38-126) U/L Total Protein 7.9 (6.3-8.2) g/dL Albumin 4.3 (3.5-5.0) g/dL Amylase 53 (30-110) U/L Lipase 108 (23-300) U/L Influenza Type A (PCR) Detected A (Not Detectd) Influenza Type B (PCR) Not Detected (Not Detectd) RSV (PCR) Not Detected (Not Detectd) SARS-CoV-2 (PCR) Not Detected (Not Detectd) Disposition <Aki Gutierrez - Last Filed: 08/31/24 19:45> Is patient prescribed a controlled substance at d/c from ED?: No Time of Disposition: 21:54 <Goyo Ambrocio - Last Filed: 08/31/24 21:55> Clinical Impression: Influenza Disposition: HOME SELF-CARE Condition: Good Instructions (If sedation given, give patient instructions): Influenza (ED) Prescriptions: Oseltamivir [Tamiflu] 75 mg PO Q12HR 5 Days #10 cap Referrals: Roderick Mccarthy MD [Primary Care Provider] - 1-2 days
[2024-08-31] MEDS: ONDANSETRON 4 MG/2 ML VIAL IVP STA (20:46)
[2024-08-31] MEDS: SODIUM CHLORIDE 0.9% 1,000 ML IV STA (20:46)
[2024-08-31 20:58] LABS: Anisocytosis Slight; Basophils % (A) 1 %; Eosinophils # (A) 0.4 k/uL (0-0.7); Eosinophils % (A) 9 %; HCT 36.7 % (34.0-46.0); HGB 11.6 gm/dL (11.4-16.0); Hypochromasia Slight; Lymphocytes # (A) 1.4 k/uL (1.0-4.8); Lymphocytes % (A) 32 %; MCH 23.8 pg (25.0-35.0); MCHC 31.6 g/dL (31.0-37.0); MCV 75.2 fL (80.0-100.0); Microcytosis Moderate; Monocytes # (A) 0.3 k/uL (0-1.0); Monocytes % (A) 6 %; Neutrophils # (A) 2.2 k/uL (1.3-7.7); Neutrophils % (A) 48 %; Platelet Count 287 k/uL (150-450); RBC 4.89 m/uL (3.80-5.40); WBC 4.5 k/uL (3.8-10.6)
[2024-08-31 21:01] LABS: Reticulocyte % 0.8 % (0.5-2.0)
--- NOTE | 2024-08-31 21:05 | XR ---
EXAMINATION TYPE: XR chest 2V DATE OF EXAM: 08/31/2024 8:35 PM COMPARISON: Chest radiographs from 06/25/2024 CLINICAL INDICATION: Female, 43 years old with history of cough; [facility] TECHNIQUE: XR chest 2V Frontal and lateral views of the chest. FINDINGS: Lungs/Pleura: There is no evidence of pleural effusion, focal consolidation, or pneumothorax. Pulmonary vascularity: Unremarkable. Heart/mediastinum: Cardiomediastinal silhouette is unremarkable. Musculoskeletal: No acute osseous pathology. IMPRESSION: No acute cardiopulmonary disease/process. [facility], , 08/31/2024 9:03 PM
[2024-08-31 21:20] LABS: ALT 23 U/L (4-34); AST 30 U/L (14-36); African American GFR (CKD) >90 (>60 ml/min/1.73 sqM); Albumin 4.3 g/dL (3.5-5.0); Alkaline Phosphatase 55 U/L (38-126); Amylase 53 U/L (30-110); Anion Gap 9 mmol/L; Blood Urea Nitrogen 14 mg/dL (7-17); Calcium 9.9 mg/dL (8.4-10.2); Carbon Dioxide 26 mmol/L (22-30); Chloride 100 mmol/L (98-107); Glucose 108 mg/dL (74-99); Lipase 108 U/L (23-300); Non-African American GFR(CKD) >90 (>60 ml/min/1.73 sqM); Potassium 3.1 mmol/L (3.5-5.1); Sodium 135 mmol/L (137-145); Total Bilirubin 0.3 mg/dL (0.2-1.3); Total Protein 7.9 g/dL (6.3-8.2)
[2024-08-31] MEDS: MORPHINE SULFATE 4 MG/ML SYRINGE IVP STA (21:27)
[2024-08-31 21:41] LABS: Influenza A Detected (Not Detectd); Influenza B Not Detected (Not Detectd); RSV Not Detected (Not Detectd)
[2024-08-31] MEDS: OSELTAMIVIR 75 MG CAP PO STA (22:09)
[2024-08-31] MEDS: KETOROLAC 15 MG/ML 1 ML VIAL IVP STA (22:09)
[2024-08-31] MEDS: POTASSIUM CHLORIDE ER 20 MEQ TAB.ER PO STA (22:09)
[2024-08-31 22:41] VITALS: BP 126/74; PULSE 98; RESP 16; TEMP 98.8
== END 2024-08-31 22:41 | disposition home or self-care (01) ==
LOC: EC 19:23
DX: J11.1 Influenza due to unidentified influenza virus with other respiratory manifestations (principal); B95.0 Streptococcus, group A, as the cause of diseases classified elsewhere; D57.1 Sickle-cell disease without crisis
CPT/HCPCS: 36415; 93005; 80053; 82150; 83690; 84484; 85025; 85045; 87636; 71046; 99284; 96374; 96375; 96361; J2270; J2405; J1885

== ENCOUNTER 2024-09-29 05:48 | Emergency (ER) | payer OTHER ==
[2024-09-29 05:54] VITALS: RESP 18
[2024-09-29] MEDS: SODIUM CHLORIDE 0.9% 1,000 ML IV ONE (06:29)
[2024-09-29 06:31] LABS: Anisocytosis Slight; Basophils % (A) 1 %; Eosinophils # (A) 1.7 k/uL (0-0.7); Eosinophils % (A) 19 %; HCT 36.6 % (34.0-46.0); HGB 10.7 gm/dL (11.4-16.0); Hypochromasia Moderate; Lymphocytes # (A) 2.5 k/uL (1.0-4.8); Lymphocytes % (A) 30 %; MCHC 29.1 g/dL (31.0-37.0); MCV 78.9 fL (80.0-100.0); Microcytosis Slight; Monocytes # (A) 0.5 k/uL (0-1.0); Monocytes % (A) 6 %; Neutrophils # (A) 3.6 k/uL (1.3-7.7); Neutrophils % (A) 42 %; Platelet Count 330 k/uL (150-450); RBC 4.64 m/uL (3.80-5.40); RDW 19.3 % (11.5-15.5); Reticulocyte % 1.3 % (0.5-2.0); WBC 8.6 k/uL (3.8-10.6)
[2024-09-29] MEDS: ONDANSETRON 4 MG/2 ML VIAL IVP STA (06:31)
--- NOTE | 2024-09-29 06:31 | XR ---
EXAMINATION TYPE: XR chest 2V DATE OF EXAM: 09/29/2024 6:21 AM COMPARISON: Chest x-ray August 31, 2024 CLINICAL INDICATION: Female, 43 years old with history of Chest Pain, TECHNIQUE: Frontal and lateral views of the chest are obtained. FINDINGS: Overlying EKG leads are present on current study. There is no focal air space opacity, ple ural effusion, or pneumothorax seen. The cardiac silhouette size remains within normal limits. The osseous structures are intact. IMPRESSION: No acute process. No significant change from most recent prior. [facility], , 09/29/2024 6:28 AM
[2024-09-29] MEDS: HYDROmorphone 0.5 MG/0.5 ML SYRINGE IVP STA (06:32)
[2024-09-29] MEDS: KETOROLAC 15 MG/ML 1 ML VIAL IVP STA (06:33)
--- NOTE | 2024-09-29 06:39 | ED ---
Chest Pain HPI - General Chief Complaint: Chest Pain Stated Complaint: L Leg Pain, Chest Discomfort Time Seen by Provider: 09/29/24 06:03 Source: patient, EMS, RN notes reviewed Mode of arrival: EMS Limitations: no limitations - History of Present Illness Initial Comments: 43-year-old female presents emergency department complaint of chest pain, left leg pain. Patient states she been having left leg pain for months on and off worsening pain states feels slightly different than her typical sciatica. She denies any bowel, bladder incontinence retention no saddle anesthesias. She states she is having all of her pain including her chest more consistent with sickle cell issues. She states she feels like she cannot control the pain at this time. She denies any shortness of breath no nausea vomiting. No fevers or chills no other associated symptoms. - Related Data Home Medications Medication Instructions Recorded Confirmed Chlorthalidone [Hygroton] 25 mg PO DAILY 03/23/20 04/14/24 Cyclobenzaprine [Flexeril] 10 mg PO DAILY PRN 03/23/23 04/14/24 Ferrous Sulfate [Iron] 325 mg PO TID 03/23/23 04/14/24 amLODIPine [Norvasc] 10 mg PO DAILY 03/23/23 04/14/24 lisinopriL 40 mg PO DAILY 03/23/23 04/14/24 HYDROcodone/APAP 7.5-325MG [[place] 1 tab PO BID PRN 04/14/24 04/14/24 7.5-325] lamoTRIgine [LaMICtal] 25 mg PO DAILY 04/14/24 04/14/24 Previous Rx's Medication Instructions Recorded Oseltamivir [Tamiflu] 75 mg PO Q12HR 5 Days #10 cap 08/31/24 Allergies Allergy/AdvReac Type Severity Reaction Status Date / Time No Known Allergies Allergy Verified 09/29/24 05:54 Review of Systems ROS Statement: Those systems with pertinent positive or pertinent negative responses have been documented in the HPI. ROS Other: All systems not noted in ROS Statement are negative. EKG Findings - EKG Comments: EKG Findings:: EKG performed at 5: 57 sinus rhythm rate 95 SD 134 QRS 85 QT/QTc 353/406 noted diffuse T wave inversions seen on prior EKG 08/31/2024 - EKG Results: EKG: interpreted by ERMD Past Medical History Past Medical History: Hypertension Additional Past Medical History / Comment(s): sickle cell trait, anemia History of Any Multi-Drug Resistant Organisms: None Reported Past Surgical History: No Surgical Hx Reported Past Anesthesia/Blood Transfusion Reactions: No Reported Reaction Past Psychological History: Depression Smoking Status: Never smoker Past Alcohol Use History: Occasional Past Drug Use History: Marijuana General Exam Limitations: no limitations General appearance: alert, in no apparent distress Head exam: Present: atraumatic, normocephalic, normal inspection Eye exam: Present: normal appearance, PERRL, EOMI. Absent: scleral icterus, conjunctival injection, periorbital swelling ENT exam: Present: normal exam, normal oropharynx, mucous membranes moist Neck exam: Present: normal inspection, full ROM. Absent: tenderness, meningismus, lymphadenopathy Respiratory exam: Present: normal lung sounds bilaterally. Absent: respiratory distress, wheezes, rales, rhonchi, stridor Cardiovascular Exam: Present: regular rate, normal rhythm, normal heart sounds. Absent: systolic murmur, diastolic murmur, rubs, gallop, clicks GI/Abdominal exam: Present: soft, normal bowel sounds. Absent: distended, tenderness, guarding, rebound, rigid Extremities exam: Present: other (Lower extremity strength equal bilaterally, neurovascular intact with equal pulses) Neurological exam: Present: alert, reflexes normal. Absent: motor sensory deficit Skin exam: Present: warm, dry, intact, normal color. Absent: rash Course Vital Signs 09/29/24 05:49 Temperature 98.4 F Pulse Rate 98 Respiratory 18 Rate Blood Pressure 117/71 O2 Sat by Pulse 99 Oximetry Chest Pain MDM - MDM Was pt. sent in by a medical professional or institution (Dr. PA, SUPERVIS[employer], urgent care, hospital, or half-way...) When possible be specific @ -No Did you speak to anyone other than the patient for history (EMS, parent, family, police, friend...)? What history was obtained from this source @ -No Did you review nursing and triage notes (agree or disagree)? Why? @ -I reviewed and agree with nursing and triage notes Were old charts reviewed (outside hosp., previous admission, EMS record, old EKG, old radiological studies, urgent care reports/EKG's, half-way records)? Report findings @ -No old charts were reviewed Differential Diagnosis (chest pain, altered mental status, abdominal pain women, abdominal pain men, vaginal bleeding, weakness, fever, dyspnea, syncope, headache, dizziness, GI bleed, back pain, seizure, CVA, palpatations, mental health, musculoskeletal)? @ -Differential Chest Pain: Stable Angina, Unstable Angina, STEMI, NSTEMI Aortic Dissection, Pneumothorax, Musculoskeletal, Esophageal Spasm GERD, Cholecystitis, Pancreatitis, Zoster, this is not meant to be an all-inclusive list. EKG interpreted by me (3pts min.). @ -As above X-rays interpreted by me (1pt min.). @ -Chest x-ray shows no acute cardiopulmonary process CT interpreted by me (1pt min.). @ -None done U/S interpreted by me (1pt. min.). @ -Ultrasound venous Doppler left leg negative for DVT What testing was considered but not performed or refused? (CT, X-rays, U/S, labs)? Why? @ -None What meds were considered but not given or refused? Why? @ -None Did you discuss the management of the patient with other professionals (professionals i.e. , PA, [employer], lab, RT, psych nurse, social media developer, pulp drier firer, teacher, planned giving officer, outsole caser)? Give summary @ -No Was smoking cessation discussed for >3mins.? @ -No Was critical care preformed (if so, how long)? @ -No Were there social determinants of health that impacted care today? How? (Homelessness, low income, unemployed, alcoholism, drug addiction, transportation, low edu. Level, literacy, decrease access to med. care, fdc, rehab)? @ -No Was there de-escalation of care discussed even if they declined (Discuss DNR or withdrawal of care, Hospice)? DNR status @ -No What co-morbidities impacted this encounter? (DM, HTN, Smoking, COPD, CAD, Cancer, CVA, ARF, Chemo, Hep., AIDS, mental health diagnosis, sleep apnea, morbid obesity)? @ -Sickle cell disease Was patient admitted / discharged? Hospital course, mention meds given and route, prescriptions, significant lab abnormalities, going to OR and other pertinent info. @ -Discharge patient's pain is improved. Patient had diffuse pain left leg pain EKG chest x-ray and ultrasound were unremarkable. Patient pain was consistent with prior sickle cell issues. Patient states that she feels comfortable discharge she was offered admission patient declined. Undiagnosed new problem with uncertain prognosis? @ -No Drug Therapy requiring intensive monitoring for toxicity (Heparin, Nitro, Insulin, Cardizem)? @ -No Were any procedures done? @ -No Diagnosis/symptom? @ -Lumbar radiculopathy, sickle cell pain with anemia Acute, or Chronic, or Acute on Chronic? @Acute Uncomplicated (without systemic symptoms) or Complicated (systemic symptoms)? @ -Complicated Side effects of treatment? @ -No Exacerbation, Progression, or Severe Exacerbation? @ -No Poses a threat to life or bodily function? How? (Chest pain, [place], [place], pneumonia, PE, COPD, DKA, ARF, appy, cholecystitis, CVA, Diverticulitis, Homicidal, Suicidal, threat to staff... and all critical care pts) @ -No Disposition Clinical Impression: Lumbar radiculopathy, Sickle cell anemia with pain Disposition: HOME SELF-CARE Condition: Stable Instructions (If sedation given, give patient instructions): Sickle Cell Crisis (ED) Additional Instructions: Please return to the Emergency Department if symptoms worsen or any other concerns. Is patient prescribed a controlled substance at d/c from ED?: No Referrals: Roderick Mccarthy MD [Primary Care Provider] - 1-2 days Time of Disposition: 07:54
[2024-09-29 06:47] LABS: INR 0.9 (<1.2); Partial Thromboplastin Time 22.5 sec (22.0-30.0); Prothrombin Time 10.2 sec (10.0-12.5)
[2024-09-29 06:52] LABS: ALT 15 U/L (4-34); AST 21 U/L (14-36); African American GFR (CKD) >90 (>60 ml/min/1.73 sqM); Albumin 4.3 g/dL (3.5-5.0); Alkaline Phosphatase 44 U/L (38-126); Anion Gap 7 mmol/L; Blood Urea Nitrogen 20 mg/dL (7-17); Calcium 9.9 mg/dL (8.4-10.2); Carbon Dioxide 25 mmol/L (22-30); Chloride 104 mmol/L (98-107); Glucose 100 mg/dL (74-99); Magnesium 2.2 mg/dL (1.6-2.3); Non-African American GFR(CKD) >90 (>60 ml/min/1.73 sqM); Potassium 3.8 mmol/L (3.5-5.1); Sodium 136 mmol/L (137-145); Total Bilirubin 0.4 mg/dL (0.2-1.3); Total Protein 7.4 g/dL (6.3-8.2)
[2024-09-29 07:28] LABS: Influenza A Not Detected (Not Detectd); Influenza B Not Detected (Not Detectd); RSV Not Detected (Not Detectd)
--- NOTE | 2024-09-29 07:46 | US ---
EXAMINATION TYPE: US venous doppler duplex LE LT DATE OF EXAM: 09/29/2024 7:20 AM COMPARISON: NONE CLINICAL INDICATION: Female, 43 years old with history of pain; No hx of DVT. Patient does not take b lood thinners. Pain x a few months. Pain has gotten worse x 1 week. TECHNIQUE: The lower extremity deep venous system is examined utilizing real time linear array sonog richi with graded compression, color doppler sonography, and spectral doppler. SIDE PERFORMED: Left FINDINGS: VESSELS IMAGED: Common Femoral Vein Deep Femoral Vein Greater Saphenous Vein * Femoral Vein Popliteal Vein Small Saphenous Vein * Proximal Calf Veins (* superficial vessels) . Left Leg: No evidence of DVT. Color Doppler imaging shows patency of the vessels. Scanned left lateral calf at patient's area of concern. No abnormalities at this time. IMPRESSION: 1. No evidence of deep vein thrombosis of the left lower extremity. [facility], , 09/29/2024 7:44 AM
[2024-09-29 08:04] VITALS: BP 107/84; PULSE 74; TEMP 97.8
== END 2024-09-29 08:05 | disposition home or self-care (01) ==
LOC: EC 05:48
DX: M54.16 Radiculopathy, lumbar region (principal); D57.00 Hb-SS disease with crisis, unspecified
CPT/HCPCS: 36415; 93005; 80053; 83735; 84484; 85025; 85610; 85045; 85730; 87636; 71046; 93971; 99285; 96374; 96375 ×2; 96361; J2405; J1885; J1171

== ENCOUNTER 2024-10-15 12:47 | Emergency (ER) | payer OTHER ==
[2024-10-15] MEDS: HYDROmorphone 1 MG/ML 1 ML SYRINGE IM STA (13:42)
[2024-10-15 14:10] LABS: Influenza A Not Detected (Not Detectd); Influenza B Not Detected (Not Detectd); RSV Not Detected (Not Detectd)
--- NOTE | 2024-10-15 14:31 | ED ---
Recheck HPI - General Chief Complaint: Recheck/Abnormal Lab/Rx Stated Complaint: whole body aches Time Seen by Provider: 10/15/24 12:52 Source: patient, RN notes reviewed Mode of arrival: ambulatory Limitations: no limitations - History of Present Illness Initial Comments: 33-year-old female presents emergency department chief complaint body pain. Patient states started last few days she states she been working too much she states that she was told years ago that she had sickle cell trait. Patient was admitted here in the past. Denies any chest pain shortness of breath states generalized body pain possible fever with URI symptoms. - Related Data Home Medications Medication Instructions Recorded Confirmed Chlorthalidone [Hygroton] 25 mg PO DAILY 03/23/20 04/14/24 Cyclobenzaprine [Flexeril] 10 mg PO DAILY PRN 03/23/23 04/14/24 Ferrous Sulfate [Iron] 325 mg PO TID 03/23/23 04/14/24 amLODIPine [Norvasc] 10 mg PO DAILY 03/23/23 04/14/24 lisinopriL 40 mg PO DAILY 03/23/23 04/14/24 HYDROcodone/APAP 7.5-325MG [[place] 1 tab PO BID PRN 04/14/24 04/14/24 7.5-325] lamoTRIgine [LaMICtal] 25 mg PO DAILY 04/14/24 04/14/24 Previous Rx's Medication Instructions Recorded Oseltamivir [Tamiflu] 75 mg PO Q12HR 5 Days #10 cap 08/31/24 Allergies Allergy/AdvReac Type Severity Reaction Status Date / Time No Known Allergies Allergy Verified 10/15/24 12:52 Review of Systems ROS Statement: Those systems with pertinent positive or pertinent negative responses have been documented in the HPI. ROS Other: All systems not noted in ROS Statement are negative. Past Medical History Past Medical History: Hypertension Additional Past Medical History / Comment(s): sickle cell trait, anemia History of Any Multi-Drug Resistant Organisms: None Reported Past Surgical History: No Surgical Hx Reported Past Anesthesia/Blood Transfusion Reactions: No Reported Reaction Past Psychological History: Depression Smoking Status: Never smoker Past Alcohol Use History: Occasional Past Drug Use History: Marijuana General Exam Limitations: no limitations General appearance: alert, in no apparent distress Head exam: Present: atraumatic, normocephalic, normal inspection Eye exam: Present: normal appearance, PERRL, EOMI. Absent: scleral icterus, conjunctival injection, periorbital swelling ENT exam: Present: normal exam, mucous membranes moist Neck exam: Present: normal inspection, full ROM. Absent: tenderness, meningismus, lymphadenopathy Respiratory exam: Present: normal lung sounds bilaterally. Absent: respiratory distress, wheezes, rales, rhonchi, stridor Cardiovascular Exam: Present: regular rate, normal rhythm, normal heart sounds. Absent: systolic murmur, diastolic murmur, rubs, gallop, clicks GI/Abdominal exam: Present: soft, normal bowel sounds. Absent: distended, tenderness, guarding, rebound, rigid Neurological exam: Present: alert, oriented X3, CN II-XII intact, reflexes normal. Absent: motor sensory deficit Course Vital Signs 10/15/24 12:49 Temperature 97.8 F Pulse Rate 73 Respiratory 16 Rate Blood Pressure 141/94 O2 Sat by Pulse 100 Oximetry Medical Decision Making - Medical Decision Making Was pt. sent in by a medical professional or institution (, PA, FISHERIES DIVER, urgent care, hospital, or assisted...) When possible be specific @ -No Did you speak to anyone other than the patient for history (EMS, parent, family, police, friend...)? What history was obtained from this source @ -No Did you review nursing and triage notes (agree or disagree)? Why? @ -I reviewed and agree with nursing and triage notes Were old charts reviewed (outside hosp., previous admission, EMS record, old EKG, old radiological studies, urgent care reports/EKG's, assisted records)? Report findings @ -Reviewed inpatient hematology records Differential Diagnosis (chest pain, altered mental status, abdominal pain women, abdominal pain men, vaginal bleeding, weakness, fever, dyspnea, syncope, headache, dizziness, GI bleed, back pain, seizure, CVA, palpatations, mental health, musculoskeletal)? @ -Differential Musculoskeletal Muscular strain, contusion, ligament sprain, fracture, arthritis, septic arthritis, bursitis, cellulitis, muscle spasm, nerve compression, DVT, arterial occlusion, herpes zoster, electrolyte abnormality, tumor.... This is not meant to be in all inclusive list EKG interpreted by me (3pts min.). @ -None X-rays interpreted by me (1pt min.). @ -None done CT interpreted by me (1pt min.). @ -None done U/S interpreted by me (1pt. min.). @ -None done What testing was considered but not performed or refused? (CT, X-rays, U/S, labs)? Why? @ -None What meds were considered but not given or refused? Why? @ -None Did you discuss the management of the patient with other professionals (professionals i.e. DrJuanito, PA, FISHERIES DIVER, lab, RT, psych nurse, psychiatric social worker, apartment groundskeeper, teacher, water resources technical officer, rifle case repairer)? Give summary @ -No Was smoking cessation discussed for >3mins.? @ -No Was critical care preformed (if so, how long)? @ -No Were there social determinants of health that impacted care today? How? (Homelessness, low income, unemployed, alcoholism, drug addiction, transportation, low edu. Level, literacy, decrease access to med. care, group home, rehab)? @ -No Was there de-escalation of care discussed even if they declined (Discuss DNR or withdrawal of care, Hospice)? DNR status @ -No What co-morbidities impacted this encounter? (DM, HTN, Smoking, COPD, CAD, Cancer, CVA, ARF, Chemo, Hep., AIDS, mental health diagnosis, sleep apnea, morbid obesity)? @ -None Was patient admitted / discharged? Hospital course, mention meds given and route, prescriptions, significant lab abnormalities, going to OR and other pertinent info. @ -Discharge patient presented for body pain. He she is complaining about working too much and is requesting work note. She states that she had sickle cell trait though upon review of hematology there was no evidence upon their studies and that was to have outpatient further workup. Patient is discharged in stable condition return parameters chrissie. Undiagnosed new problem with uncertain prognosis? @ -No Drug Therapy requiring intensive monitoring for toxicity (Heparin, Nitro, In sulin, Cardizem)? @ -No Were any procedures done? @ -No Diagnosis/symptom? @ -Muscle skeletal pain Acute, or Chronic, or Acute on Chronic? @ -Acute Uncomplicated (without systemic symptoms) or Complicated (systemic symptoms)? @ -Uncomplicated Side effects of treatment? @ -No Exacerbation, Progression, or Severe Exacerbation? @ -No Poses a threat to life or bodily function? How? (Chest pain, [place], [place], pneumonia, PE, COPD, DKA, ARF, appy, cholecystitis, CVA, Diverticulitis, Homicidal, Suicidal, threat to staff... and all critical care pts) @ -No - Lab Data Lab Results 10/15/24 Range/Units 13:01 Influenza Type A (PCR) Not Detected (Not Detectd) Influenza Type B (PCR) Not Detected (Not Detectd) RSV (PCR) Not Detected (Not Detectd) SARS-CoV-2 (PCR) Not Detected (Not Detectd) Disposition Clinical Impression: Myalgia Disposition: HOME SELF-CARE Condition: Stable Instructions (If sedation given, give patient instructions): Musculoskeletal Pain (ED) Additional Instructions: Please return to the Emergency Department if symptoms worsen or any other concerns. Is patient prescribed a controlled substance at d/c from ED?: No Referrals: Roderick Mccarthy MD [Primary Care Provider] - 1-2 days Time of Disposition: 14:31
[2024-10-15 15:02] VITALS: BP 139/89; PULSE 76; RESP 20; TEMP 98
== END 2024-10-15 15:04 | disposition home or self-care (01) ==
LOC: EC 12:47
DX: M79.10 Myalgia, unspecified site (principal)
CPT/HCPCS: 87636; 99283; 96372; J1171

== ENCOUNTER 2024-10-27 12:45 | Emergency (ER) | payer OTHER ==
[2024-10-27 12:49] VITALS: TEMP 98.3
--- NOTE | 2024-10-27 14:00 | ED ---
General Adult HPI - General Chief complaint: Back Pain/Injury Stated complaint: Bodyaches,L Leg Numbness Time Seen by Provider: 10/27/24 12:59 Source: patient, RN notes reviewed Mode of arrival: wheelchair Limitations: no limitations - History of Present Illness Onset/Timin -: week(s) Severity scale (1-10): 9 Consistency: constant Improves with: none Associated Symptoms: denies other symptoms Treatments Prior to Arrival: none - Related Data Home Medications Medication Instructions Recorded Confirmed Chlorthalidone [Hygroton] 25 mg PO DAILY 03/23/20 10/27/24 Cyclobenzaprine [Flexeril] 10 mg PO DAILY PRN 03/23/23 10/27/24 Ferrous Sulfate [Iron] 325 mg PO TID 03/23/23 10/27/24 amLODIPine [Norvasc] 10 mg PO DAILY 03/23/23 10/27/24 lisinopriL 40 mg PO DAILY 03/23/23 10/27/24 lamoTRIgine [LaMICtal] 25 mg PO DAILY 04/14/24 10/27/24 Albuterol Nebulized [Ventolin 2.5 mg INHALATION RT-QID PRN 10/27/24 10/27/24 Nebulized] Albuterol Sulfate [Albuterol 2 puff INHALATION RT-QID PRN 10/27/24 10/27/24 Sulfate Hfa] Budesonide/Formoterol Fumarate 2 puff INHALATION RT-BID 10/27/24 10/27/24 [Symbicort 80-4.5 Mcg Inhaler] oxyCODONE-APAP 10-325MG [Percocet 1 tab PO BID PRN 10/27/24 10/27/24 10-325 mg] Previous Rx's Medication Instructions Recorded Ibuprofen [Motrin] 800 mg PO Q8H PRN #30 tab 10/27/24 Allergies Allergy/AdvReac Type Severity Reaction Status Date / Time No Known Allergies Allergy Verified 10/27/24 15:24 Review of Systems ROS Statement: Those systems with pertinent positive or pertinent negative responses have been documented in the HPI. ROS Other: All systems not noted in ROS Statement are negative. Past Medical History Past Medical History: Hypertension Additional Past Medical History / Comment(s): sickle cell trait, anemia History of Any Multi-Drug Resistant Organisms: None Reported Past Surgical History: No Surgical Hx Reported Past Anesthesia/Blood Transfusion Reactions: No Reported Reaction Past Psychological History: Depression Smoking Status: Never smoker Past Alcohol Use History: Occasional Past Drug Use History: Marijuana General Exam Limitations: no limitations Course Vital Signs 10/27/24 12:47 Temperature 98.3 F Pulse Rate 77 Respiratory 18 Rate Blood Pressure 169/102 O2 Sat by Pulse 100 Oximetry Medical Decision Making - Lab Data Result diagrams: 10/27/24 14:21 10/27/24 14:21 Lab Results 10/27/24 10/27/24 Range/Units 14:21 14:21 WBC 7.1 (3.8-10.6) k/uL RBC 4.46 (3.80-5.40) m/uL Hgb 10.7 L (11.4-16.0) gm/dL Hct 35.6 (34.0-46.0) % MCV 79.8 L (80.0-100.0) fL MCH 23.9 L (25.0-35.0) pg MCHC 30.0 L (31.0-37.0) g/dL RDW 18.1 H (11.5-15.5) % Plt Count 245 (150-450) k/uL MPV 9.6 Neutrophils % 40 % Lymphocytes % 31 % Monocytes % 5 % Eosinophils % 20 % Basophils % 1 % Neutrophils # 2.9 (1.3-7.7) k/uL Lymphocytes # 2.2 (1.0-4.8) k/uL Monocytes # 0.3 (0-1.0) k/uL Eosinophils # 1.5 H (0-0.7) k/uL Basophils # 0.1 (0-0.2) k/uL Hypochromasia Moderate Anisocytosis Slight Microcytosis Slight Retic Count 1.3 (0.5-2.0) % Sodium 137 (137-145) mmol/L Potassium 4.2 (3.5-5.1) mmol/L Chloride 107 (98-107) mmol/L Carbon Dioxide 23 (22-30) mmol/L Anion Gap 7 mmol/L BUN 13 (7-17) mg/dL Creatinine 0.68 (0.52-1.04) mg/dL Est GFR (CKD-EPI)AfAm >90 (>60 ml/min/1.73 sqM) Est GFR (CKD-EPI)NonAf >90 (>60 ml/min/1.73 sqM) Glucose 92 (74-99) mg/dL Calcium 10.0 (8.4-10.2) mg/dL Total Bilirubin 0.5 (0.2-1.3) mg/dL AST 20 (14-36) U/L ALT 13 (4-34) U/L Alkaline Phosphatase 41 (38-126) U/L Total Protein 7.7 (6.3-8.2) g/dL Albumin 4.3 (3.5-5.0) g/dL Disposition Clinical Impression: Left knee pain, Myalgia Disposition: HOME SELF-CARE Condition: Good Instructions (If sedation given, give patient instructions): Musculoskeletal Pain (ED), Knee Pain (ED) Additional Instructions: Rest, ice, compression, elevation. Follow-up with orthopedics regarding left knee pain. Prescriptions: Ibuprofen [Motrin] 800 mg PO Q8H PRN #30 tab PRN Reason: Pain Is patient prescribed a controlled substance at d/c from ED?: No Referrals: Roderick Mccarthy MD [Primary Care Provider] - 1-2 days Flaquito Salas DO [Doctor of Osteopathic Medicine] - 1-2 days Time of Disposition: 14:52
[2024-10-27] MEDS: SODIUM CHLORIDE 0.9% 1,000 ML IV STA (14:17)
[2024-10-27] MEDS: KETOROLAC 15 MG/ML 1 ML VIAL IVP STA (14:18)
[2024-10-27] MEDS: MORPHINE SULFATE 2 MG/ML SYRINGE IVP ONE (14:19)
[2024-10-27 14:29] LABS: Anisocytosis Slight; Basophils # (A) 0.1 k/uL (0-0.2); Basophils % (A) 1 %; Eosinophils # (A) 1.5 k/uL (0-0.7); Eosinophils % (A) 20 %; HCT 35.6 % (34.0-46.0); HGB 10.7 gm/dL (11.4-16.0); Hypochromasia Moderate; Lymphocytes # (A) 2.2 k/uL (1.0-4.8); Lymphocytes % (A) 31 %; MCH 23.9 pg (25.0-35.0); MCV 79.8 fL (80.0-100.0); Mean Platelet Volume 9.6; Microcytosis Slight; Monocytes # (A) 0.3 k/uL (0-1.0); Monocytes % (A) 5 %; Neutrophils # (A) 2.9 k/uL (1.3-7.7); Neutrophils % (A) 40 %; Platelet Count 245 k/uL (150-450); RBC 4.46 m/uL (3.80-5.40); RDW 18.1 % (11.5-15.5); Reticulocyte % 1.3 % (0.5-2.0); WBC 7.1 k/uL (3.8-10.6)
[2024-10-27 14:44] LABS: ALT 13 U/L (4-34); AST 20 U/L (14-36); African American GFR (CKD) >90 (>60 ml/min/1.73 sqM); Albumin 4.3 g/dL (3.5-5.0); Alkaline Phosphatase 41 U/L (38-126); Anion Gap 7 mmol/L; Blood Urea Nitrogen 13 mg/dL (7-17); Carbon Dioxide 23 mmol/L (22-30); Chloride 107 mmol/L (98-107); Glucose 92 mg/dL (74-99); Non-African American GFR(CKD) >90 (>60 ml/min/1.73 sqM); Potassium 4.2 mmol/L (3.5-5.1); Sodium 137 mmol/L (137-145); Total Bilirubin 0.5 mg/dL (0.2-1.3); Total Protein 7.7 g/dL (6.3-8.2)
--- NOTE | 2024-10-27 15:06 | XR ---
EXAMINATION TYPE: XR knee complete LT DATE OF EXAM: 10/27/2024 CLINICAL INDICATION: Female, 43 years old with history of Left knee pain, pain TECHNIQUE: 3 views of the knee were obtained. COMPARISON: None. FINDINGS: There is no acute fracture/dislocation evident in left knee. The tri-compartment joint sp aces appear within normal limits. The overlying soft tissue appears unremarkable. IMPRESSION: Unremarkable study. [facility], , 10/27/2024 3:03 PM
[2024-10-27 15:45] VITALS: BP 158/90; PULSE 75; RESP 16
== END 2024-10-27 15:44 | disposition home or self-care (01) ==
LOC: EC 12:45
DX: M25.562 Pain in left knee (principal); M79.10 Myalgia, unspecified site
CPT/HCPCS: 36415; 80053; 85025; 85045; 73562; 99284; 96374; 96375; 96361; J2270; J1885

== ENCOUNTER 2024-11-23 17:46 | Emergency (ER) | payer OTHER ==
[2024-11-23 19:01] LABS: Influenza A Not Detected (Not Detectd); Influenza B Detected (Not Detectd); RSV Not Detected (Not Detectd)
[2024-11-23] MEDS: ACETAMINOPHEN TAB 500 MG TAB PO STA (19:05)
[2024-11-23] MEDS: KETOROLAC 15 MG/ML 1 ML VIAL IVP STA (19:05)
[2024-11-23] MEDS: SODIUM CHLORIDE 0.9% 1,000 ML IV ONE (19:05)
[2024-11-23 19:08] LABS: Basophils # (A) 0.04 10*3/uL (0.00-0.10); Basophils % (A) 0.9 %; Eosinophils # (A) 0.55 10*3/uL (0.04-0.35); Eosinophils % (A) 12.6 %; HCT 31.6 % (37.2-46.3); HGB 10.3 g/dL (12.0-15.0); Lymphocytes # (A) 0.97 10*3/uL (0.90-5.00); Lymphocytes % (A) 22.3 %; MCH 24.2 pg (27.0-32.0); MCHC 32.6 g/dL (32.0-37.0); MCV 74.2 fL (80.0-97.0); Monocytes # (A) 0.67 10*3/uL (0.20-1.00); Monocytes % (A) 15.4 %; Neutrophils # (A) 2.12 10*3/uL (1.80-7.70); Neutrophils % (A) 48.8 %; Platelet Count 212 10*3/uL (140-440); RBC 4.26 10*6/uL (4.10-5.20); RDW 17.2 % (11.5-14.5); WBC 4.35 10*3/uL (4.50-10.00)
[2024-11-23 19:23] LABS: ALT 13 U/L (4-34); AST 27 U/L (14-36); African American GFR (CKD) >90 (>60 ml/min/1.73 sqM); Alkaline Phosphatase 40 U/L (38-126); Anion Gap 9 mmol/L; Blood Urea Nitrogen 8 mg/dL (7-17); Calcium 9.5 mg/dL (8.4-10.2); Carbon Dioxide 23 mmol/L (22-30); Chloride 105 mmol/L (98-107); Glucose 78 mg/dL (74-99); Non-African American GFR(CKD) >90 (>60 ml/min/1.73 sqM); Potassium 4.2 mmol/L (3.5-5.1); Sodium 137 mmol/L (137-145); Total Bilirubin 0.3 mg/dL (0.2-1.3); Total Protein 7.4 g/dL (6.3-8.2)
[2024-11-23 19:58] VITALS: PULSE 85; RESP 16; TEMP 100.4
--- NOTE | 2024-11-23 20:31 | XR ---
EXAMINATION TYPE: XR chest 2V DATE OF EXAM: 11/23/2024 7:47 PM COMPARISON: Chest radiographs from 09/29/2024 CLINICAL INDICATION: Female, 44 years old with history of cough. fever; [facility] TECHNIQUE: XR chest 2V Frontal and lateral views of the chest. FINDINGS: Lungs/Pleura: There is no evidence of pleural effusion, focal consolidation, or pneumothorax. Pulmonary vascularity: Unremarkable. Heart/mediastinum: Cardiomediastinal silhouette is unremarkable. Musculoskeletal: No acute osseous pathology. IMPRESSION: No acute cardiopulmonary disease/process. [facility], , 11/23/2024 8:29 PM
--- NOTE | 2024-11-23 20:36 | ED ---
General Adult HPI - General Chief complaint: Upper Respiratory Infection Stated complaint: Aches,Vomitting Time Seen by Provider: 11/23/24 18:20 Source: patient, RN notes reviewed, old records reviewed Mode of arrival: ambulatory Limitations: no limitations - History of Present Illness Initial comments: Patient is a 44-year-old female presents emergency department complaining of generalized bodyaches, cough, congestion, rhinorrhea, fevers. Has been ongoing for the last few days. Denies any chest pain. Denies shortness of breath. Denies abdominal pain, nausea, vomiting. Has a history of sickle cell trait and occasionally does have pain from it. However she states this seems like it is more of an upper respiratory illness. No known sick contacts. Presents for further evaluation at this time. Has not been taking Tylenol or Motrin for her fevers. - Related Data Home Medications Medication Instructions Recorded Confirmed Chlorthalidone [Hygroton] 25 mg PO DAILY 03/23/20 10/27/24 Cyclobenzaprine [Flexeril] 10 mg PO DAILY PRN 03/23/23 10/27/24 Ferrous Sulfate [Iron] 325 mg PO TID 03/23/23 10/27/24 amLODIPine [Norvasc] 10 mg PO DAILY 03/23/23 10/27/24 lisinopriL 40 mg PO DAILY 03/23/23 10/27/24 lamoTRIgine [LaMICtal] 25 mg PO DAILY 04/14/24 10/27/24 Albuterol Nebulized [Ventolin 2.5 mg INHALATION RT-QID PRN 10/27/24 10/27/24 Nebulized] Albuterol Sulfate [Albuterol 2 puff INHALATION RT-QID PRN 10/27/24 10/27/24 Sulfate Hfa] Budesonide/Formoterol Fumarate 2 puff INHALATION RT-BID 10/27/24 10/27/24 [Symbicort 80-4.5 Mcg Inhaler] oxyCODONE-APAP 10-325MG [Percocet 1 tab PO BID PRN 10/27/24 10/27/24 10-325 mg] Previous Rx's Medication Instructions Recorded Ibuprofen [Motrin] 800 mg PO Q8H PRN #30 tab 10/27/24 Allergies Allergy/AdvReac Type Severity Reaction Status Date / Time No Known Allergies Allergy Verified 11/23/24 18:18 Review of Systems ROS Statement: Those systems with pertinent positive or pertinent negative responses have been documented in the HPI. Review of Systems: CONST: Endorses fever EYES: Denies blurry vision ENT: Endorses congestion C/V: Denies Chest pain RESP: Denies shortness of breath GI: Denies abdominal pain : Denies dysuria SKIN: Denies rash. MSK: Denies joint pain. NEURO: Denies headache ROS Other: All systems not noted in ROS Statement are negative. Past Medical History Past Medical History: Hypertension Additional Past Medical History / Comment(s): sickle cell trait, anemia History of Any Multi-Drug Resistant Organisms: None Reported Past Surgical History: No Surgical Hx Reported Past Anesthesia/Blood Transfusion Reactions: No Reported Reaction Past Psychological History: Depression Smoking Status: Never smoker Past Alcohol Use History: Occasional Past Drug Use History: Marijuana General Exam - General Exam Comments Initial Comments: General: Appears in no acute distress. Febrile. HEAD: Normal with no signs of head trauma. EYES: EOMI ENT: Hearing grossly intact, normal oropharynx. RESPIRATORY: Clear breath sounds bilaterally. No wheezes, rales, or rhonchi. No respiratory distress. No hypoxia. C/V: Regular rate and rhythm. S1 and S2 auscultated, no edema, peripheral pulses 2+ and intact throughout ABD: Abd is soft, nontender, nondistended EXT: Normal range of motion, no obvious deformity SKIN: No rashes or lesions observed on exposed skin. NEURO: Alert and oriented x 4. Limitations: no limitations Course Vital Signs 11/23/24 11/23/24 11/23/24 18:15 19:58 20:47 Temperature 101.7 F H 100.4 F H Pulse Rate 102 H 85 85 Respiratory 20 16 16 Rate Blood Pressure 146/90 144/94 146/94 O2 Sat by Pulse 100 100 100 Oximetry Medical Decision Making - Medical Decision Making Was pt. sent in by a medical professional or institution (, PA, SENIOR TECHNICAL SPECIALIST, urgent care, hospital, or prison...) When possible be specific @ -No Did you speak to anyone other than the patient for history (EMS, parent, family, police, friend...)? What history was obtained from this source @ -No Did you review nursing and triage notes (agree or disagree)? Why? @ -I reviewed and agree with nursing and triage notes Were old charts reviewed (outside hosp., previous admission, EMS record, old EKG, old radiological studies, urgent care reports/EKG's, prison records)? Report findings @ -No old charts were reviewed Differential Diagnosis (chest pain, altered mental status, abdominal pain women, abdominal pain men, vaginal bleeding, weakness, fever, dyspnea, syncope, headache, dizziness, GI bleed, back pain, seizure, CVA, palpatations, mental health, musculoskeletal)? @ -COVID, flu, RSV, pneumonia. This list is not all inclusive. EKG interpreted by me (3pts min.). @ -None none X-rays interpreted by me (1pt min.). @ -Chest x-ray reveals no evidence of acute cardiopulmonary process CT interpreted by me (1pt min.). @ -None done U/S interpreted by me (1pt. min.). @ -None done What testing was considered but not performed or refused? (CT, X-rays, U/S, labs)? Why? @ -None What meds were considered but not given or refused? Why? @ -None Did you discuss the management of the patient with other professionals (professionals i.e. , PA, SENIOR TECHNICAL SPECIALIST, lab, RT, psych nurse, social service assistant, chin strap sewer, teacher, tourist information officer, case preparer and liner)? Give summary @ -No Was smoking cessation discussed for >3mins.? @ -No Was critical care preformed (if so, how long)? @ -No Were there social determinants of health that impacted care today? How? ( Homelessness, low income, unemployed, alcoholism, drug addiction, transportation, low edu. Level, literacy, decrease access to med. care, [facility], rehab)? @ -No Was there de-escalation of care discussed even if they declined (Discuss DNR or withdrawal of care, Hospice)? DNR status @ -No What co-morbidities impacted this encounter? (DM, HTN, Smoking, COPD, CAD, Cancer, CVA, ARF, Chemo, Hep., AIDS, mental health diagnosis, sleep apnea, morbid obesity)? @ -None Was patient admitted / discharged? Hospital course, mention meds given and route, prescriptions, significant lab abnormalities, going to OR and other pertinent info. @ -Based on patient's presentation physical exam, presents emergency department for URI symptoms and fever. Does have a history of sickle cell trait. Will obtain basic labs, chest x-ray. Very unlikely to be sickle cell crisis considering patient only has sickle cell trait. She was symptomatically treat with IV fluids, Toradol, as well as a dose of Tylenol. She was in agreement this plan. Chest x-ray shows no pneumonia. Laboratory studies are all within acceptable limits including chronic microcytic anemia with a hemoglobin of 10.2 which is stable for the patient. Reticulocyte count is a send out lab but unlikely to be changed. Viral swabs positive for influenza B. I discussed results with the patient. I did offer Tamiflu which she declined. Patient will be given a dose of IV steroid and discharged home. Recommended Tylenol Motrin for symptomatic treatment. She was in agreement this plan. Fevers improved at time of discharge. I instructed the patient to follow up with their PCP in the next 1-3 days. I explained that the patient should return to the emergency department if they experience any worsening symptoms. Strict return precautions were discussed with the patient. The patient expressed understanding of these instructions. I answe red all questions that the patient had. The patient was discharged home in good condition with their prescriptions and follow up information. Undiagnosed new problem with uncertain prognosis? @ -No Drug Therapy requiring intensive monitoring for toxicity (Heparin, Nitro, Insulin, Cardizem)? @ -No Were any procedures done? @ -No Diagnosis/symptom? @ -Influenza B Acute, or Chronic, or Acute on Chronic? @ -Acute Uncomplicated (without systemic symptoms) or Complicated (systemic symptoms)? @ -Uncomplicated Side effects of treatment? @ -No Exacerbation, Progression, or Severe Exacerbation? @ -No Poses a threat to life or bodily function? How? (Chest pain, [place], [place], pneumonia, PE, COPD, DKA, ARF, appy, cholecystitis, CVA, Diverticulitis, Homicidal, Suicidal, threat to staff... and all critical care pts) @ -Unlikely at this time - Lab Data Result diagrams: 11/23/24 19:02 11/23/24 19:02 Lab Results 11/23/24 11/23/24 11/23/24 Range/Units 18:20 19:02 19:02 WBC 4.35 L (4.50-10.00) 10*3/uL RBC 4.26 (4.10-5.20) 10*6/uL Hgb 10.3 L (12.0-15.0) g/dL Hct 31.6 L (37.2-46.3) % MCV 74.2 L (80.0-97.0) fL MCH 24.2 L (27.0-32.0) pg MCHC 32.6 (32.0-37.0) g/dL Plt Count 212 (140-440) 10*3/uL Immature Gran % (Auto) 0 % Neutrophils % 48.8 % Lymphocytes % 22.3 % Monocytes % 15.4 % Eosinophils % 12.6 % Basophils % 0.9 % Immature Gran # 0.00 (0.00-0.04) 10*3/uL Neutrophils # 2.12 (1.80-7.70) 10*3/uL Lymphocytes # 0.97 (0.90-5.00) 10*3/uL Monocytes # 0.67 (0.20-1.00) 10*3/uL Eosinophils # 0.55 H (0.04-0.35) 10*3/uL Basophils # 0.04 (0.00-0.10) 10*3/uL Immature Plt Fraction 8.0 H (1.1-6.1) % Retic Count Cancelled Sodium 137 (137-145) mmol/L Potassium 4.2 (3.5-5.1) mmol/L Chloride 105 (98-107) mmol/L Carbon Dioxide 23 (22-30) mmol/L Anion Gap 9 mmol/L BUN 8 (7-17) mg/dL Creatinine 0.57 (0.52-1.04) mg/dL Est GFR (CKD-EPI)AfAm >90 (>60 ml/min/1.73 sqM) Est GFR (CKD-EPI)NonAf >90 (>60 ml/min/1.73 sqM) Glucose 78 (74-99) mg/dL Calcium 9.5 (8.4-10.2) mg/dL Magnesium 2.0 (1.6-2.3) mg/dL Total Bilirubin 0.3 (0.2-1.3) mg/dL AST 27 (14-36) U/L ALT 13 (4-34) U/L Alkaline Phosphatase 40 (38-126) U/L Total Protein 7.4 (6.3-8.2) g/dL Albumin 4.0 (3.5-5.0) g/dL Influenza Type A (PCR) Not Detected (Not Detectd) Influenza Type B (PCR) Detected A (Not Detectd) RSV (PCR) Not Detected (Not Detectd) SARS-CoV-2 (PCR) Not Detected (Not Detectd) Disposition Clinical Impression: Influenza B Disposition: HOME SELF-CARE Condition: Good Instructions (If sedation given, give patient instructions): Influenza (ED) Additional Instructions: You have influenza. Use supportive care for management including Tylenol Motrin at home. Return if any worsening symptoms. Is patient prescribed a controlled substance at d/c from ED?: No Referrals: Roderick Mccarthy MD [Primary Care Provider] - 1-2 days Time of Disposition: 20:35
[2024-11-23] MEDS: DEXAMETHASONE SOD PHOSPHATE 4 MG/ML 1 ML VIAL IVP STA (20:44)
[2024-11-23 20:47] VITALS: BP 146/94
[2024-11-24 02:24] LABS: Reticulocyte % 0.61 % (0.10-1.80)
== END 2024-11-23 20:47 | disposition home or self-care (01) ==
LOC: EC 17:46
DX: J10.1 Influenza due to other identified influenza virus with other respiratory manifestations (principal); D50.9 Iron deficiency anemia, unspecified
CPT/HCPCS: 36415; 80053; 83735; 85025; 85045; 87636; 71046; 99284; 96374; 96375; 96361 ×2; J1100; J1885